=== PATIENT | female | born 1965 | race African-American/Black ===

== ENCOUNTER 2017-05-20 11:34 | Inpatient (IN) | payer OTHER ==
[2017-05-20 12:23] VITALS: BMI 29.0
--- NOTE | 2017-05-20 15:09 | HP ---
CIWA Score - CIWA Score Nausea/Vomitin-No Nausea/No Vomiting Muscle Tremors: 3 Anxiety: 5 Agitation: 3 Paroxysmal Sweats: No Perspiration Orientation: 0-Oriented Tacttile Disturbances: 3-Moderate Itch/Numb/Burn Auditory Disturbances: 0-None Visual Disturbances: 0-None Headache: 0-None Present CIWA-Ar Total Score: 14 Admission ROS BHS - HPI Chief Complaint: WITHDRAWAL SX FROM ALCOHOL Allergies/Adverse Reactions: Allergies Allergy/AdvReac Type Severity Reaction Status Date / Time strawberry Allergy Severe Verified 05/20/17 13:19 tomato Allergy Mild Rash Verified 05/20/17 13:18 Penicillins AdvReac Intermediate Rash Verified 05/20/17 13:17 History of Present Illness: 51 Y/O AA/FEMALE WITH A HX OF ALCOHOL AND COCAINE DEPENDENCE ON MMTP SEEKING DETOX [place] Exam Limitations: No Limitations - Ebola screening Have you traveled outside of the country in the last 21 days: No (N) Have you had contact with anyone from an Ebola affected area: No Have you been sick,other than usual withdrawal symptoms: No Do you have a fever: No - Review of Systems Constitutional: Chills, Night Sweats, Changes in sleep EENT: reports: Blurred Vision (WEARS), Tearing, Nose Congestion, Dental Problems (UPPER DENTURE) Respiratory: reports: Shortness of Breath (HX OF ASTHMA), Wheezing Cardiac: reports: No Symptoms Reported GI: reports: Constipated : reports: Frequency Musculoskeletal: reports: Back Pain, Muscle Pain Integumentary: reports: Other (GENERALIZED VITILIGO) Neuro: reports: Headache Endocrine: reports: No Symptoms Reported Hematology: reports: Anemia Psychiatric: reports: Orientated x3, Anxious, Depressed Other Systems: Reviewed and Negative Patient History - Patient Medical History Hx Asthma: Yes (MDI) Hx Chronic Obstructive Pulmonary Disease (COPD): No Hx Cardiac Disorders: No Hx Hypertension: Yes Hx Seizures: No Hx Diabetes: No Hx Gastrointestinal Disorders: No Hx Genitourinary Disorders: No Hx Sexually Transmitted Disorders: No Hx Renal Disease (ESRD): No Hx Thyroid Disease: Yes (HX "BUT THEY SAY I DON'T HAVE IT NO MORE") Hx Human Immunodeficiency Virus (HIV): No (NEGATIVE HX) Hx Hepatitis C: No Hx Depression: Yes Hx Suicide Attempt: No (DENIES) Hx Bipolar Disorder: Yes Hx Schizophrenia: No - Patient Surgical History Past Surgical History: No Hx Neurologic Surgery: No Hx Cataract Extraction: No Hx Cardiac Surgery: No Hx Lung Surgery: No Hx Breast Surgery: No Hx Breast Biopsy: No Hx Abdominal Surgery: No Hx Appendectomy: No Hx Cholecystectomy: No Hx Genitourinary Surgery: No Hx Section: No Hx Orthopedic Surgery: No Anesthesia Reaction: No - PPD History Previous Implant?: Yes Documented Results: Negative w/o proof Implanted On Prior [facility] Admission?: No PPD to be Administered?: Yes - Reproductive History Patient is a Female of Child Bearing Age (11 -55 yrs old): Yes Last Menstrual Period: 03/25/17 Patient : No - Smoking Cessation Smoking history: Current every day smoker Have you smoked in the past 12 months: Yes Aproximately how many cigarettes per day: 10 Hx Chewing Tobacco Use: No Initiated information on smoking cessation: Yes 'Breaking Loose' booklet given: 05/20/17 - Substance & Tx. History Hx Alcohol Use: Yes (BEER) Hx Substance Use: Yes (CRACK) Substance Use Type: Alcohol, Cocaine Hx Substance Use Treatment: Yes (LAST TX AT [facility]) - Substances Abused Crack Route: Smoking Frequency: Daily Amount used: $150-100 per day Age of first use: 22 Date of Last Use: 05/20/17 Alcohol Route: Oral Frequency: Daily Amount used: 6pack of beer a day Age of first use: 23 Date of Last Use: 05/20/17 Family Disease History - Family Disease History Family History: Denies Admission Physical Exam BHS - Vital Signs Vital Signs: Vital Signs - 24 hr 05/20/17 12:21 Temperature 98.1 F Pulse Rate 69 Respiratory 18 Rate Blood Pressure 167/98 - Physical General Appearance: Yes: Moderate Distress, Irritable, Anxious HEENTM: Yes: EOMI, Normocephalic, RIAZ, Pharynx Normal Respiratory: Yes: Chest Non-Tender, Lungs Clear, Normal Breath Sounds, No Respiratory Distress Neck: Yes: No masses,lesions,Nodules, Supple, Trachea in good position Breast: Yes: Breast Exam Deferred Cardiology: Yes: Regular Rhythm, Regular Rate, S1, S2 Abdominal: Yes: Normal Bowel Sounds, Non Tender, Soft Genitourinary: Yes: Other (N/C) Back: Yes: Within Normal Limits Musculoskeletal: Yes: full range of Motion, Gait Steady Extremities: Yes: Normal Range of Motion, Non-Tender Neurological: Yes: iron installer II-XII NML intact, Fully Oriented, Alert, Motor Strength 5/5 Integumentary: Yes: Dry, Warm, Other (VITILIGO--GENERALIZED PATCHES OF DEPIGMENTED SKIN AREAS ON HANDS, LEGS AND FACE(MOUTH)) Lymphatic: Yes: Within Normal Limits - Diagnostic (1) Alcohol dependence with uncomplicated withdrawal Current Visit: Yes Status: Acute (2) Cocaine dependence, uncomplicated Current Visit: Yes Status: Acute (3) Vitiligo Current Visit: Yes Status: Chronic (4) Hypertension Current Visit: Yes Status: Chronic Qualifiers: Hypertension type: essential hypertension Qualified Code(s): I10 - Essential (primary) hypertension (5) History of asthma Current Visit: Yes Status: Chronic (6) Hypothyroidism Current Visit: Yes Status: Chronic Qualifiers: Hypothyroidism type: unspecified Qualified Code(s): E03.9 - Hypothyroidism , unspecified Cleared for Admission S - [facility] Level of Care: Medically Managed Detox Regimen/Protocol: Valium (PT PREFERS VALIUM TO LIBRIUM ) [facility] Breath Alcohol Content Breath Alcohol Content: 0 Urine Pregancy Test - Result Urine Test Results: Negative- NO Line Present Urine Drug Screen - Results Drug Screen Negative: No Urine Drug Screen Results: [facility]-Cocaine, MTD-Methadone
[2017-05-20] MEDS ORDERED: MAG HYDROX/AL HYDROX/SIMETH 30 ML UNIT-DOSE CUP PO PRN (15:23)
[2017-05-20] MEDS ORDERED: ACETAMINOPHEN 325 MG TABLET (FP) PO PRN (15:23)
[2017-05-20] MEDS ORDERED: IBUPROFEN 400 MG TABLET (FP) PO PRN (15:23)
[2017-05-20] MEDS ORDERED: NICOTINE POLACRILEX 2 MG GUM BUC PRN (15:23)
[2017-05-20] MEDS ORDERED: MAGNESIUM HYDROX 2400MG/30ML ORAL SUSPENSION 30 ML CUP PO PRN (15:23)
[2017-05-20] MEDS ORDERED: MAGNESIUM CITRATE 300 ML BOTTLE PO PRN (15:23)
[2017-05-20] MEDS ORDERED: LOPERAMIDE HCL 2 MG CAPSULE PO PRN (15:23)
[2017-05-20] MEDS ORDERED: P-EPHED 60MG/TRIPROLIDI 2.5MG TABLET PO PRN (15:23)
[2017-05-20] MEDS ORDERED: guaiFENesin/D-METHORPHAN HB 10 ML UNIT-DOSE CUPS PO PRN (15:23)
[2017-05-20] MEDS ORDERED: MENTHOL/PHENOL 1 EACH UD MM PRN (15:23)
[2017-05-20 16:31] LABS: HEMOGLOBIN 12.9 GM/dL (10.7-15.3); MCH 32.3 pg (25.7-33.7); MCHC 33.1 g/dl (32.0-36.0); MEAN CELL VOLUME 97.4 fl (80-96); MEAN PLT VOLUME 10.3 fl (7.5-11.1); PLATELET COUNT 213 K/MM3 (134-434); RDW 14.4 % (11.6-15.6); WHITE BLOOD COUNT 6.3 K/mm3 (4.0-10.0)
[2017-05-20] MEDS ORDERED: diazePAM 5 MG TABLET PO ONE (17:15)
--- NOTE | 2017-05-20 17:31 | CONSULT ---
[facility] Psychiatric Consult - Data Date of interview: 05/20/17 Admission source: [facility] Identifying data: Pt. is a 51 year old single female, mother of three, unemployed and on disability. This is patient's first admission to [facility]. Pt admitted to for alcohol and crack dependence. Substance Abuse History: Following information confirmed with Ms. Light: Smoking Cessation. Smoking history: Current every day smoker. Have you smoked in the past 12 months: Yes. Aproximately how many cigarettes per day: 10. Hx Chewing Tobacco Use: No. Initiated information on smoking cessation: Yes. ' Breaking Loose' booklet given: 05/20/17. - Substance & Tx. History. Hx Alcohol Use: Yes (BEER). Hx Substance Use: Yes (CRACK). Substance Use Type: Alcohol, Cocaine. Hx Substance Use Treatment: Yes ([facility] - Substances Abused. Crack. Route: Smoking. Frequency: Daily. Amount used : $150-100 per day. Age of first use: 22. Date of Last Use: 05/20/17. Alcohol. Route: Oral. Frequency: Daily. Amount used: 6pack of beer a day. Age of first use: 23. Date of Last Use: 05/20/17 Medical History: hx of thyorid disease and Asthma Psychiatric History: Pt. denies h/o psychiatric hospitalizations. Pt. reports outpatient psychiatric care at [facility] by Dr. Cristiana Quintana. Reports a diagnosis of bipolar disorder. States she is prescribed seroquel 200mg, abilify 10mg, depakote 500 TID, and ambien 10mg qhs. It Senior Analyst contacted patient's pharmacy. As per patient's pharmacy, [facility] # [phone], patient is prescribed Depakote 500mg Delayed release TID,Seroquel 200mg qhs, effexor 75mg XR 1-2 capusles, abilify 10mg, and ambien 10mg qhs. Pt. denies h/o suicide attempts. Pt. denies suicidal and homicidal ideation. Physical/Sexual Abuse/Trauma History: Denies. Mental Status Exam - Mental Status Exam Alert and Oriented to: Time, Place, Person Cognitive Function: Good Patient Appearance: Unkempt Mood: Euthymic Affect: Mood Congruent Patient Behavior: Cooperative Speech Pattern: Appropriate Voice Loudness: Normal Thought Process: Goal Oriented Thought Disorder: Not Present Hallucinations: Denies Suicidal Ideation: Denies Homicidal Ideation: Denies Insight/Judgement: Poor Sleep: Poorly Appetite: Fair Muscle strength/Tone: Normal Gait/Station: Normal Psychiatric Findings - Problem List ([place] 1, 2,3) (1) Bipolar disorder Current Visit: Yes Status: Chronic Comment: Self reports. (2) Alcohol dependence with uncomplicated withdrawal Current Visit: Yes Status: Acute (3) Cocaine dependence, uncomplicated Current Visit: Yes Status: Acute - Initial Treatment Plan Initial Treatment Plan: Psychoeducation provided. Detoxification in progress. Seroquel 200mg qhs, abilify 10mg, and effexor 75mg ER ordered. Depakote will be held until lab results are complete. Ambien 10mg will also be held due to patient's request to avoid oversedation. Valproic acid level to be ordered for the morning. Benefits and side effects discussed. Verbal consent given. Will continue to monitor patient.
[2017-05-20] MEDS: NICOTINE 14 MG/24 HOURS TOPICAL PATCH TD SCH (17:46)
[2017-05-20 18:28] LABS: ALBUMIN 3.6 g/dl (3.4-5.0); ALK PHOS 148 U/L (45-117); BILIRUBIN,TOTAL 0.4 mg/dL (0.2-1.0); BLOOD UREA NITROGEN 12 mg/dL (7-18); CALCIUM 8.6 mg/dL (8.5-10.1); CO2 30 mmol/L (21-32); CREATININE 0.9 mg/dL (0.55-1.02); GLUCOSE,RANDOM 78 mg/dL (74-106); SGOT/AST 15 U/L (15-37); SGPT/ALT 21 U/L (12-78); TOT PROT 7.7 g/dl (6.4-8.2)
[2017-05-20 19:51] LABS: ANION GAP 4 (8-16); CHLORIDE 105 mmol/L (98-107); POTASSIUM 3.9 mmol/L (3.5-5.1); SODIUM 139 mmol/L (136-145)
[2017-05-20] MEDS ORDERED: ARIPiprazole 10 MG TABLET PO SCH (22:00)
[2017-05-20] MEDS ORDERED: PATIENT'S OWN MEDICATION (NON-FORMULARY) (Clonidine Hcl [Catapres] 0.2 MG) PO SCH (22:00)
[2017-05-20] MEDS: QUEtiapine FUMARATE 200 MG TABLET PO SCH (22:18)
[2017-05-20] MEDS: cloNIDine HCL 0.1 MG TABLET PO SCH (22:18)
[2017-05-20] MEDS: diazePAM 5 MG TABLET PO SCH (22:18)
[2017-05-20] MEDS: THIAMINE HCL 100 MG TABLET (FP) PO SCH (22:18)
[2017-05-21 00:24] LABS: URINE APPEARANCE CLEAR; URINE BILIRUBIN NEGATIVE (NEGATIVE); URINE BLOOD NEGATIVE (NEGATIVE); URINE COLOR LTYELLOW; URINE GLUCOSE (UA) NEGATIVE (NEGATIVE); URINE KETONE NEGATIVE (NEGATIVE); URINE LEUK ESTERASE NEGATIVE (NEGATIVE); URINE NITRITE NEGATIVE (NEGATIVE); URINE UROBILINOGEN NEGATIVE mg/dL (0.2-1.0)
[2017-05-21 00:30] LABS: URINE PROTEIN 1+ (NEGATIVE)
[2017-05-21 00:38] LABS: EPI CELLS RARE /HPF (FEW); URINE MUCUS RARE
[2017-05-21] MEDS: diazePAM 5 MG TABLET PO SCH ×3 (05:35→22:13)
[2017-05-21] MEDS: METHADONE HCL 40 MG DISPERSABLE TABLET PO SCH (05:35)
--- NOTE | 2017-05-21 08:03 | EKG ---
Test Reason : Blood Pressure : / mmHG Vent. Rate : 060 BPM Atrial Rate : 060 BPM P-R Int : 164 ms QRS Dur : 090 ms QT Int : 452 ms P-R-T Axes : 068 049 041 degrees QTc Int : 452 ms NORMAL SINUS RHYTHM MINIMAL VOLTAGE CRITERIA FOR LVH, MAY BE NORMAL VARIANT BORDERLINE ECG NO PREVIOUS ECGS AVAILABLE Confirmed by MART ALARCON MD ([id number]) on 05/21/2017 8:03:28 AM Referred By: Confirmed By:MART ALARCON MD
[2017-05-21] MEDS: LISINOPRIL 20 MG TABLET (FP) PO SCH (10:39)
[2017-05-21] MEDS: PRENATAL VITAMINS W/ FOLIC ACID TABLET (FP) PO SCH (10:39)
[2017-05-21] MEDS: ARIPiprazole 10 MG TABLET PO SCH (10:39)
[2017-05-21] MEDS: VENLAFAXINE HCL 75 MG E.R. CAPSULES (FP) PO SCH (10:39)
[2017-05-21] MEDS: diazePAM 5 MG TABLET PO PRN ×2 (10:39→18:36)
[2017-05-21] MEDS: cloNIDine HCL 0.1 MG TABLET PO SCH ×2 (10:39→22:13)
[2017-05-21] MEDS: NICOTINE 14 MG/24 HOURS TOPICAL PATCH TD SCH (10:42)
--- NOTE | 2017-05-21 10:46 | PN ---
S CIWA - CIWA Score Nausea/Vomitin-No Nausea/No Vomiting Muscle Tremors: 4-Moderate,w/Arms Extend Anxiety: 3 Agitation: 3 Paroxysmal Sweats: 1-Minimal Palms Moist Orientation: 0-Oriented Tacttile Disturbances: 0-None Auditory Disturbances: 0-None Visual Disturbances: 0-None Headache: 0-None Present CIWA-Ar Total Score: 11 BHS Progress Note (SOAP) Subjective: tremor sweat anxiety Objective: 05/21/17 10:45 Vital Signs Temperature 96.9 F L 05/21/17 10:00 Pulse Rate 60 05/21/17 10:00 Respiratory Rate 18 05/21/17 10:00 Blood Pressure 139/61 05/21/17 10:00 O2 Sat by Pulse Oximetry (%) Laboratory Last Values WBC 6.3 K/mm3 (4.0-10.0) 05/20/17 15:30 RBC 4.00 M/mm3 (3.60-5.2) 05/20/17 15:30 Hgb 12.9 GM/dL (10.7-15.3) 05/20/17 15:30 Hct 39.0 % (32.4-45.2) 05/20/17 15:30 MCV 97.4 fl (80-96) H 05/20/17 15:30 MCH 32.3 pg (25.7-33.7) 05/20/17 15:30 MCHC 33.1 g/dl (32.0-36.0) 05/20/17 15:30 RDW 14.4 % (11.6-15.6) 05/20/17 15:30 Plt Count 213 K/MM3 (134-434) 05/20/17 15:30 MPV 10.3 fl (7.5-11.1) 05/20/17 15:30 Sodium 139 mmol/L (136-145) 05/20/17 15:30 Potassium 3.9 mmol/L (3.5-5.1) 05/20/17 15:30 Chloride 105 mmol/L (98-107) 05/20/17 15:30 Carbon Dioxide 30 mmol/L (21-32) 05/20/17 15:30 Anion Gap 4 (8-16) L 05/20/17 15:30 BUN 12 mg/dL (7-18) 05/20/17 15:30 Creatinine 0.9 mg/dL (0.55-1.02) 05/20/17 15:30 Creat Clearance w eGFR > 60 (>60) 05/20/17 15:30 Random Glucose 78 mg/dL (74-106) 05/20/17 15:30 Calcium 8.6 mg/dL (8.5-10.1) 05/20/17 15:30 Total Bilirubin 0.4 mg/dL (0.2-1.0) 05/20/17 15:30 AST 15 U/L (15-37) 05/20/17 15:30 ALT 21 U/L (12-78) 05/20/17 15:30 Alkaline Phosphatase 148 U/L (45-117) H 05/20/17 15:30 Total Protein 7.7 g/dl (6.4-8.2) 05/20/17 15:30 Albumin 3.6 g/dl (3.4-5.0) 05/20/17 15:30 Urine Color Ltyellow 05/20/17 20:00 Urine Appearance Clear 05/20/17 20:00 Urine pH 5.0 (5.0-8.0) 05/20/17 20:00 Ur Specific [place] 1.016 (1.001-1.035) 05/20/17 20:00 Urine Protein 1+ (NEGATIVE) H 05/20/17 20:00 Urine Glucose (UA) Negative (NEGATIVE) 05/20/17 20:00 Urine Ketones Negative (NEGATIVE) 05/20/17 20:00 Urine Blood Negative (NEGATIVE) 05/20/17 20:00 Urine Nitrite Negative (NEGATIVE) 05/20/17 20:00 Urine Bilirubin Negative (NEGATIVE) 05/20/17 20:00 Urine Urobilinogen Negative mg/dL (0.2-1.0) 05/20/17 20:00 Ur Leukocyte Esterase Negative (NEGATIVE) 05/20/17 20:00 Urine WBC (Auto) 2 /hpf (3-5) 05/20/17 20:00 Urine RBC (Auto) 1 /hpf (0-3) 05/20/17 20:00 Ur Epithelial Cells Rare /HPF (FEW) 05/20/17 20:00 Urine Mucus Rare 05/20/17 20:00 RPR Titer Nonreactive (NONREACTIVE) 05/20/17 15:30 HIV 1&2 Antibody Screen Negative 05/20/17 15:00 HIV P24 Antigen Negative 05/20/17 15:00 lab noted Assessment: 05/21/17 10:45 withdrawal sx Plan: continue detox
--- NOTE | 2017-05-21 18:03 | PN ---
[facility] Progress Note Note: Psychiatric Nurse Practitioner: Patient approached in reference to restarting depakote. Patient's depakote level was 3.364. Pt. made aware of her current depakote level. Pt reports not taking the depakote and refuses to restart the medication. Will continue to monitor.
[2017-05-21] MEDS: THIAMINE HCL 100 MG TABLET (FP) PO SCH (22:13)
[2017-05-21] MEDS: QUEtiapine FUMARATE 200 MG TABLET PO SCH (22:14)
[2017-05-22] MEDS: METHADONE HCL 40 MG DISPERSABLE TABLET PO SCH (05:37)
--- NOTE | 2017-05-22 09:48 | PN ---
S CIWA - CIWA Score Nausea/Vomitin-No Nausea/No Vomiting Muscle Tremors: 3 Anxiety: 2 Agitation: 3 Paroxysmal Sweats: 1-Minimal Palms Moist Orientation: 0-Oriented Tacttile Disturbances: 0-None Auditory Disturbances: 0-None Visual Disturbances: 0-None Headache: 0-None Present CIWA-Ar Total Score: 9 BHS Progress Note (SOAP) Subjective: sweat tremor anxiety agitation Objective: 05/22/17 09:47 Vital Signs Temperature 98.1 F 05/22/17 06:00 Pulse Rate 60 05/22/17 06:00 Respiratory Rate 18 05/22/17 06:00 Blood Pressure 142/79 05/22/17 06:00 O2 Sat by Pulse Oximetry (%) Laboratory Last Values WBC 6.3 K/mm3 (4.0-10.0) 05/20/17 15:30 RBC 4.00 M/mm3 (3.60-5.2) 05/20/17 15:30 Hgb 12.9 GM/dL (10.7-15.3) 05/20/17 15:30 Hct 39.0 % (32.4-45.2) 05/20/17 15:30 MCV 97.4 fl (80-96) H 05/20/17 15:30 MCH 32.3 pg (25.7-33.7) 05/20/17 15:30 MCHC 33.1 g/dl (32.0-36.0) 05/20/17 15:30 RDW 14.4 % (11.6-15.6) 05/20/17 15:30 Plt Count 213 K/MM3 (134-434) 05/20/17 15:30 MPV 10.3 fl (7.5-11.1) 05/20/17 15:30 Sodium 139 mmol/L (136-145) 05/20/17 15:30 Potassium 3.9 mmol/L (3.5-5.1) 05/20/17 15:30 Chloride 105 mmol/L (98-107) 05/20/17 15:30 Carbon Dioxide 30 mmol/L (21-32) 05/20/17 15:30 Anion Gap 4 (8-16) L 05/20/17 15:30 BUN 12 mg/dL (7-18) 05/20/17 15:30 Creatinine 0.9 mg/dL (0.55-1.02) 05/20/17 15:30 Creat Clearance w eGFR > 60 (>60) 05/20/17 15:30 Random Glucose 78 mg/dL (74-106) 05/20/17 15:30 Calcium 8.6 mg/dL (8.5-10.1) 05/20/17 15:30 Total Bilirubin 0.4 mg/dL (0.2-1.0) 05/20/17 15:30 AST 15 U/L (15-37) 05/20/17 15:30 ALT 21 U/L (12-78) 05/20/17 15:30 Alkaline Phosphatase 148 U/L (45-117) H 05/20/17 15:30 Total Protein 7.7 g/dl (6.4-8.2) 05/20/17 15:30 Albumin 3.6 g/dl (3.4-5.0) 05/20/17 15:30 Urine Color Ltyellow 05/20/17 20:00 Urine Appearance Clear 05/20/17 20:00 Urine pH 5.0 (5.0-8.0) 05/20/17 20:00 Ur Specific [place] 1.016 (1.001-1.035) 05/20/17 20:00 Urine Protein 1+ (NEGATIVE) H 05/20/17 20:00 Urine Glucose (UA) Negative (NEGATIVE) 05/20/17 20:00 Urine Ketones Negative (NEGATIVE) 05/20/17 20:00 Urine Blood Negative (NEGATIVE) 05/20/17 20:00 Urine Nitrite Negative (NEGATIVE) 05/20/17 20:00 Urine Bilirubin Negative (NEGATIVE) 05/20/17 20:00 Urine Urobilinogen Negative mg/dL (0.2-1.0) 05/20/17 20:00 Ur Leukocyte Esterase Negative (NEGATIVE) 05/20/17 20:00 Urine WBC (Auto) 2 /hpf (3-5) 05/20/17 20:00 Urine RBC (Auto) 1 /hpf (0-3) 05/20/17 20:00 Ur Epithelial Cells Rare /HPF (FEW) 05/20/17 20:00 Urine Mucus Rare 05/20/17 20:00 Valproic Acid 3.364 ug/ml (50-100) L 05/21/17 07:00 RPR Titer Nonreactive (NONREACTIVE) 05/20/17 15:30 HIV 1&2 Antibody Screen Negative 05/20/17 15:00 HIV P24 Antigen Negative 05/20/17 15:00 lab noted Assessment: 05/22/17 09:47 withdrawal sx Plan: continue detox
[2017-05-22] MEDS: diazePAM 5 MG TABLET PO SCH ×2 (10:04→22:18)
[2017-05-22] MEDS: PRENATAL VITAMINS W/ FOLIC ACID TABLET (FP) PO SCH (10:05)
[2017-05-22] MEDS: NICOTINE 14 MG/24 HOURS TOPICAL PATCH TD SCH (10:05)
[2017-05-22] MEDS: ARIPiprazole 10 MG TABLET PO SCH (10:05)
[2017-05-22] MEDS: cloNIDine HCL 0.1 MG TABLET PO SCH ×2 (10:05→22:18)
[2017-05-22] MEDS: VENLAFAXINE HCL 75 MG E.R. CAPSULES (FP) PO SCH (10:05)
[2017-05-22] MEDS: LISINOPRIL 20 MG TABLET (FP) PO SCH (10:05)
[2017-05-22 11:48] LABS: SICKLE CELL SCREEN NEGATIVE (NEGATIVE)
[2017-05-22] MEDS: ARTIFICIAL TEARS (POLYVINYL ALCOHOL 1.4%) OPTH DROPS OU SCH ×4 (13:20→22:31)
[2017-05-22] MEDS: THIAMINE HCL 100 MG TABLET (FP) PO SCH (22:18)
[2017-05-22] MEDS: QUEtiapine FUMARATE 200 MG TABLET PO SCH (22:18)
[2017-05-23] MEDS: METHADONE HCL 40 MG DISPERSABLE TABLET PO SCH (05:31)
[2017-05-23] MEDS: PRENATAL VITAMINS W/ FOLIC ACID TABLET (FP) PO SCH (10:31)
[2017-05-23] MEDS: diazePAM 5 MG TABLET PO SCH ×2 (10:31→22:17)
[2017-05-23] MEDS: NICOTINE 14 MG/24 HOURS TOPICAL PATCH TD SCH (10:32)
[2017-05-23] MEDS: cloNIDine HCL 0.1 MG TABLET PO SCH ×2 (10:32→22:17)
[2017-05-23] MEDS: LISINOPRIL 20 MG TABLET (FP) PO SCH (10:32)
[2017-05-23] MEDS: VENLAFAXINE HCL 75 MG E.R. CAPSULES (FP) PO SCH (10:32)
[2017-05-23] MEDS: ARTIFICIAL TEARS (POLYVINYL ALCOHOL 1.4%) OPTH DROPS OU SCH ×5 (10:32→22:18)
[2017-05-23] MEDS: ARIPiprazole 10 MG TABLET PO SCH (10:32)
--- NOTE | 2017-05-23 13:59 | PN ---
S Progress Note (SOAP) Subjective: ALERT,IRRITABLE,ANXIOUS,INTERRUPTED SLEEP, Objective: 05/23/17 13:58 Vital Signs Temperature 97.7 F 05/23/17 10:14 Pulse Rate 70 05/23/17 10:14 Respiratory Rate 20 05/23/17 10:14 Blood Pressure 149/88 05/23/17 10:14 O2 Sat by Pulse Oximetry (%) Assessment: 05/23/17 13:58 WITHDRAWAL SYMPTOM Plan: CONTINUE DETOX,DISCHARGE IN AM AT 07.00
[2017-05-23] MEDS: THIAMINE HCL 100 MG TABLET (FP) PO SCH (22:17)
[2017-05-23] MEDS: QUEtiapine FUMARATE 200 MG TABLET PO SCH (22:17)
[2017-05-24] MEDS: METHADONE HCL 40 MG DISPERSABLE TABLET PO SCH (05:33)
--- NOTE | 2017-05-24 08:56 | DS ---
[facility] Detox Discharge Summary Admission Date: 05/20/17 Discharge Date: 05/24/17 - History Present History: Alcohol Dependence, Cocaine Dependence Additional Comments: FOLLOW UP WITH AFTER CARE PROGRAM ARRANGEMENT Pertinent Past History: HYPERTENSION HYPOTHYROIDISM ASTHMA VITILIGO MMTP BIPOLAR DISORDER - Physical Exam Results Vital Signs: Vital Signs Temperature 97.2 F L 05/24/17 06:35 Pulse Rate 66 05/24/17 06:35 Respiratory Rate 16 05/24/17 06:35 Blood Pressure 155/91 05/24/17 06:35 O2 Sat by Pulse Oximetry (%) Pertinent Admission Physical Exam Findings: WITHDRAWAL SYMPTOM AND FINDING - Treatment Hospital Course: Detox Protocol Followed, Detoxed Safely, Responded well, Discharged Condition Good, Rehab Referral Accepted Patient has Accepted a Rehab Referral to: [facility] - Medication Discharge Medications: Ambulatory Orders Clonidine HCl [Catapres] 0.3 mg PO BID 05/20/17 Lisinopril 20 mg PO DAILY 05/20/17 - Diagnosis (1) Alcohol dependence with uncomplicated withdrawal Current Visit: Yes Status: Acute (2) Cocaine dependence, uncomplicated Current Visit: Yes Status: Acute (3) Bipolar disorder Current Visit: Yes Status: Chronic (4) History of asthma Current Visit: Yes Status: Chronic (5) Hypertension Current Visit: Yes Status: Chronic Qualifiers: Hypertension type: essential hypertension Qualified Code(s): I10 - Essential (primary) hypertension (6) Hypothyroidism Current Visit: Yes Status: Chronic Qualifiers: Hypothyroidism type: unspecified Qualified Code(s): E03.9 - Hypothyroidism , unspecified (7) Vitiligo Current Visit: Yes Status: Chronic - AMA Did Patient Leave Against Medical Advice: No
[2017-05-24] MEDS ORDERED: diazePAM 5 MG TABLET PO SCH (10:00)
[2017-05-24 10:14] VITALS: BP 162/90; PULSE 69; TEMP 96.4
[2017-05-24] MEDS: PRENATAL VITAMINS W/ FOLIC ACID TABLET (FP) PO SCH (10:27)
[2017-05-24] MEDS: cloNIDine HCL 0.1 MG TABLET PO SCH (10:27)
[2017-05-24] MEDS: ARIPiprazole 10 MG TABLET PO SCH (10:27)
[2017-05-24] MEDS: LISINOPRIL 20 MG TABLET (FP) PO SCH (10:27)
[2017-05-24] MEDS: ARTIFICIAL TEARS (POLYVINYL ALCOHOL 1.4%) OPTH DROPS OU SCH (10:27)
[2017-05-24] MEDS: NICOTINE 14 MG/24 HOURS TOPICAL PATCH TD SCH (10:28)
[2017-05-24] MEDS: VENLAFAXINE HCL 75 MG E.R. CAPSULES (FP) PO SCH (10:28)
== END 2017-05-24 11:16 | disposition other institution (70) | DRG 774 ==
LOC: YASAS 11:34 → Y6N 16:17
PROVIDERS: ADMIT Internal Medicine; ATTEND Internal Medicine
PROC: HZ2ZZZZ Detoxification Services for Substance Abuse Treatment (ICD-10-PCS; principal; 2017-05-20)
DX: F10.230 Alcohol dependence with withdrawal, uncomplicated (principal); F14.20 Cocaine dependence, uncomplicated; F31.9 Bipolar disorder, unspecified; I10 Essential (primary) hypertension; E03.9 Hypothyroidism, unspecified; L80 Vitiligo; Z87.09 Personal history of other diseases of the respiratory system
CPT/HCPCS: 36415; 80053; 80164; 81003; 81015; 85027; 85660; 86593; 87389; 93005; 93010; J0735

== ENCOUNTER 2017-05-24 10:05 | Inpatient (IN) | payer OTHER ==
--- NOTE | 2017-05-24 12:51 | HP ---
[facility] Rehab Assess/Revision - Admission History Admitted to Rehab from: [facility] Date of Admission to Rehab: 05/24/17 - Vital signs Vital Signs: Vital Signs Period Temp Pulse Resp BP Sys/Jeronimo Pulse Ox Last 24 Hr 97.2 F 71 18 164/100 - Findings Detox History & Physical reviewed: Yes Concur with findings: Yes Comments/Additional Findings: FOR REHAB PROTOCOL Inpatient Rehab Admission - Initial Determination Are CD services needed?: Yes Free of communicable disease: Yes Not in need of hospitalization: Yes - Rehab Admission Criteria Previous failed treatment: Yes Poor recovery environment: Yes Comorbidities: Yes Lacks judgement: No Patient is meeting Inpatient Rehab admission criteria:: Yes
[2017-05-24] MEDS ORDERED: LOPERAMIDE HCL 2 MG CAPSULE PO PRN (12:52)
[2017-05-24] MEDS ORDERED: P-EPHED 60MG/TRIPROLIDI 2.5MG TABLET PO PRN (12:52)
[2017-05-24] MEDS ORDERED: IBUPROFEN 400 MG TABLET (FP) PO PRN (12:52)
[2017-05-24] MEDS ORDERED: guaiFENesin/D-METHORPHAN HB 10 ML UNIT-DOSE CUPS PO PRN (12:52)
[2017-05-24] MEDS ORDERED: hydrOXYzine PAMOATE 50 MG CAPSULE (FP) PO PRN (12:52)
[2017-05-24] MEDS ORDERED: MAGNESIUM CITRATE 300 ML BOTTLE PO PRN (12:52)
[2017-05-24] MEDS ORDERED: MAGNESIUM HYDROX 2400MG/30ML ORAL SUSPENSION 30 ML CUP PO PRN (12:52)
[2017-05-24] MEDS ORDERED: ACETAMINOPHEN 325 MG TABLET (FP) PO PRN (12:52)
[2017-05-24] MEDS ORDERED: MENTHOL/PHENOL 1 EACH UD MM PRN (12:52)
[2017-05-24] MEDS ORDERED: MAG HYDROX/AL HYDROX/SIMETH 30 ML UNIT-DOSE CUP PO PRN (12:52)
[2017-05-24] MEDS: QUEtiapine FUMARATE 200 MG TABLET PO SCH (21:22)
[2017-05-24] MEDS: cloNIDine HCL 0.1 MG TABLET PO SCH (21:22)
[2017-05-24] MEDS: THIAMINE HCL 100 MG TABLET (FP) PO SCH (21:22)
[2017-05-24] MEDS: ARTIFICIAL TEARS (POLYVINYL ALCOHOL 1.4%) OPTH DROPS OU SCH (21:23)
[2017-05-24] MEDS ORDERED: PT OWN MED DRAWER 7, Y5N ONE (21:23)
[2017-05-24] MEDS: DIVALPROEX NA *ER* EXTEND REL 500 MG TABLET.SA (FP) PO SCH (23:42)
[2017-05-25] MEDS ORDERED: METHADONE HCL 10 MG TABLET PO SCH (06:00)
[2017-05-25] MEDS: METHADONE HCL 40 MG DISPERSABLE TABLET PO SCH (06:42)
[2017-05-25] MEDS: DIVALPROEX NA *ER* EXTEND REL 500 MG TABLET.SA (FP) PO SCH ×3 (06:42→21:29)
[2017-05-25] MEDS ORDERED: PT OWN MED DRAWER 7, Y5N ONE (08:47)
[2017-05-25] MEDS: NICOTINE 14 MG/24 HOURS TOPICAL PATCH TD SCH (10:15)
[2017-05-25] MEDS: cloNIDine HCL 0.1 MG TABLET PO SCH ×2 (10:16→22:09)
[2017-05-25] MEDS: PRENATAL VITAMINS W/ FOLIC ACID TABLET (FP) PO SCH (10:16)
[2017-05-25] MEDS: ARIPiprazole 10 MG TABLET PO SCH (10:16)
[2017-05-25] MEDS: ARTIFICIAL TEARS (POLYVINYL ALCOHOL 1.4%) OPTH DROPS OU SCH ×2 (10:17→21:30)
[2017-05-25] MEDS: LISINOPRIL 20 MG TABLET (FP) PO SCH (12:45)
[2017-05-25] MEDS: THIAMINE HCL 100 MG TABLET (FP) PO SCH (21:29)
[2017-05-25] MEDS: QUEtiapine FUMARATE 200 MG TABLET PO SCH (21:29)
[2017-05-26] MEDS: METHADONE HCL 40 MG DISPERSABLE TABLET PO SCH (06:44)
[2017-05-26] MEDS: DIVALPROEX NA *ER* EXTEND REL 500 MG TABLET.SA (FP) PO SCH ×3 (06:44→21:26)
[2017-05-26] MEDS ORDERED: PT OWN MED DRAWER 7, Y5N ONE (08:49)
--- NOTE | 2017-05-26 08:59 | HP ---
Psychiatrist Admission - Data Date of interview: 05/26/17 Admission source: [address] [place] [address] detox Identifying data: This is the first admission to [address] [place] [address] for this 51 years old single AA female mother of 3, unemployed , on ssi. Medical History: BA,Hypothyroidism. Psychiatric History: REports first contact with psychiartist was about 7 years ago while in one of the outpatient rehabilitation treatment to address her mood instability,drug use,depression.Patient was dx with Bipolar disorder and placed on medications.She denies psychiatric hospitalizations,no suicidal attempts reported.Patient sees psychiatrist DR.Edith Quintana at [facility] .Current medications she is on and which continued while in Detox on [address] [place] [address] :Depakote ER 500 mg po tid,Seroquel 200 mg po hs and Abilify 10 mg po daily. Physical/Sexual Abuse/Trauma History: denies Vital Signs: Vital Signs - 24 hr 05/25/17 05/25/17 05/26/17 10:25 12:42 00:30 Temperature Pulse Rate 69 74 Respiratory 18 Rate Blood Pressure 158/94 150/80 05/26/17 05/26/17 03:30 07:10 Temperature 97.9 F Pulse Rate 72 Respiratory 18 18 Rate Blood Pressure 154/88 Allergies/Adverse Reactions: Allergies Allergy/AdvReac Type Severity Reaction Status Date / Time strawberry Allergy Severe Verified 05/20/17 13:19 tomato Allergy Mild Rash Verified 05/20/17 13:18 Penicillins AdvReac Intermediate Rash Verified 05/20/17 13:17 Date of last physical exam: 05/20/17 Concur with the findings of this exam: Yes - Substance Abuse/Tx History Hx Alcohol Use: Yes (drinking since 22 yo,6 packs of beer daily) Hx Substance Use: Yes (crack/cocaine 22 yo,$150 daily) Substance Use Type: Alcohol, Cocaine Hx Substance Use Treatment: Yes (reports longest abstinence 5 years) Mental Status Exam - Mental Status Exam Alert and Oriented to: Time, Place, Person Cognitive Function: Grossly Intact Patient Appearance: Well Groomed Mood: Sad Affect: Mood Congruent Patient Behavior: Cooperative Speech Pattern: Clear Voice Loudness: Normal Thought Process: Goal Oriented Thought Disorder: Not Present Hallucinations: Denies Suicidal Ideation: Denies Homicidal Ideation: Denies Insight/Judgement: Fair Sleep: Fair Appetite: Good Muscle strength/Tone: Normal Gait/Station: Normal Psychiatric Findings - Problem List ([place] 1, 2,3) (1) Cocaine dependence, uncomplicated Current Visit: Yes Status: Chronic (2) Bipolar disorder Current Visit: Yes Status: Chronic Comment: Self reports. (3) History of asthma Current Visit: Yes Status: Chronic (4) Hypertension Current Visit: Yes Status: Chronic Qualifiers: (5) Hypothyroidism Current Visit: Yes Status: Chronic Qualifiers: (6) Vitiligo Current Visit: Yes Status: Chronic (7) Alcohol dependence Current Visit: Yes Status: Chronic - Initial Treatment Plan Initial Treatment Plan: Continue current medications as per plan.WILL MONITOR PROGRESS.
[2017-05-26] MEDS: ARIPiprazole 10 MG TABLET PO SCH (10:11)
[2017-05-26] MEDS: NICOTINE 14 MG/24 HOURS TOPICAL PATCH TD SCH (10:11)
[2017-05-26] MEDS: LISINOPRIL 20 MG TABLET (FP) PO SCH (10:11)
[2017-05-26] MEDS: PRENATAL VITAMINS W/ FOLIC ACID TABLET (FP) PO SCH (10:11)
[2017-05-26] MEDS: ARTIFICIAL TEARS (POLYVINYL ALCOHOL 1.4%) OPTH DROPS OU SCH ×2 (10:11→21:26)
[2017-05-26] MEDS: cloNIDine HCL 0.1 MG TABLET PO SCH ×2 (10:11→21:26)
[2017-05-26] MEDS: QUEtiapine FUMARATE 200 MG TABLET PO SCH (21:26)
[2017-05-26] MEDS: THIAMINE HCL 100 MG TABLET (FP) PO SCH (21:26)
[2017-05-27] MEDS: DIVALPROEX NA *ER* EXTEND REL 500 MG TABLET.SA (FP) PO SCH ×3 (06:26→21:17)
[2017-05-27] MEDS: METHADONE HCL 40 MG DISPERSABLE TABLET PO SCH (06:26)
[2017-05-27] MEDS ORDERED: PT OWN MED DRAWER 7, Y5N ONE (08:49)
[2017-05-27] MEDS: PRENATAL VITAMINS W/ FOLIC ACID TABLET (FP) PO SCH (09:55)
[2017-05-27] MEDS: cloNIDine HCL 0.1 MG TABLET PO SCH ×2 (09:55→21:17)
[2017-05-27] MEDS: ARIPiprazole 10 MG TABLET PO SCH (09:56)
[2017-05-27] MEDS: LISINOPRIL 20 MG TABLET (FP) PO SCH (09:56)
[2017-05-27] MEDS: NICOTINE 14 MG/24 HOURS TOPICAL PATCH TD SCH (09:56)
[2017-05-27] MEDS: ARTIFICIAL TEARS (POLYVINYL ALCOHOL 1.4%) OPTH DROPS OU SCH ×2 (09:56→21:17)
[2017-05-27] MEDS: THIAMINE HCL 100 MG TABLET (FP) PO SCH (21:17)
[2017-05-27] MEDS: QUEtiapine FUMARATE 200 MG TABLET PO SCH (21:17)
[2017-05-28] MEDS: METHADONE HCL 40 MG DISPERSABLE TABLET PO SCH (06:45)
[2017-05-28] MEDS: DIVALPROEX NA *ER* EXTEND REL 500 MG TABLET.SA (FP) PO SCH ×3 (06:45→21:29)
[2017-05-28] MEDS: ARTIFICIAL TEARS (POLYVINYL ALCOHOL 1.4%) OPTH DROPS OU SCH ×2 (10:07→21:29)
[2017-05-28] MEDS: LISINOPRIL 20 MG TABLET (FP) PO SCH (10:07)
[2017-05-28] MEDS: NICOTINE 14 MG/24 HOURS TOPICAL PATCH TD SCH (10:07)
[2017-05-28] MEDS: ARIPiprazole 10 MG TABLET PO SCH (10:07)
[2017-05-28] MEDS: PRENATAL VITAMINS W/ FOLIC ACID TABLET (FP) PO SCH (10:07)
[2017-05-28] MEDS: cloNIDine HCL 0.1 MG TABLET PO SCH ×2 (10:08→21:29)
[2017-05-28] MEDS ORDERED: ALBUTEROL SO4 2.5/IPRATROPIUM 0.5 INH SOL 3 ML VIAL.NEB. NEB PRN (17:14)
[2017-05-28] MEDS: QUEtiapine FUMARATE 200 MG TABLET PO SCH (21:29)
[2017-05-28] MEDS: THIAMINE HCL 100 MG TABLET (FP) PO SCH (21:29)
[2017-05-29] MEDS: METHADONE HCL 40 MG DISPERSABLE TABLET PO SCH (06:53)
[2017-05-29] MEDS: DIVALPROEX NA *ER* EXTEND REL 500 MG TABLET.SA (FP) PO SCH ×3 (06:53→21:34)
[2017-05-29] MEDS: LISINOPRIL 20 MG TABLET (FP) PO SCH (10:06)
[2017-05-29] MEDS: cloNIDine HCL 0.1 MG TABLET PO SCH ×2 (10:06→21:34)
[2017-05-29] MEDS: NICOTINE 14 MG/24 HOURS TOPICAL PATCH TD SCH (10:06)
[2017-05-29] MEDS: ARIPiprazole 10 MG TABLET PO SCH (10:06)
[2017-05-29] MEDS: PRENATAL VITAMINS W/ FOLIC ACID TABLET (FP) PO SCH (10:06)
[2017-05-29] MEDS ORDERED: PT OWN MED DRAWER 7, Y5N ONE (10:08)
[2017-05-29] MEDS: ARTIFICIAL TEARS (POLYVINYL ALCOHOL 1.4%) OPTH DROPS OU SCH ×2 (10:08→21:36)
--- NOTE | 2017-05-29 10:19 | PN ---
BHS Progress Note (SOAP) Subjective: pt appears AAOx3 Objective: 05/29/17 10:18 Vital Signs Temperature 97.9 F 05/29/17 07:15 Pulse Rate 75 05/29/17 09:47 Respiratory Rate 18 05/29/17 07:15 Blood Pressure 150/80 05/29/17 09:47 O2 Sat by Pulse Oximetry (%) ammonia level pending Assessment: 05/29/17 10:18 pt is AAOx3 no s/s of confusion however pt states that she was a little disoriented last night but is feeling much better. Plan: will discuss the lab result with pt when result arrive.
--- NOTE | 2017-05-29 13:06 | PN ---
BHS Progress Note Note: ammonia level 79.75; pt is not confused at this time. will start laculose 20gm tid will re order ammonia level
[2017-05-29] MEDS: LACTULOSE 20 GM/30 ML UDC (FOR ORAL USE ONLY) PO SCH ×2 (15:11→21:34)
[2017-05-29] MEDS: THIAMINE HCL 100 MG TABLET (FP) PO SCH (21:34)
[2017-05-29] MEDS: QUEtiapine FUMARATE 200 MG TABLET PO SCH (21:35)
[2017-05-30] MEDS: LACTULOSE 20 GM/30 ML UDC (FOR ORAL USE ONLY) PO SCH ×3 (06:41→21:38)
[2017-05-30] MEDS: METHADONE HCL 40 MG DISPERSABLE TABLET PO SCH (06:41)
[2017-05-30] MEDS: DIVALPROEX NA *ER* EXTEND REL 500 MG TABLET.SA (FP) PO SCH ×3 (06:41→21:38)
[2017-05-30] MEDS ORDERED: PT OWN MED DRAWER 7, Y5N ONE (08:35)
[2017-05-30] MEDS: cloNIDine HCL 0.1 MG TABLET PO SCH ×2 (10:34→21:38)
[2017-05-30] MEDS: PRENATAL VITAMINS W/ FOLIC ACID TABLET (FP) PO SCH (10:34)
[2017-05-30] MEDS: ARIPiprazole 10 MG TABLET PO SCH (10:34)
[2017-05-30] MEDS: ARTIFICIAL TEARS (POLYVINYL ALCOHOL 1.4%) OPTH DROPS OU SCH ×2 (10:34→21:39)
[2017-05-30] MEDS: LISINOPRIL 20 MG TABLET (FP) PO SCH (10:34)
[2017-05-30] MEDS: NICOTINE 14 MG/24 HOURS TOPICAL PATCH TD SCH (10:35)
[2017-05-30] MEDS: QUEtiapine FUMARATE 200 MG TABLET PO SCH (21:38)
[2017-05-30] MEDS: THIAMINE HCL 100 MG TABLET (FP) PO SCH (21:38)
[2017-05-31] MEDS: METHADONE HCL 40 MG DISPERSABLE TABLET PO SCH (06:45)
[2017-05-31] MEDS: LACTULOSE 20 GM/30 ML UDC (FOR ORAL USE ONLY) PO SCH ×2 (06:46→21:29)
[2017-05-31] MEDS: DIVALPROEX NA *ER* EXTEND REL 500 MG TABLET.SA (FP) PO SCH ×3 (06:46→21:27)
[2017-05-31] MEDS ORDERED: PT OWN MED DRAWER 7, Y5N ONE (08:36)
[2017-05-31] MEDS: ARIPiprazole 10 MG TABLET PO SCH (09:55)
[2017-05-31] MEDS: NICOTINE 14 MG/24 HOURS TOPICAL PATCH TD SCH (09:56)
[2017-05-31] MEDS: PRENATAL VITAMINS W/ FOLIC ACID TABLET (FP) PO SCH (09:56)
[2017-05-31] MEDS: ARTIFICIAL TEARS (POLYVINYL ALCOHOL 1.4%) OPTH DROPS OU SCH ×2 (09:56→21:27)
[2017-05-31] MEDS: cloNIDine HCL 0.1 MG TABLET PO SCH ×2 (09:56→21:27)
[2017-05-31] MEDS: LISINOPRIL 20 MG TABLET (FP) PO SCH (09:57)
[2017-05-31] MEDS ORDERED: ALBUTEROL SO4 18 GM HFA INHALER IH PRN (14:28)
[2017-05-31] MEDS: QUEtiapine FUMARATE 200 MG TABLET PO SCH (21:27)
[2017-05-31] MEDS: THIAMINE HCL 100 MG TABLET (FP) PO SCH (21:27)
[2017-06-01] MEDS: METHADONE HCL 40 MG DISPERSABLE TABLET PO SCH (06:13)
[2017-06-01] MEDS: DIVALPROEX NA *ER* EXTEND REL 500 MG TABLET.SA (FP) PO SCH ×3 (06:14→21:05)
[2017-06-01] MEDS: LACTULOSE 20 GM/30 ML UDC (FOR ORAL USE ONLY) PO SCH ×2 (09:14→21:06)
[2017-06-01] MEDS: cloNIDine HCL 0.1 MG TABLET PO SCH ×2 (09:15→21:05)
[2017-06-01] MEDS: PRENATAL VITAMINS W/ FOLIC ACID TABLET (FP) PO SCH (09:15)
[2017-06-01] MEDS: NICOTINE 14 MG/24 HOURS TOPICAL PATCH TD SCH (09:15)
[2017-06-01] MEDS: LISINOPRIL 20 MG TABLET (FP) PO SCH (09:15)
[2017-06-01] MEDS: ARIPiprazole 10 MG TABLET PO SCH (09:15)
[2017-06-01] MEDS: ARTIFICIAL TEARS (POLYVINYL ALCOHOL 1.4%) OPTH DROPS OU PRN (09:16)
[2017-06-01] MEDS: NICOTINE POLACRILEX 2 MG GUM BUC PRN ×3 (09:16→21:07)
[2017-06-01] MEDS: THIAMINE HCL 100 MG TABLET (FP) PO SCH (21:05)
[2017-06-01] MEDS: QUEtiapine FUMARATE 200 MG TABLET PO SCH (21:05)
[2017-06-02] MEDS: METHADONE HCL 40 MG DISPERSABLE TABLET PO SCH (06:41)
[2017-06-02] MEDS: DIVALPROEX NA *ER* EXTEND REL 500 MG TABLET.SA (FP) PO SCH ×3 (06:41→21:37)
[2017-06-02] MEDS: NICOTINE POLACRILEX 2 MG GUM BUC PRN ×3 (06:42→13:24)
[2017-06-02] MEDS ORDERED: cloNIDine HCL 0.1 MG TABLET PO SCH (07:00)
[2017-06-02] MEDS: NICOTINE 14 MG/24 HOURS TOPICAL PATCH TD SCH (10:20)
[2017-06-02] MEDS: PRENATAL VITAMINS W/ FOLIC ACID TABLET (FP) PO SCH (10:20)
[2017-06-02] MEDS: LACTULOSE 20 GM/30 ML UDC (FOR ORAL USE ONLY) PO SCH ×3 (10:20→21:38)
[2017-06-02] MEDS: LISINOPRIL 20 MG TABLET (FP) PO SCH (10:20)
[2017-06-02] MEDS: ARIPiprazole 10 MG TABLET PO SCH (10:20)
[2017-06-02] MEDS: amLODIPine BESYLATE 10 MG TABLET (FP) PO SCH (12:13)
[2017-06-02] MEDS ORDERED: PT OWN MED DRAWER 7, Y5N ONE ×2 (12:47→13:43)
--- NOTE | 2017-06-02 17:43 | PN ---
S Progress Note Note: Patient was seen today due to elevated Ammonia level.Properties of Depakote has been discussed with the patient ,Valproic acid level will be checked tomorrow and appropriate adjustments will be made if needed..
[2017-06-02] MEDS: THIAMINE HCL 100 MG TABLET (FP) PO SCH (21:37)
[2017-06-02] MEDS: QUEtiapine FUMARATE 200 MG TABLET PO SCH (21:39)
[2017-06-02] MEDS ORDERED: QUEtiapine FUMARATE 100 MG TABLET (FP) PO SCH (22:00)
[2017-06-03] MEDS: LACTULOSE 20 GM/30 ML UDC (FOR ORAL USE ONLY) PO SCH ×3 (06:15→21:52)
[2017-06-03] MEDS: DIVALPROEX NA *ER* EXTEND REL 500 MG TABLET.SA (FP) PO SCH ×3 (06:15→21:52)
[2017-06-03] MEDS: METHADONE HCL 40 MG DISPERSABLE TABLET PO SCH (06:15)
[2017-06-03] MEDS: NICOTINE POLACRILEX 2 MG GUM BUC PRN ×3 (06:33→15:47)
[2017-06-03] MEDS: NICOTINE 14 MG/24 HOURS TOPICAL PATCH TD SCH (09:35)
[2017-06-03] MEDS: LISINOPRIL 20 MG TABLET (FP) PO SCH ×2 (09:36→21:53)
[2017-06-03] MEDS: amLODIPine BESYLATE 10 MG TABLET (FP) PO SCH (09:36)
[2017-06-03] MEDS: ARIPiprazole 10 MG TABLET PO SCH (09:36)
[2017-06-03] MEDS: PRENATAL VITAMINS W/ FOLIC ACID TABLET (FP) PO SCH (09:36)
--- NOTE | 2017-06-03 15:16 | PN ---
S Progress Note (SOAP) Subjective: patient still hypertensive off clonidine on new meds, need to adjust medication Objective: 06/03/17 15:14 Vital Signs - 24 hr 06/02/17 06/03/17 06/03/17 22:03 00:30 03:30 Temperature Pulse Rate 64 Respiratory 16 16 Rate Blood Pressure 158/94 06/03/17 06/03/17 07:24 09:00 Temperature 97.2 F L Pulse Rate 71 76 Respiratory 18 Rate Blood Pressure 153/93 162/94 Laboratory Tests 05/29/17 05/31/17 06/02/17 07:30 09:30 08:40 Ammonia 79.75 H 37.49 H 100.4 H Valproic Acid 06/03/17 07:30 Ammonia Valproic Acid 84.725 labs reviewed, elevated ammonia Assessment: 06/03/17 15:15 essential htn off clonidine, increase lisinopril, start hctz, cont norvas c, clonidine x1 dose now. increase lactulose to tereat elevateda mmonia level.
[2017-06-03] MEDS ORDERED: cloNIDine HCL 0.1 MG TABLET PO ONE (15:27)
[2017-06-03] MEDS: HYDROCHLOROTHIAZIDE 12.5 MG CAPSULE (FP) PO SCH (15:45)
[2017-06-03] MEDS ORDERED: PT OWN MED DRAWER 7, Y5N ONE (15:47)
[2017-06-03] MEDS: THIAMINE HCL 100 MG TABLET (FP) PO SCH (21:52)
[2017-06-03] MEDS: QUEtiapine FUMARATE 200 MG TABLET PO SCH (21:52)
[2017-06-04] MEDS: LACTULOSE 20 GM/30 ML UDC (FOR ORAL USE ONLY) PO SCH ×3 (06:25→21:34)
[2017-06-04] MEDS: DIVALPROEX NA *ER* EXTEND REL 500 MG TABLET.SA (FP) PO SCH ×3 (06:25→21:34)
[2017-06-04] MEDS: METHADONE HCL 40 MG DISPERSABLE TABLET PO SCH (06:25)
[2017-06-04] MEDS: NICOTINE POLACRILEX 2 MG GUM BUC PRN ×3 (06:29→13:09)
[2017-06-04] MEDS: ARTIFICIAL TEARS (POLYVINYL ALCOHOL 1.4%) OPTH DROPS OU PRN (10:18)
[2017-06-04] MEDS: NICOTINE 14 MG/24 HOURS TOPICAL PATCH TD SCH (10:18)
[2017-06-04] MEDS: ARIPiprazole 10 MG TABLET PO SCH (10:18)
[2017-06-04] MEDS: LISINOPRIL 20 MG TABLET (FP) PO SCH ×2 (10:19→21:34)
[2017-06-04] MEDS: amLODIPine BESYLATE 10 MG TABLET (FP) PO SCH (10:19)
[2017-06-04] MEDS: HYDROCHLOROTHIAZIDE 12.5 MG CAPSULE (FP) PO SCH (10:19)
[2017-06-04] MEDS: PRENATAL VITAMINS W/ FOLIC ACID TABLET (FP) PO SCH (10:19)
[2017-06-04] MEDS: QUEtiapine FUMARATE 200 MG TABLET PO SCH (21:34)
[2017-06-04] MEDS: THIAMINE HCL 100 MG TABLET (FP) PO SCH (21:34)
[2017-06-05] MEDS: NICOTINE POLACRILEX 2 MG GUM BUC PRN ×2 (06:23→09:33)
[2017-06-05] MEDS: DIVALPROEX NA *ER* EXTEND REL 500 MG TABLET.SA (FP) PO SCH ×3 (06:23→21:31)
[2017-06-05] MEDS: METHADONE HCL 40 MG DISPERSABLE TABLET PO SCH (06:23)
[2017-06-05] MEDS: LACTULOSE 20 GM/30 ML UDC (FOR ORAL USE ONLY) PO SCH ×3 (06:23→21:31)
[2017-06-05] MEDS: HYDROCHLOROTHIAZIDE 12.5 MG CAPSULE (FP) PO SCH (09:31)
[2017-06-05] MEDS: LISINOPRIL 20 MG TABLET (FP) PO SCH ×2 (09:31→21:31)
[2017-06-05] MEDS: ARIPiprazole 10 MG TABLET PO SCH (09:31)
[2017-06-05] MEDS: PRENATAL VITAMINS W/ FOLIC ACID TABLET (FP) PO SCH (09:31)
[2017-06-05] MEDS: NICOTINE 14 MG/24 HOURS TOPICAL PATCH TD SCH (09:31)
[2017-06-05] MEDS: amLODIPine BESYLATE 10 MG TABLET (FP) PO SCH (09:31)
[2017-06-05] MEDS: HYDROCHLOROTHIAZIDE 25 MG TABLET (FP) PO SCH (14:55)
[2017-06-05] MEDS ORDERED: cloNIDine HCL 0.1 MG TABLET PO ONE (17:15)
[2017-06-05] MEDS: THIAMINE HCL 100 MG TABLET (FP) PO SCH (21:31)
[2017-06-05] MEDS: QUEtiapine FUMARATE 200 MG TABLET PO SCH (21:31)
[2017-06-05] MEDS: cloNIDine HCL 0.1 MG TABLET PO SCH (21:33)
[2017-06-06] MEDS ORDERED: METHADONE HCL 40 MG DISPERSABLE TABLET PO ONE (06:00)
[2017-06-06] MEDS: DIVALPROEX NA *ER* EXTEND REL 500 MG TABLET.SA (FP) PO SCH (06:38)
[2017-06-06] MEDS: LACTULOSE 20 GM/30 ML UDC (FOR ORAL USE ONLY) PO SCH (06:38)
[2017-06-06] MEDS: NICOTINE POLACRILEX 2 MG GUM BUC PRN (06:40)
[2017-06-06 07:15] VITALS: TEMP 98
--- NOTE | 2017-06-06 08:46 | PN ---
Psychiatric Progress Note Vital Signs: Vital Signs Period Temp Pulse Resp BP Sys/Jeronimo Pulse Ox Last 24 Hr 98.0 F-99 F 81-93 17-18 130-184/84-102 Date of Session: 06/06/17 Chief Complaint:: Discharge visit HPI: Patient addressed Cocaine,Alcohol dependence comorbid Current Medications: Active Medications Generic Name Dose Route Start Last Admin Trade Name Freq PRN Reason Stop Dose Admin Al Hydroxide/Mg Hydroxide 30 ml 05/24/17 12:52 06/01/17 15:13 Mylanta Oral Suspension - PO 30 ml Q6H PRN Administration DYSPEPSIA Albuterol Sulfate 0 puff 05/31/17 14:28 05/31/17 15:10 Ventolin Hfa Inhaler - IH 2 puff Q4H PRN Administration SHORT OF BREATH/WHEEZING Albuterol/Ipratropium 1 amp 05/28/17 17:14 Duoneb - NEB Q6H PRN SHORTNESS OF BREATH Amlodipine Besylate 10 mg 06/02/17 11:44 06/05/17 09:31 Norvasc - PO 10 mg DAILY TERRY Administration Aripiprazole 10 mg 05/25/17 10:00 06/05/17 09:31 Abilify PO 10 mg DAILY TERRY Administration Artificial Tears 1 drop 06/01/17 06:17 06/04/17 10:18 Artificial Tears OU 1 drop BID PRN Administration DRY EYES Clonidine 0.1 mg 06/05/17 22:00 06/05/17 21:33 Catapres - PO 0.1 mg BID TERRY Administration Divalproex Sodium 500 mg 05/24/17 22:00 06/06/17 06:38 Depakote *Er* - PO 500 mg TID TERRY Administration Eucalyptus/Menthol/Phenol/Sorbitol 1 each 05/24/17 12:52 Cepastat Lozenge - MM Q4H PRN SORE THROAT Hydrochlorothiazide 25 mg 06/05/17 14:45 06/05/17 14:55 Hctz - PO 25 mg DAILY TERRY Administration Lactulose 20 gm 06/02/17 14:00 06/06/17 06:38 Cephulac (Oral Use) PO 20 gm TID TERRY Administration Lisinopril 20 mg 06/03/17 22:00 06/05/17 21:31 Prinivil PO 20 mg BID TERRY Administration Loperamide HCl 4 mg 05/24/17 12:52 Imodium - PO Q6H PRN DIARRHEA Magnesium Citrate 300 ml 05/24/17 12:52 05/30/17 16:50 Citroma - PO 300 ml Q48H PRN Administration CONSTIPATION Magnesium Hydroxide 30 ml 05/24/17 12:52 05/28/17 21:30 Milk Of Magnesia - PO 30 ml DAILY PRN Administration CONSTIPATION Nicotine 14 mg 05/25/17 10:00 06/05/17 09:31 Nicoderm Patch - TD Not Given DAILY TERRY Nicotine Polacrilex 2 mg 05/24/17 12:52 06/06/17 06:40 Nicorette Gum - BUC 2 mg Q2H PRN Administration NICOTINE REPLACEMENT RX Multivit/Folic Acid/Iron 1 tab 05/25/17 10:00 06/05/17 09:31 Vitamins (Sjr) - PO 1 tab DAILY TERRY Administration Pseudoephedrine/Triprolidine 1 combo 05/24/17 12:52 Actifed - PO TID PRN NASAL CONGESTION Quetiapine Fumarate 200 mg 06/02/17 22:00 06/05/17 21:31 Seroquel - PO 200 mg HS TERRY Administration Thiamine HCl 100 mg 05/24/17 22:00 06/05/17 21:31 Vitamin B1 - PO 100 mg HS TERRY Administration Current Side Effect: No Lab tests ordered: No Lab tests reviewed: Yes Provider note:: [facility] Day re[facility]abilitation program in [facility], Psychiatric f/u at [facility] in the [place] [facility] - Problem List (1) Cocaine dependence, uncomplicated Current Visit: Yes (2) Bipolar disorder Current Visit: Yes Comment: Self reports. (3) History of asthma Current Visit: Yes (4) Hypertension Current Visit: Yes Qualifiers: (5) Hypothyroidism Current Visit: Yes Qualifiers: (6) Vitiligo Current Visit: Yes (7) Alcohol dependence Current Visit: Yes
[2017-06-06 09:43] VITALS: BP 159/98; PULSE 90
[2017-06-06] MEDS: ARTIFICIAL TEARS (POLYVINYL ALCOHOL 1.4%) OPTH DROPS OU PRN (09:54)
[2017-06-06] MEDS ORDERED: PT OWN MED DRAWER 7, Y5N ONE (09:54)
[2017-06-06] MEDS: cloNIDine HCL 0.1 MG TABLET PO SCH (09:55)
[2017-06-06] MEDS: amLODIPine BESYLATE 10 MG TABLET (FP) PO SCH (09:55)
[2017-06-06] MEDS: ARIPiprazole 10 MG TABLET PO SCH (09:55)
[2017-06-06] MEDS: LISINOPRIL 20 MG TABLET (FP) PO SCH (09:55)
[2017-06-06] MEDS: PRENATAL VITAMINS W/ FOLIC ACID TABLET (FP) PO SCH (09:55)
[2017-06-06] MEDS: HYDROCHLOROTHIAZIDE 25 MG TABLET (FP) PO SCH (09:55)
[2017-06-06] MEDS: NICOTINE 14 MG/24 HOURS TOPICAL PATCH TD SCH (09:56)
== END 2017-06-06 10:02 | disposition home or self-care (01) | DRG 772 ==
LOC: YASAS 10:05 → Y3E 10:06
PROVIDERS: ADMIT Psychiatry & Neurology Psychiatry; ATTEND Psychiatry & Neurology Psychiatry
PROC: HZ42ZZZ Group Counseling for Substance Abuse Treatment, Cognitive-Behavioral (ICD-10-PCS; principal; 2017-05-24)
DX: F10.20 Alcohol dependence, uncomplicated (principal); F14.20 Cocaine dependence, uncomplicated; F31.89 Other bipolar disorder; I10 Essential (primary) hypertension; E03.9 Hypothyroidism, unspecified; L80 Vitiligo; Z87.09 Personal history of other diseases of the respiratory system
CPT/HCPCS: 36415; 80164; 82140; J0735

== ENCOUNTER 2020-08-04 15:03 | Inpatient (IN) | payer OTHER ==
[2020-08-04 16:28] VITALS: BMI 23.5
[2020-08-04] MEDS ORDERED: MAGNESIUM CITRATE 300 ML BOTTLE PO PRN (19:18)
[2020-08-04] MEDS ORDERED: BISMUTH SUBSALICYLATE 524 MG/30 ML UD PO PRN (19:18)
[2020-08-04] MEDS ORDERED: MAGNESIUM HYDROX 2400MG/30ML ORAL SUSPENSION 30 ML CUP PO PRN (19:18)
[2020-08-04] MEDS ORDERED: NALOXONE (NARCAN) HCL 4 MG/0.1 ML SPRAY NS PRN (19:18)
[2020-08-04] MEDS ORDERED: ONDANSETRON *ODT* 4 MG TABLET SL PRN (19:18)
[2020-08-04] MEDS ORDERED: ACETAMINOPHEN 325 MG TABLET (FP) PO PRN ×2 (19:18)
[2020-08-04] MEDS ORDERED: IBUPROFEN 400 MG TABLET (FP) PO PRN (19:18)
[2020-08-04] MEDS ORDERED: chlordiazePOXIDE HCL 25 MG CAPSULE PO PRN (19:18)
[2020-08-04] MEDS ORDERED: MENTHOL/PHENOL 1 EACH UD MM PRN (19:18)
[2020-08-04] MEDS ORDERED: METHOCARBAMOL 500 MG TABLET PO PRN (19:18)
[2020-08-04] MEDS ORDERED: ALBUTEROL SO4 HFA INHALER IH PRN (19:27)
[2020-08-04] MEDS: HYDROCHLOROTHIAZIDE 12.5 MG CAPSULE (FP) PO SCH (21:14)
[2020-08-04] MEDS: LISINOPRIL 20 MG TABLET PO SCH (21:14)
[2020-08-04] MEDS: cloNIDine HCL 0.1 MG TABLET PO SCH (22:20)
[2020-08-04] MEDS: MELATONIN 5 MG TABLETS PO SCH (22:20)
[2020-08-04] MEDS: chlordiazePOXIDE HCL 25 MG CAPSULE PO SCH (22:21)
[2020-08-04] MEDS: hydrOXYzine PAMOATE 25 MG CAPSULE (FP) PO PRN (22:21)
[2020-08-04] MEDS: THIAMINE HCL 100 MG TABLET (FP) PO SCH (22:21)
[2020-08-04] MEDS: NICOTINE POLACRILEX 2 MG GUM BUC PRN (22:49)
[2020-08-05] MEDS ORDERED: METHADONE HCL 40 MG DISPERSABLE TABLET ONE (04:18)
[2020-08-05] MEDS ORDERED: METHADONE HCL 10 MG TABLET ONE (04:18)
[2020-08-05] MEDS: chlordiazePOXIDE HCL 25 MG CAPSULE PO SCH ×4 (05:46→22:21)
[2020-08-05] MEDS ORDERED: METHADONE 80 MG, METHADONE 20 MG PO SCH (06:00)
[2020-08-05] MEDS ORDERED: METHADONE HCL 10 MG TABLET PO ONE ×2 (06:00→10:00)
[2020-08-05] MEDS: MAG HYDROX/AL HYDROX/SIMETH 30 ML UNIT-DOSE CUP PO PRN ×2 (06:12→14:30)
[2020-08-05 10:10] LABS: ALBUMIN 3.4 g/dl (3.4-5.0); BLOOD UREA NITROGEN 14.5 mg/dL (7-18)
[2020-08-05] MEDS: NICOTINE 7 MG/24 HOURS TOPICAL PATCH TD SCH (10:11)
[2020-08-05] MEDS: PRENATAL VITAMINS W/ FOLIC ACID TABLET (FP) PO SCH (10:11)
[2020-08-05 10:12] LABS: HEMATOCRIT 33.9 % (32.4-45.2); HEMOGLOBIN 11.4 GM/dL (10.7-15.3); MCH 38.5 pg (25.7-33.7); MCHC 33.8 g/dl (32.0-36.0); MEAN PLT VOLUME 9.4 fl (7.5-11.1); PLATELET COUNT 180 K/MM3 (134-434); RBC 2.97 M/mm3 (3.60-5.2); RDW 14.7 % (11.6-15.6); WHITE BLOOD COUNT 4.9 K/mm3 (4.0-10.0)
[2020-08-05] MEDS: LISINOPRIL 20 MG TABLET PO SCH (10:12)
[2020-08-05] MEDS: HYDROCHLOROTHIAZIDE 12.5 MG CAPSULE (FP) PO SCH (10:12)
[2020-08-05] MEDS: cloNIDine HCL 0.1 MG TABLET PO SCH ×2 (10:12→22:22)
[2020-08-05 10:13] LABS: CREATININE 1.1 mg/dL (0.55-1.3)
[2020-08-05 10:15] LABS: BILIRUBIN,TOTAL 0.3 mg/dL (0.2-1); TOT PROT 7.6 g/dl (6.4-8.2)
[2020-08-05] MEDS: NICOTINE POLACRILEX 2 MG GUM BUC PRN ×2 (10:16→18:19)
[2020-08-05 10:59] LABS: SICKLE CELL SCREEN NEGATIVE (NEGATIVE)
[2020-08-05] MEDS: MELATONIN 5 MG TABLETS PO SCH (22:22)
[2020-08-05] MEDS: THIAMINE HCL 100 MG TABLET (FP) PO SCH (22:22)
[2020-08-05] MEDS: QUEtiapine FUMARATE 100 MG TABLET (FP) PO SCH (22:22)
[2020-08-06] MEDS ORDERED: METHADONE HCL 10 MG TABLET ONE (04:16)
[2020-08-06] MEDS ORDERED: METHADONE HCL 40 MG DISPERSABLE TABLET ONE (04:16)
[2020-08-06] MEDS ORDERED: METHADONE HCL 40 MG DISPERSABLE TABLET PO SCH (06:00)
[2020-08-06] MEDS ORDERED: METHADONE HCL 10 MG TABLET PO ONE (06:00)
[2020-08-06] MEDS: METHADONE 120 MG, METHADONE 10 MG PO SCH (06:12)
[2020-08-06] MEDS: chlordiazePOXIDE HCL 25 MG CAPSULE PO SCH ×4 (06:12→22:05)
[2020-08-06] MEDS: PRENATAL VITAMINS W/ FOLIC ACID TABLET (FP) PO SCH (10:39)
[2020-08-06] MEDS: NICOTINE 7 MG/24 HOURS TOPICAL PATCH TD SCH (10:39)
[2020-08-06] MEDS: HYDROCHLOROTHIAZIDE 12.5 MG CAPSULE (FP) PO SCH (10:39)
[2020-08-06] MEDS: cloNIDine HCL 0.1 MG TABLET PO SCH ×2 (10:39→22:03)
[2020-08-06] MEDS: LISINOPRIL 20 MG TABLET PO SCH (10:39)
[2020-08-06] MEDS: VENLAFAXINE HCL 37.5 MG E.R. CAPSULE PO SCH (12:50)
[2020-08-06] MEDS: MELATONIN 5 MG TABLETS PO SCH (22:03)
[2020-08-06] MEDS: QUEtiapine FUMARATE 100 MG TABLET (FP) PO SCH (22:03)
[2020-08-06] MEDS: THIAMINE HCL 100 MG TABLET (FP) PO SCH (22:03)
[2020-08-06] MEDS: DIVALPROEX SODIUM 500 MG TABLET E.C. PO SCH (22:03)
[2020-08-07] MEDS ORDERED: chlordiazePOXIDE HCL 10 MG CAPSULE PO PRN
[2020-08-07] MEDS ORDERED: METHADONE HCL 10 MG TABLET ONE (04:52)
[2020-08-07] MEDS ORDERED: METHADONE HCL 40 MG DISPERSABLE TABLET ONE (04:54)
[2020-08-07] MEDS: chlordiazePOXIDE HCL 10 MG CAPSULE PO SCH ×4 (07:05→22:35)
[2020-08-07] MEDS: METHADONE 120 MG, METHADONE 10 MG PO SCH (07:05)
[2020-08-07] MEDS: LISINOPRIL 20 MG TABLET PO SCH (10:36)
[2020-08-07] MEDS: DIVALPROEX SODIUM 500 MG TABLET E.C. PO SCH ×2 (10:36→22:35)
[2020-08-07] MEDS: PRENATAL VITAMINS W/ FOLIC ACID TABLET (FP) PO SCH (10:36)
[2020-08-07] MEDS: cloNIDine HCL 0.1 MG TABLET PO SCH ×2 (10:36→22:35)
[2020-08-07] MEDS: HYDROCHLOROTHIAZIDE 25 MG TABLET (FP) PO SCH (10:36)
[2020-08-07] MEDS: hydrOXYzine PAMOATE 25 MG CAPSULE (FP) PO PRN (10:36)
[2020-08-07] MEDS: NICOTINE 7 MG/24 HOURS TOPICAL PATCH TD SCH (10:37)
[2020-08-07] MEDS: VENLAFAXINE HCL 37.5 MG E.R. CAPSULE PO SCH (10:39)
[2020-08-07] MEDS: HYDROCHLOROTHIAZIDE 12.5 MG CAPSULE (FP) PO SCH (11:23)
[2020-08-07] MEDS: COLLOIDAL OATMEAL 1 BAR EACH TP PRN (20:32)
[2020-08-07] MEDS: MELATONIN 5 MG TABLETS PO SCH (22:34)
[2020-08-07] MEDS: QUEtiapine FUMARATE 100 MG TABLET (FP) PO SCH (22:34)
[2020-08-07] MEDS: THIAMINE HCL 100 MG TABLET (FP) PO SCH (22:35)
[2020-08-08] MEDS ORDERED: METHADONE HCL 10 MG TABLET ONE (03:49)
[2020-08-08] MEDS ORDERED: METHADONE HCL 40 MG DISPERSABLE TABLET ONE (03:50)
[2020-08-08] MEDS: chlordiazePOXIDE HCL 10 MG CAPSULE PO SCH ×2 (05:59→17:50)
[2020-08-08] MEDS: METHADONE 120 MG, METHADONE 10 MG PO SCH (06:00)
[2020-08-08] MEDS: COLLOIDAL OATMEAL 1 BAR EACH TP PRN (06:36)
[2020-08-08] MEDS: DIVALPROEX SODIUM 500 MG TABLET E.C. PO SCH ×2 (10:20→22:22)
[2020-08-08] MEDS: HYDROCHLOROTHIAZIDE 25 MG TABLET (FP) PO SCH (10:20)
[2020-08-08] MEDS: cloNIDine HCL 0.1 MG TABLET PO SCH ×2 (10:20→22:22)
[2020-08-08] MEDS: LISINOPRIL 20 MG TABLET PO SCH (10:20)
[2020-08-08] MEDS: PRENATAL VITAMINS W/ FOLIC ACID TABLET (FP) PO SCH (10:20)
[2020-08-08] MEDS: VENLAFAXINE HCL 37.5 MG E.R. CAPSULE PO SCH (10:21)
[2020-08-08] MEDS: NICOTINE 7 MG/24 HOURS TOPICAL PATCH TD SCH (10:22)
[2020-08-08] MEDS: NICOTINE POLACRILEX 2 MG GUM BUC PRN (10:23)
[2020-08-08] MEDS: MELATONIN 5 MG TABLETS PO SCH (22:22)
[2020-08-08] MEDS: THIAMINE HCL 100 MG TABLET (FP) PO SCH (22:22)
[2020-08-08] MEDS: QUEtiapine FUMARATE 100 MG TABLET (FP) PO SCH (22:22)
[2020-08-09] MEDS ORDERED: METHADONE HCL 10 MG TABLET ONE (04:05)
[2020-08-09] MEDS ORDERED: METHADONE HCL 40 MG DISPERSABLE TABLET ONE (04:06)
[2020-08-09] MEDS ORDERED: chlordiazePOXIDE HCL 10 MG CAPSULE PO ONE (05:00)
[2020-08-09] MEDS: METHADONE 120 MG, METHADONE 10 MG PO SCH (06:00)
[2020-08-09 06:06] LABS: SARS-CoV-2 NAA Not Detected (Not Detected)
[2020-08-09 09:02] VITALS: BP 132/74; PULSE 73; TEMP 98.2
[2020-08-09] MEDS: cloNIDine HCL 0.1 MG TABLET PO SCH (09:41)
[2020-08-09] MEDS: PRENATAL VITAMINS W/ FOLIC ACID TABLET (FP) PO SCH (09:41)
[2020-08-09] MEDS: LISINOPRIL 20 MG TABLET PO SCH (09:41)
[2020-08-09] MEDS: DIVALPROEX SODIUM 500 MG TABLET E.C. PO SCH (09:41)
[2020-08-09] MEDS: HYDROCHLOROTHIAZIDE 25 MG TABLET (FP) PO SCH (09:41)
[2020-08-09] MEDS: NICOTINE 7 MG/24 HOURS TOPICAL PATCH TD SCH (09:42)
[2020-08-09] MEDS: VENLAFAXINE HCL 37.5 MG E.R. CAPSULE PO SCH (09:42)
== END 2020-08-09 12:19 | disposition other institution (70) | DRG 773 ==
LOC: YASAS 15:03 → Y3N 19:42
PROVIDERS: ADMIT Allergy & Immunology; ATTEND Allergy & Immunology
PROC: HZ2ZZZZ Detoxification Services for Substance Abuse Treatment (ICD-10-PCS; principal; 2020-08-04)
DX: F10.230 Alcohol dependence with withdrawal, uncomplicated (principal); F11.20 Opioid dependence, uncomplicated; F14.20 Cocaine dependence, uncomplicated; F17.210 Nicotine dependence, cigarettes, uncomplicated; F19.24 Other psychoactive substance dependence with psychoactive substance-induced mood disorder; F31.9 Bipolar disorder, unspecified; G47.00 Insomnia, unspecified; I10 Essential (primary) hypertension; J45.909 Unspecified asthma, uncomplicated; E03.9 Hypothyroidism, unspecified; Z91.14 Patient's other noncompliance with medication regimen; Z88.0 Allergy status to penicillin; Z91.018 Allergy to other foods
CPT/HCPCS: 36415; 80053; 80164; 85027; 85660; 86593; 86780; C9803; J0735; U0003; U0005

== ENCOUNTER 2020-08-09 12:33 | Inpatient (IN) | payer OTHER ==
[2020-08-09] MEDS ORDERED: MAG HYDROX/AL HYDROX/SIMETH 30 ML UNIT-DOSE CUP PO PRN (14:41)
[2020-08-09] MEDS ORDERED: MAGNESIUM HYDROX 2400MG/30ML ORAL SUSPENSION 30 ML CUP PO PRN (14:41)
[2020-08-09] MEDS ORDERED: IBUPROFEN 400 MG TABLET (FP) PO PRN (14:41)
[2020-08-09] MEDS ORDERED: MENTHOL/PHENOL 1 EACH UD MM PRN (14:41)
[2020-08-09] MEDS ORDERED: MAGNESIUM CITRATE 300 ML BOTTLE PO PRN (14:41)
[2020-08-09] MEDS ORDERED: guaiFENesin 200 MG/10 ML 10 ML UNIT-DOSE CUPS PO PRN (14:41)
[2020-08-09] MEDS ORDERED: P-EPHED 60MG/TRIPROLIDI 2.5MG TABLET PO PRN (14:41)
[2020-08-09] MEDS ORDERED: LOPERAMIDE HCL 2 MG CAPSULE PO PRN (14:41)
[2020-08-09] MEDS ORDERED: ACETAMINOPHEN 325 MG TABLET (FP) PO PRN (14:41)
[2020-08-09] MEDS: ALBUTEROL SO4 HFA INHALER IH PRN (16:48)
[2020-08-09] MEDS ORDERED: ALBUTEROL SO4 2.5/IPRATROPIUM 0.5 INH SOL 3 ML VIAL.NEB. NEB ONE (17:11)
[2020-08-09] MEDS ORDERED: hydrOXYzine PAMOATE 25 MG CAPSULE (FP) PO SCH (18:00)
[2020-08-09] MEDS ORDERED: DIVALPROEX NA *ER* EXTEND REL 500 MG TABLET.SA (FP) PO SCH (22:00)
[2020-08-09] MEDS: cloNIDine HCL 0.1 MG TABLET PO SCH (23:02)
[2020-08-09] MEDS: DIVALPROEX SODIUM 500 MG TABLET E.C. PO SCH (23:02)
[2020-08-09] MEDS: MELATONIN 5 MG TABLETS PO SCH (23:03)
[2020-08-09] MEDS: QUEtiapine FUMARATE 100 MG TABLET (FP) PO SCH (23:03)
[2020-08-09] MEDS: THIAMINE HCL 100 MG TABLET (FP) PO SCH (23:03)
[2020-08-10] MEDS ORDERED: ALBUTEROL SO4 2.5/IPRATROPIUM 0.5 INH SOL 3 ML VIAL.NEB. NEB PRN (06:32)
[2020-08-10] MEDS ORDERED: PT OWN MED DRAWER 7, Y5N ONE (09:32)
[2020-08-10] MEDS ORDERED: NICOTINE 7 MG/24 HOURS TOPICAL PATCH TD SCH (10:00)
[2020-08-10] MEDS ORDERED: VENLAFAXINE HCL 37.5 MG TABLET PO SCH (10:00)
[2020-08-10] MEDS ORDERED: METHADONE HCL 40 MG DISPERSABLE TABLET PO SCH (10:00)
[2020-08-10] MEDS ORDERED: METHADONE HCL 40 MG DISPERSABLE TABLET ONE (10:47)
[2020-08-10] MEDS ORDERED: METHADONE HCL 10 MG TABLET ONE (10:47)
[2020-08-10] MEDS: METHADONE 120 MG, METHADONE 10 MG PO SCH (10:50)
[2020-08-10] MEDS: HYDROCHLOROTHIAZIDE 25 MG TABLET (FP) PO SCH (10:51)
[2020-08-10] MEDS: LISINOPRIL 20 MG TABLET PO SCH (10:51)
[2020-08-10] MEDS: VENLAFAXINE HCL 37.5 MG E.R. CAPSULE PO SCH (10:51)
[2020-08-10] MEDS: DIVALPROEX SODIUM 500 MG TABLET E.C. PO SCH ×2 (10:52→21:19)
[2020-08-10] MEDS: cloNIDine HCL 0.1 MG TABLET PO SCH ×2 (10:52→21:19)
[2020-08-10] MEDS: PRENATAL VITAMINS W/ FOLIC ACID TABLET (FP) PO SCH (10:56)
[2020-08-10] MEDS: predniSONE 20 MG TABLET (UD) PO SCH (11:28)
[2020-08-10 18:34] LABS: HIV INTERPRETATION NEGATIVE (NEGATIVE)
[2020-08-10] MEDS ORDERED: MASKS NR ONE (21:18)
[2020-08-10] MEDS: QUEtiapine FUMARATE 100 MG TABLET (FP) PO SCH (21:19)
[2020-08-10] MEDS: THIAMINE HCL 100 MG TABLET (FP) PO SCH (21:19)
[2020-08-10] MEDS: MELATONIN 5 MG TABLETS PO SCH (21:19)
[2020-08-11] MEDS: DIVALPROEX SODIUM 500 MG TABLET E.C. PO SCH ×3 (06:28→22:00)
[2020-08-11] MEDS ORDERED: METHADONE HCL 40 MG DISPERSABLE TABLET ONE (09:26)
[2020-08-11] MEDS ORDERED: METHADONE HCL 10 MG TABLET ONE (09:26)
[2020-08-11] MEDS ORDERED: PT OWN MED DRAWER 7, Y5N ONE ×2 (09:28→14:10)
[2020-08-11] MEDS: PRENATAL VITAMINS W/ FOLIC ACID TABLET (FP) PO SCH (10:28)
[2020-08-11] MEDS: predniSONE 20 MG TABLET (UD) PO SCH (10:30)
[2020-08-11] MEDS: LISINOPRIL 20 MG TABLET PO SCH (10:30)
[2020-08-11] MEDS: VENLAFAXINE HCL 37.5 MG E.R. CAPSULE PO SCH (10:30)
[2020-08-11] MEDS: HYDROCHLOROTHIAZIDE 25 MG TABLET (FP) PO SCH (10:30)
[2020-08-11] MEDS: cloNIDine HCL 0.1 MG TABLET PO SCH ×2 (10:31→22:00)
[2020-08-11] MEDS: ALBUTEROL SO4 HFA INHALER IH PRN ×2 (10:33→18:18)
[2020-08-11] MEDS: METHADONE 120 MG, METHADONE 10 MG PO SCH (10:36)
[2020-08-11] MEDS: MELATONIN 5 MG TABLETS PO SCH (22:00)
[2020-08-11] MEDS: QUEtiapine FUMARATE 100 MG TABLET (FP) PO SCH (22:00)
[2020-08-11] MEDS: THIAMINE HCL 100 MG TABLET (FP) PO SCH (22:00)
[2020-08-12] MEDS: hydrOXYzine PAMOATE 25 MG CAPSULE (FP) PO PRN (05:45)
[2020-08-12] MEDS: ALBUTEROL SO4 HFA INHALER IH PRN ×2 (05:46→16:22)
[2020-08-12] MEDS: DIVALPROEX SODIUM 500 MG TABLET E.C. PO SCH ×3 (06:50→21:08)
[2020-08-12] MEDS ORDERED: METHADONE HCL 10 MG TABLET ONE (08:53)
[2020-08-12] MEDS ORDERED: METHADONE HCL 40 MG DISPERSABLE TABLET ONE (08:54)
[2020-08-12] MEDS ORDERED: PT OWN MED DRAWER 7, Y5N ONE (08:57)
[2020-08-12] MEDS: HYDROCHLOROTHIAZIDE 25 MG TABLET (FP) PO SCH (10:02)
[2020-08-12] MEDS: LISINOPRIL 20 MG TABLET PO SCH (10:02)
[2020-08-12] MEDS: METHADONE 120 MG, METHADONE 10 MG PO SCH (10:02)
[2020-08-12] MEDS: VENLAFAXINE HCL 37.5 MG E.R. CAPSULE PO SCH (10:02)
[2020-08-12] MEDS: predniSONE 20 MG TABLET (UD) PO SCH (10:03)
[2020-08-12] MEDS: PRENATAL VITAMINS W/ FOLIC ACID TABLET (FP) PO SCH (10:03)
[2020-08-12] MEDS: cloNIDine HCL 0.1 MG TABLET PO SCH ×2 (10:03→21:08)
[2020-08-12] MEDS: NICOTINE POLACRILEX 2 MG GUM BUC PRN ×2 (19:21→21:52)
[2020-08-12] MEDS: QUEtiapine FUMARATE 100 MG TABLET (FP) PO SCH (21:08)
[2020-08-12] MEDS: MELATONIN 5 MG TABLETS PO SCH (21:08)
[2020-08-12] MEDS: THIAMINE HCL 100 MG TABLET (FP) PO SCH (21:08)
[2020-08-12] MEDS: FLUOCINONIDE 0.05% CREAM (15 GM TUBE) TP SCH (21:50)
[2020-08-13] MEDS: DIVALPROEX SODIUM 500 MG TABLET E.C. PO SCH ×3 (06:24→21:00)
[2020-08-13] MEDS: ALBUTEROL SO4 HFA INHALER IH PRN ×2 (06:24→21:00)
[2020-08-13] MEDS: NICOTINE POLACRILEX 2 MG GUM BUC PRN ×3 (06:25→13:38)
[2020-08-13] MEDS ORDERED: METHADONE HCL 10 MG TABLET ONE (08:53)
[2020-08-13] MEDS ORDERED: METHADONE HCL 40 MG DISPERSABLE TABLET ONE (08:54)
[2020-08-13] MEDS ORDERED: PT OWN MED DRAWER 7, Y5N ONE (08:55)
[2020-08-13] MEDS: PRENATAL VITAMINS W/ FOLIC ACID TABLET (FP) PO SCH (10:08)
[2020-08-13] MEDS: FLUOCINONIDE 0.05% CREAM (15 GM TUBE) TP SCH ×2 (10:09→21:01)
[2020-08-13] MEDS: METHADONE 120 MG, METHADONE 10 MG PO SCH (10:09)
[2020-08-13] MEDS: LISINOPRIL 20 MG TABLET PO SCH (10:10)
[2020-08-13] MEDS: VENLAFAXINE HCL 37.5 MG E.R. CAPSULE PO SCH (10:10)
[2020-08-13] MEDS: cloNIDine HCL 0.1 MG TABLET PO SCH ×2 (10:10→21:01)
[2020-08-13] MEDS: HYDROCHLOROTHIAZIDE 25 MG TABLET (FP) PO SCH (10:11)
[2020-08-13] MEDS: predniSONE 20 MG TABLET (UD) PO SCH (10:11)
[2020-08-13 14:07] LABS: SARS-CoV-2 NAA Not Detected (Not Detected)
[2020-08-13] MEDS: THIAMINE HCL 100 MG TABLET (FP) PO SCH (21:01)
[2020-08-13] MEDS: MELATONIN 5 MG TABLETS PO SCH (21:01)
[2020-08-13] MEDS: QUEtiapine FUMARATE 100 MG TABLET (FP) PO SCH (21:01)
[2020-08-14] MEDS: DIVALPROEX SODIUM 500 MG TABLET E.C. PO SCH ×3 (06:21→21:43)
[2020-08-14] MEDS: hydrOXYzine PAMOATE 25 MG CAPSULE (FP) PO PRN (06:58)
[2020-08-14] MEDS ORDERED: METHADONE HCL 10 MG TABLET ONE (08:49)
[2020-08-14] MEDS ORDERED: METHADONE HCL 40 MG DISPERSABLE TABLET ONE (08:49)
[2020-08-14] MEDS ORDERED: cloNIDine HCL 0.1 MG TABLET PO SCH (09:58)
[2020-08-14] MEDS ORDERED: cloNIDine HCL 0.1 MG TABLET PO ONE (09:59)
[2020-08-14] MEDS ORDERED: ALBUTEROL SO4 2.5/IPRATROPIUM 0.5 INH SOL 3 ML VIAL.NEB. NEB PRN (10:02)
[2020-08-14] MEDS ORDERED: METHADONE HCL 10 MG TABLET PO ONE (10:06)
[2020-08-14] MEDS ORDERED: METHADONE 120 MG, METHADONE 10 MG PO ONE (10:20)
[2020-08-14] MEDS: HYDROCHLOROTHIAZIDE 25 MG TABLET (FP) PO SCH (10:39)
[2020-08-14] MEDS: PRENATAL VITAMINS W/ FOLIC ACID TABLET (FP) PO SCH (10:39)
[2020-08-14] MEDS: FLUOCINONIDE 0.05% CREAM (15 GM TUBE) TP SCH ×2 (10:41→22:47)
[2020-08-14] MEDS: LISINOPRIL 20 MG TABLET PO SCH (10:42)
[2020-08-14] MEDS: NICOTINE POLACRILEX 2 MG GUM BUC PRN ×3 (10:42→21:44)
[2020-08-14] MEDS ORDERED: PT OWN MED DRAWER 7, Y5N ONE ×2 (10:48→22:46)
[2020-08-14] MEDS: METHADONE 120 MG, METHADONE 10 MG PO SCH (11:10)
[2020-08-14] MEDS: VENLAFAXINE HCL 37.5 MG E.R. CAPSULE PO SCH (13:11)
[2020-08-14] MEDS: MELATONIN 5 MG TABLETS PO SCH (21:42)
[2020-08-14] MEDS: THIAMINE HCL 100 MG TABLET (FP) PO SCH (21:43)
[2020-08-14] MEDS: cloNIDine HCL 0.1 MG TABLET PO SCH (21:43)
[2020-08-14] MEDS: QUEtiapine FUMARATE 100 MG TABLET (FP) PO SCH (21:43)
[2020-08-15] MEDS ORDERED: METHADONE HCL 10 MG TABLET ONE (06:14)
[2020-08-15] MEDS ORDERED: METHADONE HCL 40 MG DISPERSABLE TABLET ONE (06:14)
[2020-08-15] MEDS: DIVALPROEX SODIUM 500 MG TABLET E.C. PO SCH ×3 (06:14→21:45)
[2020-08-15] MEDS: METHADONE 120 MG, METHADONE 10 MG PO SCH (06:15)
[2020-08-15] MEDS: PRENATAL VITAMINS W/ FOLIC ACID TABLET (FP) PO SCH (10:13)
[2020-08-15] MEDS: HYDROCHLOROTHIAZIDE 25 MG TABLET (FP) PO SCH (10:14)
[2020-08-15] MEDS: cloNIDine HCL 0.1 MG TABLET PO SCH ×2 (10:14→21:45)
[2020-08-15] MEDS: VENLAFAXINE HCL 37.5 MG E.R. CAPSULE PO SCH (10:14)
[2020-08-15] MEDS: LISINOPRIL 20 MG TABLET PO SCH (10:14)
[2020-08-15] MEDS: FLUOCINONIDE 0.05% CREAM (15 GM TUBE) TP SCH ×2 (10:15→22:07)
[2020-08-15] MEDS: NICOTINE POLACRILEX 2 MG GUM BUC PRN (10:17)
[2020-08-15] MEDS: ALBUTEROL SO4 HFA INHALER IH PRN (10:18)
[2020-08-15] MEDS: TOLNAFTATE 1% POWDER 45 GM POW TP SCH ×2 (15:26→22:07)
[2020-08-15] MEDS: SIMETHICONE 80 MG TAB.CHEW (FP) PO PRN ×2 (15:28→23:08)
[2020-08-15] MEDS: MELATONIN 5 MG TABLETS PO SCH (21:44)
[2020-08-15] MEDS: QUEtiapine FUMARATE 100 MG TABLET (FP) PO SCH (21:45)
[2020-08-15] MEDS: THIAMINE HCL 100 MG TABLET (FP) PO SCH (21:45)
[2020-08-15] MEDS: BUDESONIDE/FORMETEROL FUMARATE 80/4.5 mcg INHALER IH SCH (21:48)
[2020-08-15] MEDS ORDERED: PT OWN MED DRAWER 7, Y5N ONE (23:07)
[2020-08-16] MEDS ORDERED: METHADONE HCL 10 MG TABLET ONE (03:45)
[2020-08-16] MEDS ORDERED: METHADONE HCL 40 MG DISPERSABLE TABLET ONE (03:45)
[2020-08-16] MEDS: METHADONE 120 MG, METHADONE 10 MG PO SCH (06:31)
[2020-08-16] MEDS: DIVALPROEX SODIUM 500 MG TABLET E.C. PO SCH ×3 (06:32→21:19)
[2020-08-16] MEDS: cloNIDine HCL 0.1 MG TABLET PO SCH ×2 (09:34→21:19)
[2020-08-16] MEDS: BUDESONIDE/FORMETEROL FUMARATE 80/4.5 mcg INHALER IH SCH ×2 (09:34→21:23)
[2020-08-16] MEDS: HYDROCHLOROTHIAZIDE 25 MG TABLET (FP) PO SCH (09:34)
[2020-08-16] MEDS: LISINOPRIL 20 MG TABLET PO SCH (09:34)
[2020-08-16] MEDS: PRENATAL VITAMINS W/ FOLIC ACID TABLET (FP) PO SCH (09:34)
[2020-08-16] MEDS: VENLAFAXINE HCL 37.5 MG E.R. CAPSULE PO SCH (09:34)
[2020-08-16] MEDS: TOLNAFTATE 1% POWDER 45 GM POW TP SCH ×2 (09:36→21:21)
[2020-08-16] MEDS: FLUOCINONIDE 0.05% CREAM (15 GM TUBE) TP SCH ×2 (09:36→21:21)
[2020-08-16] MEDS: SIMETHICONE 80 MG TAB.CHEW (FP) PO PRN (09:36)
[2020-08-16] MEDS: NICOTINE POLACRILEX 2 MG GUM BUC PRN ×2 (09:37→21:23)
[2020-08-16] MEDS: QUEtiapine FUMARATE 100 MG TABLET (FP) PO SCH (21:19)
[2020-08-16] MEDS: THIAMINE HCL 100 MG TABLET (FP) PO SCH (21:19)
[2020-08-16] MEDS: MELATONIN 5 MG TABLETS PO SCH (21:21)
[2020-08-17] MEDS ORDERED: METHADONE HCL 10 MG TABLET ONE (05:19)
[2020-08-17] MEDS ORDERED: METHADONE HCL 40 MG DISPERSABLE TABLET ONE (05:20)
[2020-08-17] MEDS: DIVALPROEX SODIUM 500 MG TABLET E.C. PO SCH ×3 (06:15→21:51)
[2020-08-17] MEDS: METHADONE 120 MG, METHADONE 10 MG PO SCH (06:16)
[2020-08-17] MEDS: HYDROCHLOROTHIAZIDE 25 MG TABLET (FP) PO SCH (10:25)
[2020-08-17] MEDS: FLUOCINONIDE 0.05% CREAM (15 GM TUBE) TP SCH ×2 (10:25→22:07)
[2020-08-17] MEDS: cloNIDine HCL 0.1 MG TABLET PO SCH (10:25)
[2020-08-17] MEDS: VENLAFAXINE HCL 37.5 MG E.R. CAPSULE PO SCH (10:25)
[2020-08-17] MEDS: BUDESONIDE/FORMETEROL FUMARATE 80/4.5 mcg INHALER IH SCH ×2 (10:25→21:51)
[2020-08-17] MEDS: TOLNAFTATE 1% POWDER 45 GM POW TP SCH ×2 (10:25→22:23)
[2020-08-17] MEDS: LISINOPRIL 20 MG TABLET PO SCH (10:25)
[2020-08-17] MEDS: PRENATAL VITAMINS W/ FOLIC ACID TABLET (FP) PO SCH (10:26)
[2020-08-17] MEDS: SIMETHICONE 80 MG TAB.CHEW (FP) PO PRN (10:27)
[2020-08-17] MEDS: NICOTINE POLACRILEX 2 MG GUM BUC PRN ×2 (10:28→21:55)
[2020-08-17] MEDS: ALBUTEROL SO4 HFA INHALER IH PRN (10:28)
[2020-08-17] MEDS: hydrOXYzine PAMOATE 25 MG CAPSULE (FP) PO PRN (21:51)
[2020-08-17] MEDS: THIAMINE HCL 100 MG TABLET (FP) PO SCH (21:52)
[2020-08-17] MEDS: QUEtiapine FUMARATE 100 MG TABLET (FP) PO SCH (21:52)
[2020-08-17] MEDS: MELATONIN 5 MG TABLETS PO SCH (21:52)
[2020-08-18] MEDS ORDERED: METHADONE HCL 40 MG DISPERSABLE TABLET ONE (03:27)
[2020-08-18] MEDS ORDERED: METHADONE HCL 10 MG TABLET ONE (03:27)
[2020-08-18] MEDS: METHADONE 120 MG, METHADONE 10 MG PO SCH (06:24)
[2020-08-18] MEDS: DIVALPROEX SODIUM 500 MG TABLET E.C. PO SCH ×3 (06:25→21:34)
[2020-08-18] MEDS: NICOTINE POLACRILEX 2 MG GUM BUC PRN ×3 (06:27→21:38)
[2020-08-18] MEDS: PRENATAL VITAMINS W/ FOLIC ACID TABLET (FP) PO SCH (10:27)
[2020-08-18] MEDS: HYDROCHLOROTHIAZIDE 25 MG TABLET (FP) PO SCH (10:28)
[2020-08-18] MEDS: LISINOPRIL 20 MG TABLET PO SCH (10:28)
[2020-08-18] MEDS: BUDESONIDE/FORMETEROL FUMARATE 80/4.5 mcg INHALER IH SCH ×2 (10:28→21:35)
[2020-08-18] MEDS: TOLNAFTATE 1% POWDER 45 GM POW TP SCH ×2 (10:28→21:35)
[2020-08-18] MEDS: VENLAFAXINE HCL 37.5 MG E.R. CAPSULE PO SCH (10:29)
[2020-08-18] MEDS: FLUOCINONIDE 0.05% CREAM (15 GM TUBE) TP SCH ×2 (10:30→21:34)
[2020-08-18] MEDS ORDERED: ALBUTEROL SO4 2.5/IPRATROPIUM 0.5 INH SOL 3 ML VIAL.NEB. NEB PRN (13:22)
[2020-08-18] MEDS: ALBUTEROL SO4 HFA INHALER IH PRN (16:15)
[2020-08-18] MEDS ORDERED: PT OWN MED DRAWER 7, Y5N ONE ×3 (16:15→21:36)
[2020-08-18] MEDS: MELATONIN 5 MG TABLETS PO SCH (21:34)
[2020-08-18] MEDS: QUEtiapine FUMARATE 100 MG TABLET (FP) PO SCH (21:35)
[2020-08-18] MEDS: SIMETHICONE 80 MG TAB.CHEW (FP) PO PRN (21:36)
[2020-08-18] MEDS: THIAMINE HCL 100 MG TABLET (FP) PO SCH (21:48)
[2020-08-19] MEDS ORDERED: METHADONE HCL 10 MG TABLET ONE (05:28)
[2020-08-19] MEDS ORDERED: METHADONE HCL 40 MG DISPERSABLE TABLET ONE (05:28)
[2020-08-19] MEDS: METHADONE 120 MG, METHADONE 10 MG PO SCH (05:53)
[2020-08-19] MEDS: DIVALPROEX SODIUM 500 MG TABLET E.C. PO SCH ×3 (05:53→21:11)
[2020-08-19] MEDS: cloNIDine HCL 0.1 MG TABLET PO PRN (05:56)
[2020-08-19] MEDS: VENLAFAXINE HCL 37.5 MG E.R. CAPSULE PO SCH (10:36)
[2020-08-19] MEDS: TOLNAFTATE 1% POWDER 45 GM POW TP SCH ×2 (10:36→21:13)
[2020-08-19] MEDS: PRENATAL VITAMINS W/ FOLIC ACID TABLET (FP) PO SCH (10:36)
[2020-08-19] MEDS: BUDESONIDE/FORMETEROL FUMARATE 80/4.5 mcg INHALER IH SCH ×2 (10:36→21:11)
[2020-08-19] MEDS: LISINOPRIL 20 MG TABLET PO SCH (10:36)
[2020-08-19] MEDS: HYDROCHLOROTHIAZIDE 25 MG TABLET (FP) PO SCH (10:37)
[2020-08-19] MEDS: SIMETHICONE 80 MG TAB.CHEW (FP) PO PRN (10:38)
[2020-08-19] MEDS: NICOTINE POLACRILEX 2 MG GUM BUC PRN ×2 (10:38→21:53)
[2020-08-19] MEDS: FLUOCINONIDE 0.05% CREAM (15 GM TUBE) TP SCH ×2 (10:39→21:12)
[2020-08-19] MEDS: THIAMINE HCL 100 MG TABLET (FP) PO SCH (21:11)
[2020-08-19] MEDS: QUEtiapine FUMARATE 100 MG TABLET (FP) PO SCH (21:11)
[2020-08-19] MEDS: hydrOXYzine PAMOATE 25 MG CAPSULE (FP) PO PRN (21:11)
[2020-08-19] MEDS: MELATONIN 5 MG TABLETS PO SCH (21:11)
[2020-08-20] MEDS ORDERED: METHADONE HCL 10 MG TABLET ONE (06:11)
[2020-08-20] MEDS ORDERED: METHADONE HCL 40 MG DISPERSABLE TABLET ONE (06:11)
[2020-08-20] MEDS: DIVALPROEX SODIUM 500 MG TABLET E.C. PO SCH ×3 (06:12→22:12)
[2020-08-20] MEDS: METHADONE 120 MG, METHADONE 10 MG PO SCH (06:12)
[2020-08-20] MEDS: BUDESONIDE/FORMETEROL FUMARATE 80/4.5 mcg INHALER IH SCH ×2 (10:47→22:14)
[2020-08-20] MEDS: HYDROCHLOROTHIAZIDE 25 MG TABLET (FP) PO SCH (10:48)
[2020-08-20] MEDS: PRENATAL VITAMINS W/ FOLIC ACID TABLET (FP) PO SCH (10:48)
[2020-08-20] MEDS: TOLNAFTATE 1% POWDER 45 GM POW TP SCH ×2 (10:48→22:14)
[2020-08-20] MEDS: VENLAFAXINE HCL 37.5 MG E.R. CAPSULE PO SCH (10:48)
[2020-08-20] MEDS: LISINOPRIL 20 MG TABLET PO SCH (10:48)
[2020-08-20] MEDS: FLUOCINONIDE 0.05% CREAM (15 GM TUBE) TP SCH ×2 (10:50→22:13)
[2020-08-20] MEDS: NICOTINE POLACRILEX 2 MG GUM BUC PRN ×2 (10:50→14:01)
[2020-08-20] MEDS: QUEtiapine FUMARATE 100 MG TABLET (FP) PO SCH (22:12)
[2020-08-20] MEDS: MELATONIN 5 MG TABLETS PO SCH (22:12)
[2020-08-20] MEDS: THIAMINE HCL 100 MG TABLET (FP) PO SCH (22:12)
[2020-08-21] MEDS ORDERED: METHADONE HCL 10 MG TABLET ONE (03:33)
[2020-08-21] MEDS ORDERED: METHADONE HCL 40 MG DISPERSABLE TABLET ONE (03:33)
[2020-08-21] MEDS: METHADONE 120 MG, METHADONE 10 MG PO SCH (05:50)
[2020-08-21] MEDS: DIVALPROEX SODIUM 500 MG TABLET E.C. PO SCH ×3 (05:53→21:09)
[2020-08-21] MEDS: NICOTINE POLACRILEX 2 MG GUM BUC PRN ×3 (07:39→21:10)
[2020-08-21] MEDS: HYDROCHLOROTHIAZIDE 25 MG TABLET (FP) PO SCH (10:15)
[2020-08-21] MEDS: LISINOPRIL 20 MG TABLET PO SCH (10:15)
[2020-08-21] MEDS: BUDESONIDE/FORMETEROL FUMARATE 80/4.5 mcg INHALER IH SCH ×2 (10:15→21:09)
[2020-08-21] MEDS: PRENATAL VITAMINS W/ FOLIC ACID TABLET (FP) PO SCH (10:15)
[2020-08-21] MEDS: VENLAFAXINE HCL 37.5 MG E.R. CAPSULE PO SCH (10:16)
[2020-08-21] MEDS: TOLNAFTATE 1% POWDER 45 GM POW TP SCH ×2 (10:16→21:13)
[2020-08-21] MEDS: SIMETHICONE 80 MG TAB.CHEW (FP) PO PRN ×2 (10:17→21:10)
[2020-08-21] MEDS: FLUOCINONIDE 0.05% CREAM (15 GM TUBE) TP SCH ×2 (10:18→21:13)
[2020-08-21] MEDS ORDERED: DOXYCYCLINE HYCLATE 100 MG TABLET PO ONE (11:03)
[2020-08-21] MEDS: DOXYCYCLINE HYCLATE 100 MG TABLET PO SCH (17:26)
[2020-08-21] MEDS ORDERED: PT OWN MED DRAWER 7, Y5N ONE ×2 (20:06→21:14)
[2020-08-21] MEDS: QUEtiapine FUMARATE 100 MG TABLET (FP) PO SCH (21:09)
[2020-08-21] MEDS: hydrOXYzine PAMOATE 25 MG CAPSULE (FP) PO PRN (21:09)
[2020-08-21] MEDS: THIAMINE HCL 100 MG TABLET (FP) PO SCH (21:09)
[2020-08-21] MEDS: MELATONIN 5 MG TABLETS PO SCH (21:10)
[2020-08-21] MEDS: cloNIDine HCL 0.1 MG TABLET PO PRN (23:17)
[2020-08-22] MEDS ORDERED: METHADONE HCL 10 MG TABLET ONE (06:14)
[2020-08-22] MEDS ORDERED: METHADONE HCL 40 MG DISPERSABLE TABLET ONE (06:14)
[2020-08-22] MEDS: DIVALPROEX SODIUM 500 MG TABLET E.C. PO SCH ×3 (06:15→21:53)
[2020-08-22] MEDS: METHADONE 120 MG, METHADONE 10 MG PO SCH (06:15)
[2020-08-22] MEDS: NICOTINE POLACRILEX 2 MG GUM BUC PRN ×4 (06:17→21:57)
[2020-08-22] MEDS: PRENATAL VITAMINS W/ FOLIC ACID TABLET (FP) PO SCH (10:17)
[2020-08-22] MEDS: BUDESONIDE/FORMETEROL FUMARATE 80/4.5 mcg INHALER IH SCH ×2 (10:17→21:56)
[2020-08-22] MEDS: DOXYCYCLINE HYCLATE 100 MG TABLET PO SCH ×2 (10:18→17:30)
[2020-08-22] MEDS: HYDROCHLOROTHIAZIDE 25 MG TABLET (FP) PO SCH (10:18)
[2020-08-22] MEDS: LISINOPRIL 20 MG TABLET PO SCH (10:18)
[2020-08-22] MEDS: VENLAFAXINE HCL 37.5 MG E.R. CAPSULE PO SCH (10:18)
[2020-08-22] MEDS: FLUOCINONIDE 0.05% CREAM (15 GM TUBE) TP SCH ×2 (10:19→21:57)
[2020-08-22] MEDS: TOLNAFTATE 1% POWDER 45 GM POW TP SCH ×2 (10:19→21:57)
[2020-08-22] MEDS ORDERED: COLLOIDAL OATMEAL 1 BAR EACH TP PRN (15:44)
[2020-08-22] MEDS ORDERED: PT OWN MED DRAWER 7, Y5N ONE ×2 (16:28→21:52)
[2020-08-22] MEDS: MINERAL OIL/PETROLAT/WATER TOPICAL CREAM 113 GM JAR TP SCH (17:30)
[2020-08-22] MEDS: MELATONIN 5 MG TABLETS PO SCH (21:53)
[2020-08-22] MEDS: THIAMINE HCL 100 MG TABLET (FP) PO SCH (21:54)
[2020-08-22] MEDS: QUEtiapine FUMARATE 100 MG TABLET (FP) PO SCH (21:54)
[2020-08-22] MEDS: cloNIDine HCL 0.1 MG TABLET PO PRN (21:55)
[2020-08-22] MEDS: SIMETHICONE 80 MG TAB.CHEW (FP) PO PRN (21:57)
[2020-08-23] MEDS ORDERED: METHADONE HCL 10 MG TABLET ONE (05:50)
[2020-08-23] MEDS ORDERED: METHADONE HCL 40 MG DISPERSABLE TABLET ONE (05:50)
[2020-08-23] MEDS: DIVALPROEX SODIUM 500 MG TABLET E.C. PO SCH ×3 (06:33→22:56)
[2020-08-23] MEDS: METHADONE 120 MG, METHADONE 10 MG PO SCH (06:33)
[2020-08-23] MEDS: SIMETHICONE 80 MG TAB.CHEW (FP) PO PRN (10:20)
[2020-08-23] MEDS: HYDROCHLOROTHIAZIDE 25 MG TABLET (FP) PO SCH (10:21)
[2020-08-23] MEDS: LISINOPRIL 20 MG TABLET PO SCH (10:21)
[2020-08-23] MEDS: VENLAFAXINE HCL 37.5 MG E.R. CAPSULE PO SCH (10:21)
[2020-08-23] MEDS: PRENATAL VITAMINS W/ FOLIC ACID TABLET (FP) PO SCH (10:21)
[2020-08-23] MEDS: BUDESONIDE/FORMETEROL FUMARATE 80/4.5 mcg INHALER IH SCH ×2 (10:21→21:11)
[2020-08-23] MEDS: MINERAL OIL/PETROLAT/WATER TOPICAL CREAM 113 GM JAR TP SCH (10:22)
[2020-08-23] MEDS: DOXYCYCLINE HYCLATE 100 MG TABLET PO SCH ×2 (10:22→17:06)
[2020-08-23] MEDS: TOLNAFTATE 1% POWDER 45 GM POW TP SCH ×2 (10:23→21:11)
[2020-08-23] MEDS: FLUOCINONIDE 0.05% CREAM (15 GM TUBE) TP SCH ×2 (10:23→21:12)
[2020-08-23] MEDS: NICOTINE POLACRILEX 2 MG GUM BUC PRN ×2 (10:24→21:12)
[2020-08-23] MEDS ORDERED: PT OWN MED DRAWER 7, Y5N ONE (16:51)
[2020-08-23] MEDS: THIAMINE HCL 100 MG TABLET (FP) PO SCH (21:11)
[2020-08-23] MEDS: hydrOXYzine PAMOATE 25 MG CAPSULE (FP) PO PRN (21:11)
[2020-08-23] MEDS: cloNIDine HCL 0.1 MG TABLET PO PRN (21:11)
[2020-08-23] MEDS: QUEtiapine FUMARATE 100 MG TABLET (FP) PO SCH (21:11)
[2020-08-23] MEDS: MELATONIN 5 MG TABLETS PO SCH (22:56)
[2020-08-24] MEDS ORDERED: METHADONE HCL 40 MG DISPERSABLE TABLET ONE (03:29)
[2020-08-24] MEDS ORDERED: METHADONE HCL 10 MG TABLET ONE (03:29)
[2020-08-24] MEDS: METHADONE 120 MG, METHADONE 10 MG PO SCH (06:13)
[2020-08-24] MEDS: LISINOPRIL 20 MG TABLET PO SCH (10:42)
[2020-08-24] MEDS: PRENATAL VITAMINS W/ FOLIC ACID TABLET (FP) PO SCH (10:42)
[2020-08-24] MEDS: DIVALPROEX SODIUM 500 MG TABLET E.C. PO SCH ×2 (10:42→22:04)
[2020-08-24] MEDS: HYDROCHLOROTHIAZIDE 25 MG TABLET (FP) PO SCH (10:42)
[2020-08-24] MEDS: DOXYCYCLINE HYCLATE 100 MG TABLET PO SCH ×2 (10:43→17:42)
[2020-08-24] MEDS: BUDESONIDE/FORMETEROL FUMARATE 80/4.5 mcg INHALER IH SCH ×2 (10:43→22:03)
[2020-08-24] MEDS: VENLAFAXINE HCL 37.5 MG E.R. CAPSULE PO SCH (10:43)
[2020-08-24] MEDS: FLUOCINONIDE 0.05% CREAM (15 GM TUBE) TP SCH ×2 (10:43→22:05)
[2020-08-24] MEDS: SIMETHICONE 80 MG TAB.CHEW (FP) PO PRN (10:45)
[2020-08-24] MEDS: TOLNAFTATE 1% POWDER 45 GM POW TP SCH ×2 (10:45→22:04)
[2020-08-24] MEDS: NICOTINE POLACRILEX 2 MG GUM BUC PRN (10:46)
[2020-08-24] MEDS: MINERAL OIL/PETROLAT/WATER TOPICAL CREAM 113 GM JAR TP SCH (11:14)
[2020-08-24] MEDS: QUEtiapine FUMARATE 100 MG TABLET (FP) PO SCH (22:04)
[2020-08-24] MEDS: cloNIDine HCL 0.1 MG TABLET PO PRN (22:04)
[2020-08-24] MEDS: MELATONIN 5 MG TABLETS PO SCH (22:04)
[2020-08-24] MEDS: THIAMINE HCL 100 MG TABLET (FP) PO SCH (22:04)
[2020-08-25] MEDS ORDERED: METHADONE HCL 10 MG TABLET ONE (03:29)
[2020-08-25] MEDS ORDERED: METHADONE HCL 40 MG DISPERSABLE TABLET ONE (03:30)
[2020-08-25] MEDS: METHADONE 120 MG, METHADONE 10 MG PO SCH (05:54)
[2020-08-25] MEDS: DIVALPROEX SODIUM 500 MG TABLET E.C. PO SCH ×2 (10:46→22:38)
[2020-08-25] MEDS: HYDROCHLOROTHIAZIDE 25 MG TABLET (FP) PO SCH (10:47)
[2020-08-25] MEDS: LISINOPRIL 20 MG TABLET PO SCH (10:47)
[2020-08-25] MEDS: PRENATAL VITAMINS W/ FOLIC ACID TABLET (FP) PO SCH (10:48)
[2020-08-25] MEDS: SIMETHICONE 80 MG TAB.CHEW (FP) PO PRN (10:48)
[2020-08-25] MEDS: VENLAFAXINE HCL 37.5 MG E.R. CAPSULE PO SCH (10:48)
[2020-08-25] MEDS: DOXYCYCLINE HYCLATE 100 MG TABLET PO SCH ×2 (10:49→17:23)
[2020-08-25] MEDS: FLUOCINONIDE 0.05% CREAM (15 GM TUBE) TP SCH ×2 (10:49→22:38)
[2020-08-25] MEDS: TOLNAFTATE 1% POWDER 45 GM POW TP SCH ×2 (10:49→22:39)
[2020-08-25] MEDS: BUDESONIDE/FORMETEROL FUMARATE 80/4.5 mcg INHALER IH SCH ×2 (10:49→22:37)
[2020-08-25] MEDS: MINERAL OIL/PETROLAT/WATER TOPICAL CREAM 113 GM JAR TP SCH (10:50)
[2020-08-25] MEDS: NICOTINE POLACRILEX 2 MG GUM BUC PRN ×2 (10:51→22:41)
[2020-08-25] MEDS ORDERED: PT OWN MED DRAWER 7, Y5N ONE ×3 (16:49→21:05)
[2020-08-25] MEDS: hydrOXYzine PAMOATE 25 MG CAPSULE (FP) PO PRN (22:38)
[2020-08-25] MEDS: QUEtiapine FUMARATE 100 MG TABLET (FP) PO SCH (22:38)
[2020-08-25] MEDS: THIAMINE HCL 100 MG TABLET (FP) PO SCH (22:38)
[2020-08-25] MEDS: MELATONIN 5 MG TABLETS PO SCH (22:38)
[2020-08-25] MEDS: cloNIDine HCL 0.1 MG TABLET PO PRN (22:38)
[2020-08-26] MEDS ORDERED: METHADONE HCL 10 MG TABLET ONE (05:11)
[2020-08-26] MEDS ORDERED: METHADONE HCL 40 MG DISPERSABLE TABLET ONE (05:12)
[2020-08-26] MEDS: METHADONE 120 MG, METHADONE 10 MG PO SCH (06:07)
[2020-08-26] MEDS: HYDROCHLOROTHIAZIDE 25 MG TABLET (FP) PO SCH (10:44)
[2020-08-26] MEDS: LISINOPRIL 20 MG TABLET PO SCH (10:44)
[2020-08-26] MEDS: BUDESONIDE/FORMETEROL FUMARATE 80/4.5 mcg INHALER IH SCH ×2 (10:44→21:22)
[2020-08-26] MEDS: DIVALPROEX SODIUM 500 MG TABLET E.C. PO SCH ×2 (10:44→21:21)
[2020-08-26] MEDS: VENLAFAXINE HCL 37.5 MG E.R. CAPSULE PO SCH (10:45)
[2020-08-26] MEDS: PRENATAL VITAMINS W/ FOLIC ACID TABLET (FP) PO SCH (10:46)
[2020-08-26] MEDS: DOXYCYCLINE HYCLATE 100 MG TABLET PO SCH ×2 (10:46→18:06)
[2020-08-26] MEDS: FLUOCINONIDE 0.05% CREAM (15 GM TUBE) TP SCH ×2 (10:46→21:23)
[2020-08-26] MEDS: MINERAL OIL/PETROLAT/WATER TOPICAL CREAM 113 GM JAR TP SCH (10:46)
[2020-08-26] MEDS: NICOTINE POLACRILEX 2 MG GUM BUC PRN ×3 (10:47→21:24)
[2020-08-26] MEDS: TOLNAFTATE 1% POWDER 45 GM POW TP SCH ×2 (10:47→21:23)
[2020-08-26] MEDS: SIMETHICONE 80 MG TAB.CHEW (FP) PO PRN (10:47)
[2020-08-26] MEDS ORDERED: PT OWN MED DRAWER 7, Y5N ONE ×2 (17:42→20:50)
[2020-08-26] MEDS: cloNIDine HCL 0.1 MG TABLET PO PRN (21:22)
[2020-08-26] MEDS: QUEtiapine FUMARATE 100 MG TABLET (FP) PO SCH (21:22)
[2020-08-26] MEDS: MELATONIN 5 MG TABLETS PO SCH (21:22)
[2020-08-26] MEDS: THIAMINE HCL 100 MG TABLET (FP) PO SCH (21:22)
[2020-08-27] MEDS ORDERED: METHADONE HCL 40 MG DISPERSABLE TABLET ONE (03:32)
[2020-08-27] MEDS ORDERED: METHADONE HCL 10 MG TABLET ONE (03:32)
[2020-08-27] MEDS: METHADONE 120 MG, METHADONE 10 MG PO SCH (05:55)
[2020-08-27] MEDS: HYDROCHLOROTHIAZIDE 25 MG TABLET (FP) PO SCH (10:10)
[2020-08-27] MEDS: DIVALPROEX SODIUM 500 MG TABLET E.C. PO SCH ×2 (10:10→21:43)
[2020-08-27] MEDS: PRENATAL VITAMINS W/ FOLIC ACID TABLET (FP) PO SCH (10:10)
[2020-08-27] MEDS: LISINOPRIL 20 MG TABLET PO SCH (10:10)
[2020-08-27] MEDS: FLUOCINONIDE 0.05% CREAM (15 GM TUBE) TP SCH ×2 (10:11→21:45)
[2020-08-27] MEDS: MINERAL OIL/PETROLAT/WATER TOPICAL CREAM 113 GM JAR TP SCH (10:11)
[2020-08-27] MEDS: DOXYCYCLINE HYCLATE 100 MG TABLET PO SCH ×2 (10:12→17:27)
[2020-08-27] MEDS: TOLNAFTATE 1% POWDER 45 GM POW TP SCH ×2 (10:12→21:45)
[2020-08-27] MEDS: VENLAFAXINE HCL 37.5 MG E.R. CAPSULE PO SCH (10:12)
[2020-08-27] MEDS: NICOTINE POLACRILEX 2 MG GUM BUC PRN ×3 (10:12→21:44)
[2020-08-27] MEDS: BUDESONIDE/FORMETEROL FUMARATE 80/4.5 mcg INHALER IH SCH ×2 (10:12→21:44)
[2020-08-27] MEDS ORDERED: PT OWN MED DRAWER 7, Y5N ONE ×2 (17:08→19:29)
[2020-08-27] MEDS: cloNIDine HCL 0.1 MG TABLET PO PRN (21:43)
[2020-08-27] MEDS: THIAMINE HCL 100 MG TABLET (FP) PO SCH (21:44)
[2020-08-27] MEDS: QUEtiapine FUMARATE 100 MG TABLET (FP) PO SCH (21:44)
[2020-08-27] MEDS: MELATONIN 5 MG TABLETS PO SCH (21:45)
[2020-08-28] MEDS ORDERED: METHADONE HCL 40 MG DISPERSABLE TABLET ONE (03:33)
[2020-08-28] MEDS ORDERED: METHADONE HCL 10 MG TABLET ONE (03:33)
[2020-08-28] MEDS: METHADONE 120 MG, METHADONE 10 MG PO SCH (06:10)
[2020-08-28] MEDS: PRENATAL VITAMINS W/ FOLIC ACID TABLET (FP) PO SCH (10:18)
[2020-08-28] MEDS: DIVALPROEX SODIUM 500 MG TABLET E.C. PO SCH ×2 (10:19→22:09)
[2020-08-28] MEDS: HYDROCHLOROTHIAZIDE 25 MG TABLET (FP) PO SCH (10:19)
[2020-08-28] MEDS: LISINOPRIL 20 MG TABLET PO SCH (10:19)
[2020-08-28] MEDS: DOXYCYCLINE HYCLATE 100 MG TABLET PO SCH ×2 (10:20→17:57)
[2020-08-28] MEDS: BUDESONIDE/FORMETEROL FUMARATE 80/4.5 mcg INHALER IH SCH (10:20)
[2020-08-28] MEDS: MINERAL OIL/PETROLAT/WATER TOPICAL CREAM 113 GM JAR TP SCH (10:20)
[2020-08-28] MEDS: SIMETHICONE 80 MG TAB.CHEW (FP) PO PRN (10:21)
[2020-08-28] MEDS: VENLAFAXINE HCL 37.5 MG E.R. CAPSULE PO SCH (10:21)
[2020-08-28] MEDS: NICOTINE POLACRILEX 2 MG GUM BUC PRN ×2 (10:22→22:09)
[2020-08-28] MEDS ORDERED: diphenhydrAMINE HCL 50 MG CAPSULE PO ONE (12:05)
[2020-08-28] MEDS ORDERED: diphenhydrAMINE HCL 25 MG CAPSULE (FP) PO PRN (12:06)
[2020-08-28] MEDS ORDERED: diphenhydrAMINE HCL 25 MG CAPSULE (FP) PO ONE (12:13)
[2020-08-28] MEDS: TOLNAFTATE 1% POWDER 45 GM POW TP SCH ×2 (12:17→22:10)
[2020-08-28] MEDS: FLUOCINONIDE 0.05% CREAM (15 GM TUBE) TP SCH ×2 (12:17→22:09)
[2020-08-28] MEDS ORDERED: ALBUTEROL SO4 2.5/IPRATROPIUM 0.5 INH SOL 3 ML VIAL.NEB. NEB PRN (13:22)
[2020-08-28] MEDS ORDERED: PT OWN MED DRAWER 7, Y5N ONE ×2 (17:56→20:36)
[2020-08-28] MEDS: THIAMINE HCL 100 MG TABLET (FP) PO SCH (22:08)
[2020-08-28] MEDS: QUEtiapine FUMARATE 100 MG TABLET (FP) PO SCH (22:09)
[2020-08-28] MEDS: MELATONIN 5 MG TABLETS PO SCH (22:09)
[2020-08-29] MEDS: BUDESONIDE/FORMETEROL FUMARATE 80/4.5 mcg INHALER IH SCH ×3 (00:12→21:13)
[2020-08-29] MEDS ORDERED: METHADONE HCL 40 MG DISPERSABLE TABLET ONE (06:02)
[2020-08-29] MEDS ORDERED: METHADONE HCL 10 MG TABLET ONE (06:02)
[2020-08-29] MEDS: METHADONE 120 MG, METHADONE 10 MG PO SCH (06:03)
[2020-08-29] MEDS: LISINOPRIL 20 MG TABLET PO SCH (10:15)
[2020-08-29] MEDS: HYDROCHLOROTHIAZIDE 25 MG TABLET (FP) PO SCH (10:15)
[2020-08-29] MEDS: DIVALPROEX SODIUM 500 MG TABLET E.C. PO SCH ×2 (10:15→21:13)
[2020-08-29] MEDS: TOLNAFTATE 1% POWDER 45 GM POW TP SCH ×2 (10:16→21:14)
[2020-08-29] MEDS: DOXYCYCLINE HYCLATE 100 MG TABLET PO SCH ×2 (10:17→17:18)
[2020-08-29] MEDS: VENLAFAXINE HCL 37.5 MG E.R. CAPSULE PO SCH (10:18)
[2020-08-29] MEDS: NICOTINE POLACRILEX 2 MG GUM BUC PRN ×2 (10:18→21:15)
[2020-08-29] MEDS: SIMETHICONE 80 MG TAB.CHEW (FP) PO PRN (10:19)
[2020-08-29] MEDS: MINERAL OIL/PETROLAT/WATER TOPICAL CREAM 113 GM JAR TP SCH (10:44)
[2020-08-29] MEDS: PRENATAL VITAMINS W/ FOLIC ACID TABLET (FP) PO SCH (10:44)
[2020-08-29] MEDS: FLUOCINONIDE 0.05% CREAM (15 GM TUBE) TP SCH ×2 (10:44→21:14)
[2020-08-29] MEDS ORDERED: PT OWN MED DRAWER 7, Y5N ONE ×2 (17:07→19:43)
[2020-08-29] MEDS: hydrOXYzine PAMOATE 25 MG CAPSULE (FP) PO PRN (21:13)
[2020-08-29] MEDS: MELATONIN 5 MG TABLETS PO SCH (21:13)
[2020-08-29] MEDS: QUEtiapine FUMARATE 100 MG TABLET (FP) PO SCH (21:13)
[2020-08-29] MEDS: cloNIDine HCL 0.1 MG TABLET PO PRN (21:13)
[2020-08-29] MEDS: THIAMINE HCL 100 MG TABLET (FP) PO SCH (21:13)
[2020-08-30] MEDS ORDERED: METHADONE HCL 10 MG TABLET ONE (03:24)
[2020-08-30] MEDS ORDERED: METHADONE HCL 40 MG DISPERSABLE TABLET ONE (03:24)
[2020-08-30] MEDS: METHADONE 120 MG, METHADONE 10 MG PO SCH (05:59)
[2020-08-30 06:55] VITALS: TEMP 97.7
[2020-08-30] MEDS: HYDROCHLOROTHIAZIDE 25 MG TABLET (FP) PO SCH (09:04)
[2020-08-30] MEDS: LISINOPRIL 20 MG TABLET PO SCH (09:04)
[2020-08-30] MEDS: DIVALPROEX SODIUM 500 MG TABLET E.C. PO SCH (09:04)
[2020-08-30] MEDS: PRENATAL VITAMINS W/ FOLIC ACID TABLET (FP) PO SCH (09:04)
[2020-08-30] MEDS: FLUOCINONIDE 0.05% CREAM (15 GM TUBE) TP SCH (09:05)
[2020-08-30] MEDS: MINERAL OIL/PETROLAT/WATER TOPICAL CREAM 113 GM JAR TP SCH (09:05)
[2020-08-30] MEDS: VENLAFAXINE HCL 37.5 MG E.R. CAPSULE PO SCH (09:05)
[2020-08-30] MEDS: BUDESONIDE/FORMETEROL FUMARATE 80/4.5 mcg INHALER IH SCH (09:05)
[2020-08-30] MEDS: TOLNAFTATE 1% POWDER 45 GM POW TP SCH (09:06)
[2020-08-30] MEDS: DOXYCYCLINE HYCLATE 100 MG TABLET PO SCH (09:06)
[2020-08-30 09:13] VITALS: BP 144/80; PULSE 75
== END 2020-08-30 09:50 | disposition home or self-care (01) | DRG 772 ==
LOC: YASAS 12:33 → Y5N 12:34
PROVIDERS: ADMIT Allergy & Immunology; ATTEND Allergy & Immunology
PROC: HZ42ZZZ Group Counseling for Substance Abuse Treatment, Cognitive-Behavioral (ICD-10-PCS; principal; 2020-08-09)
DX: F10.20 Alcohol dependence, uncomplicated (principal); F11.20 Opioid dependence, uncomplicated; F14.20 Cocaine dependence, uncomplicated; F17.210 Nicotine dependence, cigarettes, uncomplicated; F31.9 Bipolar disorder, unspecified; E03.9 Hypothyroidism, unspecified; I10 Essential (primary) hypertension; J45.909 Unspecified asthma, uncomplicated; K21.9 Gastro-esophageal reflux disease without esophagitis; L03.115 Cellulitis of right lower limb; L03.116 Cellulitis of left lower limb; L80 Vitiligo; M54.5 Low back pain; G89.29 Other chronic pain; R06.02 Shortness of breath; R60.0 Localized edema; Z88.0 Allergy status to penicillin; Z91.018 Allergy to other foods
CPT/HCPCS: 36415; 80164; 87389; 94640; C9803; J0735; U0003; U0005

== ENCOUNTER 2020-08-09 18:24 | Emergency (ER) | payer OTHER ==
[2020-08-09] MEDS ORDERED: methylPREDNISolone NA SUCC 125 MG/2 ML VIAL IVPB ONE (18:47)
[2020-08-09] MEDS ORDERED: LACTATED RINGERS SOLUTION 1000 ML INFUS.BAG IV ONE (18:48)
[2020-08-09] MEDS ORDERED: NALOXONE HCL 0.4 MG/ML VIAL IVPUSH ONE (18:49)
[2020-08-09] MEDS ORDERED: NALOXONE HCL 0.4 MG/ML VIAL ONE (18:54)
[2020-08-09] MEDS ORDERED: ALBUTEROL SO4 2.5/IPRATROPIUM 0.5 INH SOL 3 ML VIAL.NEB. NEB ONE (18:54)
[2020-08-09] MEDS ORDERED: methylPREDNISolone NA SUCC 125 MG/2 ML VIAL ONE (18:55)
[2020-08-09] MEDS: ALBUTEROL SO4 2.5/IPRATROPIUM 0.5 INH SOL 3 ML VIAL.NEB. NEB SCH ×4 (18:59→20:04)
[2020-08-09 19:00] VITALS: TEMP 97.5; BMI 26.6
[2020-08-09] MEDS ORDERED: ONDANSETRON 4 MG/2 ML VIAL ONE (19:16)
[2020-08-09] MEDS ORDERED: ONDANSETRON 4 MG/2 ML VIAL IVPUSH ONE (19:27)
[2020-08-09] MEDS ORDERED: METOCLOPRAMIDE HCL INJECTION 10 MG/2 ML VIAL IVPUSH ONE (19:27)
[2020-08-09] MEDS ORDERED: METOCLOPRAMIDE HCL INJECTION 10 MG/2 ML VIAL ONE (19:34)
[2020-08-09 19:55] LABS: VENOUS BASE EXCESS 8.4 mmol/L (-2-2); VENOUS O2 SATURATION 96.4 % (70-80); VENOUS PCO2 63.6 mmHg (38-52); VENOUS PH 7.365 (7.310-7.410)
[2020-08-09 20:01] LABS: BASO % 0.4 % (0-2.0); EOS % 3.4 % (0-4.5); HEMATOCRIT 29.5 % (32.4-45.2); LYMPH % 26.7 % (8-40); MCH 38.6 pg (25.7-33.7); MEAN CELL VOLUME 113.5 fl (80-96); MEAN PLT VOLUME 9.5 fl (7.5-11.1); NEUT % 59.5 % (42.8-82.8); PLATELET COUNT 157 K/MM3 (134-434); RDW 14.8 % (11.6-15.6); WHITE BLOOD COUNT 4.5 K/mm3 (4.0-10.0)
[2020-08-09 20:10] LABS: INR 1.01 (0.83-1.09); PROTHROMBIN TIME (PATIENT) 12.2 SEC (9.7-13.0)
[2020-08-09 20:13] LABS: ACTIVATED PTT 28.4 SECONDS (25.2-36.5)
[2020-08-09 20:14] LABS: CHLORIDE 101 mmol/L (98-107); SODIUM 139 mmol/L (136-145)
[2020-08-09 20:18] LABS: CALCIUM 8.6 mg/dL (8.5-10.1)
[2020-08-09 20:19] LABS: ALBUMIN 3.1 g/dl (3.4-5.0); ANION GAP 4 MMOL/L (8-16); BLOOD UREA NITROGEN 15.3 mg/dL (7-18); CO2 34 mmol/L (21-32); GLUCOSE,RANDOM 88 mg/dL (74-106); MAGNESIUM 1.8 mg/dL (1.8-2.4)
[2020-08-09 20:22] LABS: SGOT/AST 31 U/L (15-37); SGPT/ALT 39 U/L (13-61)
[2020-08-09 20:24] LABS: BILIRUBIN,TOTAL 0.4 mg/dL (0.2-1); TOT PROT 7.1 g/dl (6.4-8.2)
[2020-08-09 20:25] LABS: ALK PHOS 134 U/L (45-117)
[2020-08-09 20:28] LABS: N-TERMINAL BNP 252.8 pg/ml (5-125)
[2020-08-09] MEDS ORDERED: ALBUTEROL SO4 0.083% IH SOL 2.5 MG/3 ML VIAL.NEB. NEB ONE ×2 (21:16→21:48)
[2020-08-09 22:39] VITALS: BP 135/83; PULSE 78
[2020-08-09 23:40] LABS: ANISOCYTOSIS 1+; MACROCYTOSIS 2+; PLATELET ESTIMATE NORMAL
== END 2020-08-10 00:15 | disposition home or self-care (01) ==
LOC: JER 18:24
PROC: 3E0F7GC Introduction of Other Therapeutic Substance into Respiratory Tract, Via Natural or Artificial Opening (ICD-10-PCS; principal; 2020-08-09)
PROC: 3E0F7GC Introduction of Other Therapeutic Substance into Respiratory Tract, Via Natural or Artificial Opening (ICD-10-PCS; 2020-08-09)
PROC: 3E033GC Introduction of Other Therapeutic Substance into Peripheral Vein, Percutaneous Approach (ICD-10-PCS; 2020-08-09)
PROC: 3E033GC Introduction of Other Therapeutic Substance into Peripheral Vein, Percutaneous Approach (ICD-10-PCS; 2020-08-09)
PROC: 3E033NZ Introduction of Analgesics, Hypnotics, Sedatives into Peripheral Vein, Percutaneous Approach (ICD-10-PCS; 2020-08-09)
PROC: 3E033GC Introduction of Other Therapeutic Substance into Peripheral Vein, Percutaneous Approach (ICD-10-PCS; 2020-08-09)
DX: J45.901 Unspecified asthma with (acute) exacerbation (principal)
CPT/HCPCS: 36415; 71045-TC-FY; 80053; 82550; 82803; 83605; 83735; 83880; 84443; 84484; 85025; 85610; 85730; 93005; 93010; 93970-TC; 99285-25

== ENCOUNTER 2021-10-10 09:34 | Inpatient (IN) | payer OTHER ==
[2021-10-10 10:05] VITALS: BMI 27.1
[2021-10-10] MEDS ORDERED: LOPERAMIDE HCL 2 MG CAPSULE PO PRN (10:12)
[2021-10-10] MEDS ORDERED: IBUPROFEN 400 MG TABLET (FP) PO PRN (10:12)
[2021-10-10] MEDS ORDERED: MAG HYDROX/AL HYDROX/SIMETH 30 ML UNIT-DOSE CUP PO PRN (10:12)
[2021-10-10] MEDS ORDERED: NICOTINE 10 MG CARTRIDGE (INHALER) IH PRN (10:12)
[2021-10-10] MEDS ORDERED: DICYCLOMINE HCL 10 MG CAPSULE PO PRN (10:12)
[2021-10-10] MEDS ORDERED: BISMUTH SUBSALICYLATE 262 MG/15 ML BTL PO PRN (10:12)
[2021-10-10] MEDS ORDERED: ONDANSETRON *ODT* 4 MG TABLET SL PRN (10:12)
[2021-10-10] MEDS ORDERED: BENZOCAINE/MENTHOL (CHLORASEPTIC ) LOZENGE MM PRN (10:12)
[2021-10-10] MEDS ORDERED: chlordiazePOXIDE HCL 25 MG CAPSULE PO PRN (10:12)
[2021-10-10] MEDS ORDERED: MAGNESIUM HYDROX 2400MG/30ML ORAL SUSPENSION 30 ML CUP PO PRN (10:12)
[2021-10-10] MEDS ORDERED: MAGNESIUM CITRATE 300 ML BOTTLE PO PRN (10:12)
[2021-10-10] MEDS ORDERED: ACETAMINOPHEN 325 MG TABLET (FP) PO PRN ×2 (10:12)
[2021-10-10] MEDS ORDERED: LISINOPRIL 20 MG TABLET PO ONE (12:15)
[2021-10-10] MEDS ORDERED: HYDROCHLOROTHIAZIDE 25 MG TABLET (FP) PO ONE (12:16)
[2021-10-10] MEDS: chlordiazePOXIDE HCL 25 MG CAPSULE PO SCH ×3 (12:18→22:14)
[2021-10-10] MEDS: NICOTINE 7 MG/24 HOURS TOPICAL PATCH TD SCH (12:19)
[2021-10-10] MEDS ORDERED: COLLOIDAL OATMEAL 1 BAR EACH TP PRN (12:20)
[2021-10-10] MEDS: PRENATAL VITAMINS W/ FOLIC ACID TABLET (FP) PO SCH (12:22)
[2021-10-10] MEDS ORDERED: methaDONE HCL 10 MG TABLET PO SCH (12:30)
[2021-10-10] MEDS ORDERED: methaDONE HCL 10 MG TABLET ONE (12:37)
[2021-10-10] MEDS ORDERED: methaDONE HCL 40 MG DISPERSABLE TABLET ONE (12:37)
[2021-10-10] MEDS: methaDONE 40 MG, methaDONE 20 MG PO SCH (12:44)
[2021-10-10] MEDS: IBUPROFEN 600 MG TABLET (FP) PO PRN (14:45)
[2021-10-10] MEDS: DIVALPROEX SODIUM 500 MG TABLET E.C. PO SCH ×2 (14:45→22:14)
[2021-10-10] MEDS: hydrOXYzine PAMOATE 25 MG CAPSULE (FP) PO SCH ×3 (14:45→22:14)
[2021-10-10] MEDS: NICOTINE POLACRILEX 4 MG GUM BUC PRN (15:11)
[2021-10-10 17:33] LABS: CALCIUM 9.5 mg/dL (8.5-10.1)
[2021-10-10 17:35] LABS: ALBUMIN 3.7 g/dl (3.4-5.0); HEMOGLOBIN 13.3 GM/dL (10.7-15.3); MCH 33.2 pg (25.7-33.7); MCHC 32.4 g/dl (32.0-36.0); MEAN CELL VOLUME 102.5 fl (80-96); MEAN PLT VOLUME 9.7 fl (7.5-11.1); PLATELET COUNT 213 10^3/uL (134-434); RDW 15.2 % (11.6-15.6); WHITE BLOOD COUNT 5.5 K/mm3 (4.0-10.0)
[2021-10-10 17:38] LABS: CREATININE 1.2 mg/dL (0.55-1.3)
[2021-10-10 17:39] LABS: BILIRUBIN,TOTAL 0.3 mg/dL (0.2-1)
[2021-10-10] MEDS: METHOCARBAMOL 500 MG TABLET PO PRN (17:47)
[2021-10-10] MEDS: MELATONIN 5 MG TABLETS PO SCH (22:13)
[2021-10-10] MEDS: cloNIDine HCL 0.1 MG TABLET PO SCH (22:14)
[2021-10-10] MEDS: QUEtiapine FUMARATE 100 MG TABLET (FP) PO SCH (22:14)
[2021-10-10] MEDS: SUVOREXANT 10 MG TABLET PO PRN (22:14)
[2021-10-10] MEDS: THIAMINE HCL 100 MG TABLET (FP) PO SCH (22:14)
[2021-10-10] MEDS: BUDESONIDE/FORMETEROL FUMARATE 80/4.5 mcg INHALER IH SCH (22:25)
[2021-10-11] MEDS ORDERED: methaDONE HCL 40 MG DISPERSABLE TABLET ONE (04:22)
[2021-10-11] MEDS ORDERED: methaDONE HCL 10 MG TABLET ONE (04:22)
[2021-10-11] MEDS: chlordiazePOXIDE HCL 25 MG CAPSULE PO SCH ×2 (05:23→10:15)
[2021-10-11] MEDS: DIVALPROEX SODIUM 500 MG TABLET E.C. PO SCH ×3 (05:23→22:24)
[2021-10-11] MEDS: methaDONE 40 MG, methaDONE 20 MG PO SCH (05:24)
[2021-10-11] MEDS: hydrOXYzine PAMOATE 25 MG CAPSULE (FP) PO SCH ×2 (05:24→10:14)
[2021-10-11] MEDS: BUDESONIDE/FORMETEROL FUMARATE 80/4.5 mcg INHALER IH SCH ×2 (10:13→22:25)
[2021-10-11] MEDS: PRENATAL VITAMINS W/ FOLIC ACID TABLET (FP) PO SCH (10:14)
[2021-10-11] MEDS: LISINOPRIL 20 MG TABLET PO SCH (10:14)
[2021-10-11] MEDS: HYDROCHLOROTHIAZIDE 25 MG TABLET (FP) PO SCH (10:14)
[2021-10-11] MEDS: cloNIDine HCL 0.1 MG TABLET PO SCH ×2 (10:25→22:24)
[2021-10-11] MEDS: NICOTINE 7 MG/24 HOURS TOPICAL PATCH TD SCH (10:33)
[2021-10-11] MEDS: NICOTINE POLACRILEX 4 MG GUM BUC PRN ×2 (10:33→13:20)
[2021-10-11] MEDS: hydrOXYzine PAMOATE 25 MG CAPSULE (FP) PO PRN ×2 (17:40→22:24)
[2021-10-11] MEDS: IBUPROFEN 600 MG TABLET (FP) PO PRN (17:40)
[2021-10-11] MEDS: chlordiazePOXIDE HCL 10 MG CAPSULE PO SCH ×2 (17:40→22:24)
[2021-10-11] MEDS: METHOCARBAMOL 500 MG TABLET PO PRN (17:41)
[2021-10-11] MEDS: MELATONIN 5 MG TABLETS PO SCH (22:23)
[2021-10-11] MEDS: SUVOREXANT 10 MG TABLET PO PRN (22:24)
[2021-10-11] MEDS: QUEtiapine FUMARATE 100 MG TABLET (FP) PO SCH (22:24)
[2021-10-11] MEDS: THIAMINE HCL 100 MG TABLET (FP) PO SCH (22:24)
[2021-10-12] MEDS ORDERED: methaDONE HCL 10 MG TABLET ONE (04:29)
[2021-10-12] MEDS ORDERED: methaDONE HCL 40 MG DISPERSABLE TABLET ONE (04:29)
[2021-10-12] MEDS: methaDONE 40 MG, methaDONE 20 MG PO SCH (05:32)
[2021-10-12] MEDS: chlordiazePOXIDE HCL 25 MG CAPSULE PO SCH ×4 (05:32→22:09)
[2021-10-12] MEDS: DIVALPROEX SODIUM 500 MG TABLET E.C. PO SCH ×3 (05:33→22:09)
[2021-10-12] MEDS: IBUPROFEN 600 MG TABLET (FP) PO PRN (06:07)
[2021-10-12] MEDS: BUDESONIDE/FORMETEROL FUMARATE 80/4.5 mcg INHALER IH SCH ×2 (10:05→22:09)
[2021-10-12] MEDS: PRENATAL VITAMINS W/ FOLIC ACID TABLET (FP) PO SCH (10:05)
[2021-10-12] MEDS: HYDROCHLOROTHIAZIDE 25 MG TABLET (FP) PO SCH (10:06)
[2021-10-12] MEDS: cloNIDine HCL 0.1 MG TABLET PO SCH ×2 (10:06→22:09)
[2021-10-12] MEDS: METHOCARBAMOL 500 MG TABLET PO PRN (10:06)
[2021-10-12] MEDS: LISINOPRIL 20 MG TABLET PO SCH (10:06)
[2021-10-12] MEDS: NICOTINE 7 MG/24 HOURS TOPICAL PATCH TD SCH (10:08)
[2021-10-12] MEDS: NICOTINE POLACRILEX 4 MG GUM BUC PRN ×2 (10:10→17:34)
[2021-10-12] MEDS: MELATONIN 5 MG TABLETS PO SCH (22:09)
[2021-10-12] MEDS: THIAMINE HCL 100 MG TABLET (FP) PO SCH (22:09)
[2021-10-12] MEDS: QUEtiapine FUMARATE 100 MG TABLET (FP) PO SCH (22:09)
[2021-10-12] MEDS: ALBUTEROL SO4 HFA INHALER IH PRN (22:11)
[2021-10-13] MEDS ORDERED: chlordiazePOXIDE HCL 10 MG CAPSULE PO PRN
[2021-10-13] MEDS ORDERED: methaDONE HCL 40 MG DISPERSABLE TABLET ONE (04:39)
[2021-10-13] MEDS ORDERED: methaDONE HCL 10 MG TABLET ONE (04:39)
[2021-10-13] MEDS: methaDONE 40 MG, methaDONE 20 MG PO SCH (05:03)
[2021-10-13] MEDS: chlordiazePOXIDE HCL 10 MG CAPSULE PO SCH ×4 (05:03→22:52)
[2021-10-13] MEDS: DIVALPROEX SODIUM 500 MG TABLET E.C. PO SCH ×3 (05:03→22:51)
[2021-10-13] MEDS: hydrOXYzine PAMOATE 25 MG CAPSULE (FP) PO PRN ×3 (10:50→22:51)
[2021-10-13] MEDS: METHOCARBAMOL 500 MG TABLET PO PRN (10:50)
[2021-10-13] MEDS: HYDROCHLOROTHIAZIDE 25 MG TABLET (FP) PO SCH (10:50)
[2021-10-13] MEDS: cloNIDine HCL 0.1 MG TABLET PO SCH ×2 (10:50→22:51)
[2021-10-13] MEDS: LISINOPRIL 20 MG TABLET PO SCH (10:50)
[2021-10-13] MEDS: PRENATAL VITAMINS W/ FOLIC ACID TABLET (FP) PO SCH (10:50)
[2021-10-13] MEDS: BUDESONIDE/FORMETEROL FUMARATE 80/4.5 mcg INHALER IH SCH ×2 (10:51→22:52)
[2021-10-13] MEDS: NICOTINE 7 MG/24 HOURS TOPICAL PATCH TD SCH (10:51)
[2021-10-13] MEDS: ALBUTEROL SO4 HFA INHALER IH PRN (18:05)
[2021-10-13] MEDS: THIAMINE HCL 100 MG TABLET (FP) PO SCH (22:51)
[2021-10-13] MEDS: QUEtiapine FUMARATE 100 MG TABLET (FP) PO SCH (22:51)
[2021-10-13] MEDS: MELATONIN 5 MG TABLETS PO SCH (22:51)
[2021-10-14] MEDS ORDERED: methaDONE HCL 40 MG DISPERSABLE TABLET ONE (04:14)
[2021-10-14] MEDS ORDERED: methaDONE HCL 10 MG TABLET ONE (04:14)
[2021-10-14] MEDS: DIVALPROEX SODIUM 500 MG TABLET E.C. PO SCH ×3 (05:44→22:33)
[2021-10-14] MEDS: chlordiazePOXIDE HCL 10 MG CAPSULE PO SCH ×2 (05:44→18:25)
[2021-10-14] MEDS: methaDONE 40 MG, methaDONE 20 MG PO SCH (05:44)
[2021-10-14] MEDS: BUDESONIDE/FORMETEROL FUMARATE 80/4.5 mcg INHALER IH SCH ×2 (10:20→22:33)
[2021-10-14] MEDS: cloNIDine HCL 0.1 MG TABLET PO SCH ×2 (10:20→22:34)
[2021-10-14] MEDS: PRENATAL VITAMINS W/ FOLIC ACID TABLET (FP) PO SCH (10:20)
[2021-10-14] MEDS: hydrOXYzine PAMOATE 25 MG CAPSULE (FP) PO PRN (10:20)
[2021-10-14] MEDS: LISINOPRIL 20 MG TABLET PO SCH (10:20)
[2021-10-14] MEDS: NICOTINE 7 MG/24 HOURS TOPICAL PATCH TD SCH (10:20)
[2021-10-14] MEDS: HYDROCHLOROTHIAZIDE 25 MG TABLET (FP) PO SCH (10:20)
[2021-10-14] MEDS: MELATONIN 5 MG TABLETS PO SCH (22:33)
[2021-10-14] MEDS: QUEtiapine FUMARATE 100 MG TABLET (FP) PO SCH (22:33)
[2021-10-14] MEDS: THIAMINE HCL 100 MG TABLET (FP) PO SCH (22:33)
[2021-10-15] MEDS ORDERED: chlordiazePOXIDE HCL 10 MG CAPSULE PO ONE (05:00)
[2021-10-15] MEDS ORDERED: methaDONE HCL 10 MG TABLET ONE (06:39)
[2021-10-15] MEDS ORDERED: methaDONE HCL 40 MG DISPERSABLE TABLET ONE (06:39)
[2021-10-15] MEDS: DIVALPROEX SODIUM 500 MG TABLET E.C. PO SCH (06:41)
[2021-10-15] MEDS: methaDONE 40 MG, methaDONE 20 MG PO SCH (06:41)
[2021-10-15 09:30] VITALS: BP 152/91; PULSE 83; TEMP 96.6
[2021-10-15] MEDS: BUDESONIDE/FORMETEROL FUMARATE 80/4.5 mcg INHALER IH SCH (10:10)
[2021-10-15] MEDS: cloNIDine HCL 0.1 MG TABLET PO SCH (10:10)
[2021-10-15] MEDS: HYDROCHLOROTHIAZIDE 25 MG TABLET (FP) PO SCH (10:10)
[2021-10-15] MEDS: NICOTINE 7 MG/24 HOURS TOPICAL PATCH TD SCH (10:11)
[2021-10-15] MEDS: PRENATAL VITAMINS W/ FOLIC ACID TABLET (FP) PO SCH (10:11)
[2021-10-15] MEDS: NICOTINE POLACRILEX 4 MG GUM BUC PRN (10:13)
[2021-10-15] MEDS: LISINOPRIL 20 MG TABLET PO SCH (11:00)
== END 2021-10-15 11:25 | disposition home or self-care (01) | DRG 773 ==
LOC: YASAS 09:34 → Y6N 11:14
PROVIDERS: ADMIT Allergy & Immunology; ATTEND Surgery
PROC: HZ2ZZZZ Detoxification Services for Substance Abuse Treatment (ICD-10-PCS; principal; 2021-10-10)
DX: F10.230 Alcohol dependence with withdrawal, uncomplicated (principal); F11.20 Opioid dependence, uncomplicated; F13.230 Sedative, hypnotic or anxiolytic dependence with withdrawal, uncomplicated; F12.20 Cannabis dependence, uncomplicated; F17.210 Nicotine dependence, cigarettes, uncomplicated; F31.77 Bipolar disorder, in partial remission, most recent episode mixed; F19.282 Other psychoactive substance dependence with psychoactive substance-induced sleep disorder; G47.00 Insomnia, unspecified; J45.909 Unspecified asthma, uncomplicated; K21.9 Gastro-esophageal reflux disease without esophagitis; E03.9 Hypothyroidism, unspecified; R01.1 Cardiac murmur, unspecified; R00.1 Bradycardia, unspecified; M54.59 Other low back pain; G89.29 Other chronic pain; D64.9 Anemia, unspecified; L80 Vitiligo; Y04.0XXA Assault by unarmed brawl or fight, initial encounter; Y93.9 Activity, unspecified; Y92.9 Unspecified place or not applicable; W19.XXXA Unspecified fall, initial encounter; Z91.81 History of falling; Z86.19 Personal history of other infectious and parasitic diseases; Z88.0 Allergy status to penicillin; Z91.018 Allergy to other foods; Z91.14 Patient's other noncompliance with medication regimen; Z56.0 Unemployment, unspecified
CPT/HCPCS: 36415; 80053; 85027; 86593; 86780; 87811; C9803-CS; J0735; U0003; U0005

== ENCOUNTER 2021-11-18 14:11 | Inpatient (IN) | payer OTHER ==
[2021-11-18 14:58] VITALS: BMI 27.4
[2021-11-18] MEDS ORDERED: guaiFENesin 200 MG/10 ML 10 ML UNIT-DOSE CUPS PO PRN (16:13)
[2021-11-18] MEDS ORDERED: ACETAMINOPHEN 325 MG TABLET (FP) PO PRN (16:13)
[2021-11-18] MEDS ORDERED: P-EPHED 60MG/TRIPROLIDI 2.5MG TABLET PO PRN (16:13)
[2021-11-18] MEDS ORDERED: MAGNESIUM HYDROX 2400MG/30ML ORAL SUSPENSION 30 ML CUP PO PRN (16:13)
[2021-11-18] MEDS ORDERED: MAGNESIUM CITRATE 300 ML BOTTLE PO PRN (16:13)
[2021-11-18] MEDS ORDERED: LOPERAMIDE HCL 2 MG CAPSULE PO PRN (16:13)
[2021-11-18] MEDS: MELATONIN 5 MG TABLETS PO SCH (21:14)
[2021-11-18] MEDS: THIAMINE HCL 100 MG TABLET (FP) PO SCH (21:14)
[2021-11-19] MEDS: IBUPROFEN 400 MG TABLET (FP) PO PRN (01:25)
[2021-11-19] MEDS ORDERED: cloNIDine HCL 0.1 MG TABLET PO ONE (07:23)
[2021-11-19] MEDS: PRENATAL VITAMINS W/ FOLIC ACID TABLET (FP) PO SCH (09:38)
[2021-11-19] MEDS: NICOTINE 14 MG/24 HOURS TOPICAL PATCH TD SCH (09:38)
[2021-11-19] MEDS: LISINOPRIL 20 MG TABLET PO SCH (09:38)
[2021-11-19 09:43] LABS: HEMATOCRIT 37.2 % (32.4-45.2); HEMOGLOBIN 12.3 GM/dL (10.7-15.3); MCH 33.6 pg (25.7-33.7); MEAN CELL VOLUME 101.6 fl (80-96); PLATELET COUNT 165 10^3/uL (134-434); RBC 3.66 M/mm3 (3.60-5.2); RDW 14.7 % (11.6-15.6); WHITE BLOOD COUNT 4.7 K/mm3 (4.0-10.0)
[2021-11-19 09:45] LABS: PH,URINE 7.5 (5.0-8.0); URINE APPEARANCE CLEAR; URINE BILIRUBIN NEGATIVE (NEGATIVE); URINE COLOR YELLOW; URINE GLUCOSE (UA) NEGATIVE (NEGATIVE); URINE KETONE NEGATIVE (NEGATIVE); URINE LEUK ESTERASE NEGATIVE (NEGATIVE); URINE NITRITE NEGATIVE (NEGATIVE); URINE PROTEIN NEGATIVE (NEGATIVE); URINE UROBILINOGEN 0.2 mg/dL (0.2-1.0)
[2021-11-19 09:47] LABS: CALCIUM 9.5 mg/dL (8.5-10.1)
[2021-11-19 09:48] LABS: ALBUMIN 3.5 g/dl (3.4-5.0); BLOOD UREA NITROGEN 19.8 mg/dL (7-18)
[2021-11-19 09:51] LABS: CREATININE 1.2 mg/dL (0.55-1.3)
[2021-11-19 09:53] LABS: TOT PROT 7.8 g/dl (6.4-8.2)
[2021-11-19] MEDS: NICOTINE 10 MG CARTRIDGE (INHALER) IH PRN (09:53)
[2021-11-19 09:56] LABS: BILIRUBIN,TOTAL 0.4 mg/dL (0.2-1)
[2021-11-19] MEDS ORDERED: methaDONE HCL 40 MG DISPERSABLE TABLET PO ONE (10:28)
[2021-11-19] MEDS: MAG HYDROX/AL HYDROX/SIMETH 30 ML UNIT-DOSE CUP PO PRN (11:08)
[2021-11-19 11:44] LABS: SYPHILIS W/ RPR CONF REACTIVE (NONREACTIVE)
[2021-11-19] MEDS: VENLAFAXINE HCL 37.5 MG TABLET PO SCH (11:56)
[2021-11-19] MEDS ORDERED: FAMOTIDINE 20 MG TABLET PO ONE (13:30)
[2021-11-19] MEDS: DIVALPROEX SODIUM 500 MG TABLET E.C. PO SCH ×2 (13:38→21:55)
[2021-11-19] MEDS ORDERED: hydrOXYzine PAMOATE 25 MG CAPSULE (FP) PO PRN (15:09)
[2021-11-19] MEDS: FAMOTIDINE 20 MG TABLET PO SCH (21:55)
[2021-11-19] MEDS: QUEtiapine FUMARATE 100 MG TABLET (FP) PO SCH (21:55)
[2021-11-19] MEDS: MELATONIN 5 MG TABLETS PO SCH (21:55)
[2021-11-19] MEDS: hydrOXYzine PAMOATE 50 MG CAPSULE (FP) PO SCH (21:55)
[2021-11-19] MEDS: THIAMINE HCL 100 MG TABLET (FP) PO SCH (21:55)
[2021-11-19] MEDS ORDERED: QUEtiapine FUMARATE 200 MG TABLET PO SCH (22:00)
[2021-11-20] MEDS ORDERED: methaDONE HCL 10 MG TABLET PO SCH (06:00)
[2021-11-20] MEDS ORDERED: methaDONE HCL 10 MG TABLET ONE (06:21)
[2021-11-20] MEDS ORDERED: methaDONE HCL 40 MG DISPERSABLE TABLET ONE (06:21)
[2021-11-20] MEDS: DIVALPROEX SODIUM 500 MG TABLET E.C. PO SCH ×3 (06:22→21:40)
[2021-11-20] MEDS: VENLAFAXINE HCL 37.5 MG TABLET PO SCH (10:30)
[2021-11-20] MEDS: FAMOTIDINE 20 MG TABLET PO SCH ×2 (10:30→21:40)
[2021-11-20] MEDS: NICOTINE 14 MG/24 HOURS TOPICAL PATCH TD SCH (10:30)
[2021-11-20] MEDS: PRENATAL VITAMINS W/ FOLIC ACID TABLET (FP) PO SCH (10:30)
[2021-11-20] MEDS: LISINOPRIL 20 MG TABLET PO SCH (10:30)
[2021-11-20] MEDS: COLLOIDAL OATMEAL 1 BAR EACH TP PRN (14:29)
[2021-11-20] MEDS: hydrOXYzine PAMOATE 50 MG CAPSULE (FP) PO SCH (21:40)
[2021-11-20] MEDS: MELATONIN 5 MG TABLETS PO SCH (21:40)
[2021-11-20] MEDS: THIAMINE HCL 100 MG TABLET (FP) PO SCH (21:40)
[2021-11-20] MEDS: QUEtiapine FUMARATE 100 MG TABLET (FP) PO SCH (21:41)
[2021-11-20] MEDS: MAG HYDROX/AL HYDROX/SIMETH 30 ML UNIT-DOSE CUP PO PRN (23:04)
[2021-11-21] MEDS ORDERED: methaDONE HCL 10 MG TABLET PO SCH (06:00)
[2021-11-21] MEDS: LISINOPRIL 20 MG TABLET PO SCH ×2 (06:03→10:27)
[2021-11-21] MEDS: DIVALPROEX SODIUM 500 MG TABLET E.C. PO SCH ×3 (06:03→21:41)
[2021-11-21] MEDS: VENLAFAXINE HCL 37.5 MG TABLET PO SCH (10:26)
[2021-11-21] MEDS: PRENATAL VITAMINS W/ FOLIC ACID TABLET (FP) PO SCH (10:26)
[2021-11-21] MEDS: FAMOTIDINE 20 MG TABLET PO SCH ×2 (10:27→21:41)
[2021-11-21] MEDS: NICOTINE 14 MG/24 HOURS TOPICAL PATCH TD SCH (10:27)
[2021-11-21] MEDS: MELATONIN 5 MG TABLETS PO SCH (21:41)
[2021-11-21] MEDS: hydrOXYzine PAMOATE 50 MG CAPSULE (FP) PO SCH (21:41)
[2021-11-21] MEDS: QUEtiapine FUMARATE 100 MG TABLET (FP) PO SCH (21:41)
[2021-11-21] MEDS: THIAMINE HCL 100 MG TABLET (FP) PO SCH (21:41)
[2021-11-21] MEDS: NICOTINE POLACRILEX 2 MG GUM BUC PRN (21:53)
[2021-11-21] MEDS: SUVOREXANT 10 MG TABLET PO PRN (21:53)
[2021-11-22] MEDS: DIVALPROEX SODIUM 500 MG TABLET E.C. PO SCH ×3 (05:42→21:20)
[2021-11-22] MEDS ORDERED: methaDONE HCL 10 MG TABLET PO SCH (06:00)
[2021-11-22] MEDS: NICOTINE 10 MG CARTRIDGE (INHALER) IH PRN ×2 (06:37→21:42)
[2021-11-22] MEDS: FAMOTIDINE 20 MG TABLET PO SCH ×2 (09:49→21:20)
[2021-11-22] MEDS: PRENATAL VITAMINS W/ FOLIC ACID TABLET (FP) PO SCH (09:49)
[2021-11-22] MEDS: LISINOPRIL 20 MG TABLET PO SCH (09:49)
[2021-11-22] MEDS: NICOTINE POLACRILEX 2 MG GUM BUC PRN (09:50)
[2021-11-22] MEDS: VENLAFAXINE HCL 37.5 MG TABLET PO SCH (09:50)
[2021-11-22] MEDS: NICOTINE 14 MG/24 HOURS TOPICAL PATCH TD SCH (09:50)
[2021-11-22] MEDS: TOLNAFTATE 1% CREAM 15 GM TUBE TP SCH ×2 (12:47→21:21)
[2021-11-22] MEDS: IBUPROFEN 400 MG TABLET (FP) PO PRN (14:16)
[2021-11-22] MEDS: SUVOREXANT 10 MG TABLET PO PRN (21:19)
[2021-11-22] MEDS: QUEtiapine FUMARATE 100 MG TABLET (FP) PO SCH (21:20)
[2021-11-22] MEDS: THIAMINE HCL 100 MG TABLET (FP) PO SCH (21:20)
[2021-11-22] MEDS: MELATONIN 5 MG TABLETS PO SCH (21:20)
[2021-11-22] MEDS: hydrOXYzine PAMOATE 50 MG CAPSULE (FP) PO SCH (21:20)
[2021-11-23] MEDS: DIVALPROEX SODIUM 500 MG TABLET E.C. PO SCH ×3 (06:12→21:17)
[2021-11-23] MEDS: methaDONE HCL 40 MG DISPERSABLE TABLET PO SCH (06:13)
[2021-11-23] MEDS: NICOTINE 14 MG/24 HOURS TOPICAL PATCH TD SCH (10:28)
[2021-11-23] MEDS: PRENATAL VITAMINS W/ FOLIC ACID TABLET (FP) PO SCH (10:28)
[2021-11-23] MEDS: LISINOPRIL 20 MG TABLET PO SCH (10:28)
[2021-11-23] MEDS: FAMOTIDINE 20 MG TABLET PO SCH ×2 (10:28→21:17)
[2021-11-23] MEDS: VENLAFAXINE HCL 37.5 MG TABLET PO SCH (10:29)
[2021-11-23] MEDS: TOLNAFTATE 1% CREAM 15 GM TUBE TP SCH ×2 (10:30→21:18)
[2021-11-23] MEDS ORDERED: TUBERCULIN PPD 5 TU/0.1ML VIAL ID ONE (13:54)
[2021-11-23] MEDS: MELATONIN 5 MG TABLETS PO SCH (21:17)
[2021-11-23] MEDS: THIAMINE HCL 100 MG TABLET (FP) PO SCH (21:17)
[2021-11-23] MEDS: QUEtiapine FUMARATE 100 MG TABLET (FP) PO SCH (21:17)
[2021-11-23] MEDS: hydrOXYzine PAMOATE 50 MG CAPSULE (FP) PO SCH (21:17)
[2021-11-23] MEDS: NICOTINE 10 MG CARTRIDGE (INHALER) IH PRN (22:44)
[2021-11-24] MEDS: LISINOPRIL 20 MG TABLET PO SCH ×2 (06:02→09:43)
[2021-11-24] MEDS: DIVALPROEX SODIUM 500 MG TABLET E.C. PO SCH ×3 (06:02→21:53)
[2021-11-24] MEDS: methaDONE HCL 40 MG DISPERSABLE TABLET PO SCH (06:02)
[2021-11-24] MEDS: NICOTINE 10 MG CARTRIDGE (INHALER) IH PRN ×2 (09:41→21:54)
[2021-11-24] MEDS: PRENATAL VITAMINS W/ FOLIC ACID TABLET (FP) PO SCH (09:41)
[2021-11-24] MEDS: VENLAFAXINE HCL 37.5 MG TABLET PO SCH (09:42)
[2021-11-24] MEDS: NICOTINE 14 MG/24 HOURS TOPICAL PATCH TD SCH (09:42)
[2021-11-24] MEDS: FAMOTIDINE 20 MG TABLET PO SCH ×2 (09:42→21:53)
[2021-11-24] MEDS: TOLNAFTATE 1% CREAM 15 GM TUBE TP SCH ×2 (09:43→22:03)
[2021-11-24] MEDS: IBUPROFEN 400 MG TABLET (FP) PO PRN (12:31)
[2021-11-24] MEDS: amLODIPine BESYLATE 10 MG TABLET (FP) PO SCH (16:50)
[2021-11-24] MEDS: cloNIDine HCL 0.1 MG TABLET PO PRN (21:52)
[2021-11-24] MEDS: QUEtiapine FUMARATE 100 MG TABLET (FP) PO SCH (21:53)
[2021-11-24] MEDS: SUVOREXANT 10 MG TABLET PO PRN (21:53)
[2021-11-24] MEDS: NICOTINE POLACRILEX 2 MG GUM BUC PRN (21:55)
[2021-11-24] MEDS: MELATONIN 5 MG TABLETS PO SCH (21:56)
[2021-11-24] MEDS: THIAMINE HCL 100 MG TABLET (FP) PO SCH (22:03)
[2021-11-24] MEDS: hydrOXYzine PAMOATE 50 MG CAPSULE (FP) PO SCH (22:03)
[2021-11-25] MEDS: amLODIPine BESYLATE 10 MG TABLET (FP) PO SCH ×2 (06:05→10:00)
[2021-11-25] MEDS: methaDONE HCL 40 MG DISPERSABLE TABLET PO SCH (06:05)
[2021-11-25] MEDS: DIVALPROEX SODIUM 500 MG TABLET E.C. PO SCH ×3 (06:05→21:46)
[2021-11-25] MEDS: cloNIDine HCL 0.1 MG TABLET PO PRN (06:05)
[2021-11-25] MEDS: FAMOTIDINE 20 MG TABLET PO SCH ×2 (09:44→21:46)
[2021-11-25] MEDS: VENLAFAXINE HCL 37.5 MG TABLET PO SCH (09:44)
[2021-11-25] MEDS: TOLNAFTATE 1% CREAM 15 GM TUBE TP SCH ×2 (09:44→22:08)
[2021-11-25] MEDS: PRENATAL VITAMINS W/ FOLIC ACID TABLET (FP) PO SCH (09:44)
[2021-11-25] MEDS: LISINOPRIL 20 MG TABLET PO SCH (09:44)
[2021-11-25] MEDS: IBUPROFEN 400 MG TABLET (FP) PO PRN ×2 (09:45→20:12)
[2021-11-25] MEDS: NICOTINE 10 MG CARTRIDGE (INHALER) IH PRN (09:46)
[2021-11-25] MEDS: NICOTINE 14 MG/24 HOURS TOPICAL PATCH TD SCH (10:00)
[2021-11-25] MEDS: hydrOXYzine PAMOATE 50 MG CAPSULE (FP) PO SCH (21:46)
[2021-11-25] MEDS: QUEtiapine FUMARATE 100 MG TABLET (FP) PO SCH (21:46)
[2021-11-25] MEDS: THIAMINE HCL 100 MG TABLET (FP) PO SCH (21:46)
[2021-11-25] MEDS: MELATONIN 5 MG TABLETS PO SCH (21:47)
[2021-11-25] MEDS: SUVOREXANT 10 MG TABLET PO PRN (21:48)
[2021-11-25] MEDS: ALBUTEROL SO4 HFA INHALER IH PRN (23:09)
[2021-11-26] MEDS: DIVALPROEX SODIUM 500 MG TABLET E.C. PO SCH ×3 (06:53→21:10)
[2021-11-26] MEDS: methaDONE HCL 40 MG DISPERSABLE TABLET PO SCH (06:53)
[2021-11-26] MEDS: cloNIDine HCL 0.1 MG TABLET PO PRN ×2 (06:53→21:12)
[2021-11-26] MEDS: NICOTINE 10 MG CARTRIDGE (INHALER) IH PRN ×2 (06:59→14:29)
[2021-11-26] MEDS: TOLNAFTATE 1% CREAM 15 GM TUBE TP SCH ×2 (10:46→21:13)
[2021-11-26] MEDS: amLODIPine BESYLATE 10 MG TABLET (FP) PO SCH (10:46)
[2021-11-26] MEDS: LISINOPRIL 20 MG TABLET PO SCH (10:46)
[2021-11-26] MEDS: VENLAFAXINE HCL 37.5 MG TABLET PO SCH (10:46)
[2021-11-26] MEDS: FAMOTIDINE 20 MG TABLET PO SCH ×2 (10:46→21:10)
[2021-11-26] MEDS: PRENATAL VITAMINS W/ FOLIC ACID TABLET (FP) PO SCH (10:46)
[2021-11-26] MEDS: NICOTINE 14 MG/24 HOURS TOPICAL PATCH TD SCH (10:47)
[2021-11-26] MEDS: ALBUTEROL SO4 HFA INHALER IH PRN ×2 (10:47→22:02)
[2021-11-26] MEDS: hydrOXYzine PAMOATE 50 MG CAPSULE (FP) PO SCH (21:10)
[2021-11-26] MEDS: QUEtiapine FUMARATE 100 MG TABLET (FP) PO SCH (21:10)
[2021-11-26] MEDS: THIAMINE HCL 100 MG TABLET (FP) PO SCH (21:10)
[2021-11-26] MEDS: MELATONIN 5 MG TABLETS PO SCH (21:10)
[2021-11-26] MEDS: COLLOIDAL OATMEAL 1 BAR EACH TP PRN (21:12)
[2021-11-26] MEDS: SUVOREXANT 10 MG TABLET PO PRN (21:12)
[2021-11-26] MEDS: BUDESONIDE/FORMETEROL FUMARATE 80/4.5 mcg INHALER IH SCH (22:01)
[2021-11-27] MEDS: methaDONE HCL 40 MG DISPERSABLE TABLET PO SCH (06:13)
[2021-11-27] MEDS: DIVALPROEX SODIUM 500 MG TABLET E.C. PO SCH ×3 (06:13→21:10)
[2021-11-27] MEDS: NICOTINE POLACRILEX 2 MG GUM BUC PRN ×2 (08:37→10:44)
[2021-11-27] MEDS: PRENATAL VITAMINS W/ FOLIC ACID TABLET (FP) PO SCH (10:41)
[2021-11-27] MEDS: FAMOTIDINE 20 MG TABLET PO SCH ×2 (10:41→21:10)
[2021-11-27] MEDS: amLODIPine BESYLATE 10 MG TABLET (FP) PO SCH (10:41)
[2021-11-27] MEDS: LISINOPRIL 20 MG TABLET PO SCH (10:42)
[2021-11-27] MEDS: VENLAFAXINE HCL 37.5 MG TABLET PO SCH (10:42)
[2021-11-27] MEDS: BUDESONIDE/FORMETEROL FUMARATE 80/4.5 mcg INHALER IH SCH ×2 (10:42→21:12)
[2021-11-27] MEDS: NICOTINE 14 MG/24 HOURS TOPICAL PATCH TD SCH (10:42)
[2021-11-27] MEDS: IBUPROFEN 400 MG TABLET (FP) PO PRN (10:43)
[2021-11-27] MEDS: ALBUTEROL SO4 HFA INHALER IH PRN (10:43)
[2021-11-27] MEDS: METHYL SALICYLATE/MENTHOL OINT 30 GM TUBE TP SCH ×2 (11:01→21:37)
[2021-11-27] MEDS: TOLNAFTATE 1% CREAM 15 GM TUBE TP SCH ×2 (11:01→21:10)
[2021-11-27] MEDS: MINERAL OIL/PETROLAT/WATER TOPICAL CREAM 113 GM JAR TP SCH (12:40)
[2021-11-27] MEDS: NICOTINE 10 MG CARTRIDGE (INHALER) IH PRN (19:22)
[2021-11-27] MEDS: THIAMINE HCL 100 MG TABLET (FP) PO SCH (21:10)
[2021-11-27] MEDS: hydrOXYzine PAMOATE 50 MG CAPSULE (FP) PO SCH (21:10)
[2021-11-27] MEDS: QUEtiapine FUMARATE 100 MG TABLET (FP) PO SCH (21:10)
[2021-11-27] MEDS: MELATONIN 5 MG TABLETS PO SCH (21:37)
[2021-11-28] MEDS: DIVALPROEX SODIUM 500 MG TABLET E.C. PO SCH ×3 (06:49→21:22)
[2021-11-28] MEDS: methaDONE HCL 40 MG DISPERSABLE TABLET PO SCH (06:49)
[2021-11-28] MEDS: NICOTINE 10 MG CARTRIDGE (INHALER) IH PRN ×3 (07:02→21:42)
[2021-11-28] MEDS: PRENATAL VITAMINS W/ FOLIC ACID TABLET (FP) PO SCH (10:10)
[2021-11-28] MEDS: LISINOPRIL 20 MG TABLET PO SCH (10:10)
[2021-11-28] MEDS: amLODIPine BESYLATE 10 MG TABLET (FP) PO SCH (10:10)
[2021-11-28] MEDS: FAMOTIDINE 20 MG TABLET PO SCH ×2 (10:10→21:22)
[2021-11-28] MEDS: NICOTINE 14 MG/24 HOURS TOPICAL PATCH TD SCH (10:11)
[2021-11-28] MEDS: BUDESONIDE/FORMETEROL FUMARATE 80/4.5 mcg INHALER IH SCH ×2 (10:11→21:21)
[2021-11-28] MEDS: METHYL SALICYLATE/MENTHOL OINT 30 GM TUBE TP SCH ×2 (10:11→21:22)
[2021-11-28] MEDS: ALBUTEROL SO4 HFA INHALER IH PRN (10:11)
[2021-11-28] MEDS: MINERAL OIL/PETROLAT/WATER TOPICAL CREAM 113 GM JAR TP SCH (10:13)
[2021-11-28] MEDS: VENLAFAXINE HCL 37.5 MG TABLET PO SCH (10:14)
[2021-11-28] MEDS: NICOTINE POLACRILEX 2 MG GUM BUC PRN (10:14)
[2021-11-28] MEDS: TOLNAFTATE 1% CREAM 15 GM TUBE TP SCH ×2 (10:37→21:23)
[2021-11-28] MEDS: THIAMINE HCL 100 MG TABLET (FP) PO SCH (21:22)
[2021-11-28] MEDS: hydrOXYzine PAMOATE 50 MG CAPSULE (FP) PO SCH (21:22)
[2021-11-28] MEDS: MELATONIN 5 MG TABLETS PO SCH (21:22)
[2021-11-28] MEDS: QUEtiapine FUMARATE 100 MG TABLET (FP) PO SCH (21:22)
[2021-11-28] MEDS: SUVOREXANT 10 MG TABLET PO PRN (21:25)
[2021-11-29] MEDS: DIVALPROEX SODIUM 500 MG TABLET E.C. PO SCH ×3 (06:00→21:14)
[2021-11-29] MEDS: methaDONE HCL 40 MG DISPERSABLE TABLET PO SCH (06:00)
[2021-11-29] MEDS: FAMOTIDINE 20 MG TABLET PO SCH ×2 (10:39→21:14)
[2021-11-29] MEDS: BUDESONIDE/FORMETEROL FUMARATE 80/4.5 mcg INHALER IH SCH ×2 (10:39→21:14)
[2021-11-29] MEDS: LISINOPRIL 20 MG TABLET PO SCH (10:39)
[2021-11-29] MEDS: NICOTINE 14 MG/24 HOURS TOPICAL PATCH TD SCH (10:39)
[2021-11-29] MEDS: PRENATAL VITAMINS W/ FOLIC ACID TABLET (FP) PO SCH (10:39)
[2021-11-29] MEDS: amLODIPine BESYLATE 10 MG TABLET (FP) PO SCH (10:39)
[2021-11-29] MEDS: VENLAFAXINE HCL 37.5 MG TABLET PO SCH (10:40)
[2021-11-29] MEDS: MINERAL OIL/PETROLAT/WATER TOPICAL CREAM 113 GM JAR TP SCH (10:40)
[2021-11-29] MEDS: TOLNAFTATE 1% CREAM 15 GM TUBE TP SCH ×2 (10:41→21:15)
[2021-11-29] MEDS: METHYL SALICYLATE/MENTHOL OINT 30 GM TUBE TP SCH ×2 (10:41→21:14)
[2021-11-29] MEDS: NICOTINE 10 MG CARTRIDGE (INHALER) IH PRN ×2 (13:53→21:52)
[2021-11-29] MEDS: QUEtiapine FUMARATE 100 MG TABLET (FP) PO SCH (21:14)
[2021-11-29] MEDS: THIAMINE HCL 100 MG TABLET (FP) PO SCH (21:14)
[2021-11-29] MEDS: hydrOXYzine PAMOATE 50 MG CAPSULE (FP) PO SCH (21:14)
[2021-11-29] MEDS: MELATONIN 5 MG TABLETS PO SCH (21:14)
[2021-11-29] MEDS ORDERED: SUVOREXANT 10 MG TABLET PO PRN (22:00)
[2021-11-30] MEDS: ALBUTEROL SO4 HFA INHALER IH PRN ×2 (04:30→21:13)
[2021-11-30] MEDS: methaDONE HCL 40 MG DISPERSABLE TABLET PO SCH (06:29)
[2021-11-30] MEDS: DIVALPROEX SODIUM 500 MG TABLET E.C. PO SCH ×3 (06:30→21:13)
[2021-11-30] MEDS: amLODIPine BESYLATE 10 MG TABLET (FP) PO SCH (10:50)
[2021-11-30] MEDS: TOLNAFTATE 1% CREAM 15 GM TUBE TP SCH ×2 (10:50→21:47)
[2021-11-30] MEDS: BUDESONIDE/FORMETEROL FUMARATE 80/4.5 mcg INHALER IH SCH ×2 (10:50→21:13)
[2021-11-30] MEDS: LISINOPRIL 20 MG TABLET PO SCH (10:51)
[2021-11-30] MEDS: PRENATAL VITAMINS W/ FOLIC ACID TABLET (FP) PO SCH (10:51)
[2021-11-30] MEDS: FAMOTIDINE 20 MG TABLET PO SCH ×2 (10:51→21:14)
[2021-11-30] MEDS: IBUPROFEN 400 MG TABLET (FP) PO PRN (10:51)
[2021-11-30] MEDS: MINERAL OIL/PETROLAT/WATER TOPICAL CREAM 113 GM JAR TP SCH (10:53)
[2021-11-30] MEDS: NICOTINE 10 MG CARTRIDGE (INHALER) IH PRN ×3 (10:53→21:43)
[2021-11-30] MEDS: VENLAFAXINE HCL 37.5 MG TABLET PO SCH (10:54)
[2021-11-30] MEDS: METHYL SALICYLATE/MENTHOL OINT 30 GM TUBE TP SCH ×2 (10:55→21:15)
[2021-11-30] MEDS: NICOTINE 14 MG/24 HOURS TOPICAL PATCH TD SCH (10:55)
[2021-11-30] MEDS: NICOTINE POLACRILEX 2 MG GUM BUC PRN (14:30)
[2021-11-30] MEDS: THIAMINE HCL 100 MG TABLET (FP) PO SCH (21:14)
[2021-11-30] MEDS: cloNIDine HCL 0.1 MG TABLET PO PRN (21:14)
[2021-11-30] MEDS: QUEtiapine FUMARATE 100 MG TABLET (FP) PO SCH (21:14)
[2021-11-30] MEDS: MELATONIN 5 MG TABLETS PO SCH (21:14)
[2021-11-30] MEDS: hydrOXYzine PAMOATE 50 MG CAPSULE (FP) PO SCH (21:14)
[2021-12-01] MEDS: DIVALPROEX SODIUM 500 MG TABLET E.C. PO SCH ×3 (06:37→21:52)
[2021-12-01] MEDS: methaDONE HCL 40 MG DISPERSABLE TABLET PO SCH (06:37)
[2021-12-01] MEDS: PRENATAL VITAMINS W/ FOLIC ACID TABLET (FP) PO SCH (10:56)
[2021-12-01] MEDS: FAMOTIDINE 20 MG TABLET PO SCH ×2 (10:57→21:52)
[2021-12-01] MEDS: LISINOPRIL 20 MG TABLET PO SCH (10:57)
[2021-12-01] MEDS: NICOTINE 10 MG CARTRIDGE (INHALER) IH PRN (10:57)
[2021-12-01] MEDS: BUDESONIDE/FORMETEROL FUMARATE 80/4.5 mcg INHALER IH SCH ×2 (10:57→21:51)
[2021-12-01] MEDS: amLODIPine BESYLATE 10 MG TABLET (FP) PO SCH (10:57)
[2021-12-01] MEDS: NICOTINE 14 MG/24 HOURS TOPICAL PATCH TD SCH (10:58)
[2021-12-01] MEDS: METHYL SALICYLATE/MENTHOL OINT 30 GM TUBE TP SCH ×2 (10:59→22:01)
[2021-12-01] MEDS: VENLAFAXINE HCL 37.5 MG TABLET PO SCH (10:59)
[2021-12-01] MEDS: TOLNAFTATE 1% CREAM 15 GM TUBE TP SCH ×2 (10:59→21:52)
[2021-12-01] MEDS: MINERAL OIL/PETROLAT/WATER TOPICAL CREAM 113 GM JAR TP SCH (10:59)
[2021-12-01] MEDS: NICOTINE POLACRILEX 2 MG GUM BUC PRN (11:01)
[2021-12-01] MEDS: HYDROCHLOROTHIAZIDE 25 MG TABLET (FP) PO SCH (19:01)
[2021-12-01] MEDS: THIAMINE HCL 100 MG TABLET (FP) PO SCH (21:52)
[2021-12-01] MEDS: QUEtiapine FUMARATE 100 MG TABLET (FP) PO SCH (21:52)
[2021-12-01] MEDS: hydrOXYzine PAMOATE 50 MG CAPSULE (FP) PO SCH (21:52)
[2021-12-01] MEDS: MELATONIN 5 MG TABLETS PO SCH (21:52)
[2021-12-01] MEDS: COLLOIDAL OATMEAL 1 BAR EACH TP PRN (22:40)
[2021-12-02] MEDS: DIVALPROEX SODIUM 500 MG TABLET E.C. PO SCH ×3 (06:20→21:44)
[2021-12-02] MEDS: methaDONE HCL 40 MG DISPERSABLE TABLET PO SCH (06:21)
[2021-12-02] MEDS: PRENATAL VITAMINS W/ FOLIC ACID TABLET (FP) PO SCH (10:26)
[2021-12-02] MEDS: BUDESONIDE/FORMETEROL FUMARATE 80/4.5 mcg INHALER IH SCH ×2 (10:27→21:43)
[2021-12-02] MEDS: HYDROCHLOROTHIAZIDE 25 MG TABLET (FP) PO SCH (10:27)
[2021-12-02] MEDS: LISINOPRIL 20 MG TABLET PO SCH (10:27)
[2021-12-02] MEDS: amLODIPine BESYLATE 10 MG TABLET (FP) PO SCH (10:27)
[2021-12-02] MEDS: FAMOTIDINE 20 MG TABLET PO SCH ×2 (10:27→21:44)
[2021-12-02] MEDS: METHYL SALICYLATE/MENTHOL OINT 30 GM TUBE TP SCH ×2 (10:28→21:45)
[2021-12-02] MEDS: TOLNAFTATE 1% CREAM 15 GM TUBE TP SCH ×2 (10:29→21:45)
[2021-12-02] MEDS: VENLAFAXINE HCL 37.5 MG TABLET PO SCH (10:29)
[2021-12-02] MEDS: NICOTINE 14 MG/24 HOURS TOPICAL PATCH TD SCH (10:29)
[2021-12-02] MEDS: MINERAL OIL/PETROLAT/WATER TOPICAL CREAM 113 GM JAR TP SCH (10:30)
[2021-12-02] MEDS: NICOTINE 10 MG CARTRIDGE (INHALER) IH PRN ×2 (10:51→21:51)
[2021-12-02] MEDS: NICOTINE POLACRILEX 2 MG GUM BUC PRN (11:06)
[2021-12-02] MEDS: hydrOXYzine PAMOATE 50 MG CAPSULE (FP) PO SCH (21:44)
[2021-12-02] MEDS: ALBUTEROL SO4 HFA INHALER IH PRN (21:44)
[2021-12-02] MEDS: cloNIDine HCL 0.1 MG TABLET PO PRN (21:44)
[2021-12-02] MEDS: QUEtiapine FUMARATE 100 MG TABLET (FP) PO SCH (21:44)
[2021-12-02] MEDS: THIAMINE HCL 100 MG TABLET (FP) PO SCH (21:44)
[2021-12-02] MEDS: MELATONIN 5 MG TABLETS PO SCH (21:45)
[2021-12-02] MEDS ORDERED: SUVOREXANT 10 MG TABLET PO PRN (22:00)
[2021-12-03] MEDS: DIVALPROEX SODIUM 500 MG TABLET E.C. PO SCH ×3 (05:57→21:15)
[2021-12-03] MEDS: methaDONE HCL 40 MG DISPERSABLE TABLET PO SCH (05:57)
[2021-12-03] MEDS: NICOTINE 10 MG CARTRIDGE (INHALER) IH PRN ×2 (05:58→13:09)
[2021-12-03] MEDS: METHYL SALICYLATE/MENTHOL OINT 30 GM TUBE TP SCH ×2 (10:47→21:15)
[2021-12-03] MEDS: PRENATAL VITAMINS W/ FOLIC ACID TABLET (FP) PO SCH (10:47)
[2021-12-03] MEDS: VENLAFAXINE HCL 37.5 MG TABLET PO SCH (10:48)
[2021-12-03] MEDS: TOLNAFTATE 1% CREAM 15 GM TUBE TP SCH ×2 (10:48→21:16)
[2021-12-03] MEDS: amLODIPine BESYLATE 10 MG TABLET (FP) PO SCH (10:48)
[2021-12-03] MEDS: FAMOTIDINE 20 MG TABLET PO SCH ×2 (10:48→21:15)
[2021-12-03] MEDS: BUDESONIDE/FORMETEROL FUMARATE 80/4.5 mcg INHALER IH SCH ×2 (10:48→21:18)
[2021-12-03] MEDS: HYDROCHLOROTHIAZIDE 25 MG TABLET (FP) PO SCH (10:48)
[2021-12-03] MEDS: NICOTINE 14 MG/24 HOURS TOPICAL PATCH TD SCH (10:49)
[2021-12-03] MEDS: IBUPROFEN 400 MG TABLET (FP) PO PRN (10:51)
[2021-12-03] MEDS: MINERAL OIL/PETROLAT/WATER TOPICAL CREAM 113 GM JAR TP SCH (11:00)
[2021-12-03] MEDS: LISINOPRIL 20 MG TABLET PO SCH (13:18)
[2021-12-03] MEDS: ALBUTEROL SO4 HFA INHALER IH PRN (21:14)
[2021-12-03] MEDS: QUEtiapine FUMARATE 100 MG TABLET (FP) PO SCH (21:15)
[2021-12-03] MEDS: THIAMINE HCL 100 MG TABLET (FP) PO SCH (21:15)
[2021-12-03] MEDS: hydrOXYzine PAMOATE 50 MG CAPSULE (FP) PO SCH (21:15)
[2021-12-03] MEDS: MELATONIN 5 MG TABLETS PO SCH (21:16)
[2021-12-04] MEDS: DIVALPROEX SODIUM 500 MG TABLET E.C. PO SCH ×3 (06:05→21:34)
[2021-12-04] MEDS: methaDONE HCL 40 MG DISPERSABLE TABLET PO SCH (06:05)
[2021-12-04] MEDS: ALBUTEROL SO4 HFA INHALER IH PRN (08:14)
[2021-12-04] MEDS: METHYL SALICYLATE/MENTHOL OINT 30 GM TUBE TP SCH ×2 (10:34→22:00)
[2021-12-04] MEDS: PRENATAL VITAMINS W/ FOLIC ACID TABLET (FP) PO SCH (10:34)
[2021-12-04] MEDS: LISINOPRIL 20 MG TABLET PO SCH (10:35)
[2021-12-04] MEDS: BUDESONIDE/FORMETEROL FUMARATE 80/4.5 mcg INHALER IH SCH ×2 (10:35→21:35)
[2021-12-04] MEDS: FAMOTIDINE 20 MG TABLET PO SCH ×2 (10:35→21:34)
[2021-12-04] MEDS: HYDROCHLOROTHIAZIDE 25 MG TABLET (FP) PO SCH (10:35)
[2021-12-04] MEDS: amLODIPine BESYLATE 10 MG TABLET (FP) PO SCH (10:35)
[2021-12-04] MEDS: TOLNAFTATE 1% CREAM 15 GM TUBE TP SCH ×2 (10:35→22:00)
[2021-12-04] MEDS: MINERAL OIL/PETROLAT/WATER TOPICAL CREAM 113 GM JAR TP SCH (10:36)
[2021-12-04] MEDS: NICOTINE 14 MG/24 HOURS TOPICAL PATCH TD SCH (10:38)
[2021-12-04] MEDS: VENLAFAXINE HCL 37.5 MG TABLET PO SCH (10:38)
[2021-12-04] MEDS: NICOTINE 10 MG CARTRIDGE (INHALER) IH PRN ×2 (15:13→21:36)
[2021-12-04] MEDS: THIAMINE HCL 100 MG TABLET (FP) PO SCH (21:34)
[2021-12-04] MEDS: hydrOXYzine PAMOATE 50 MG CAPSULE (FP) PO SCH (21:34)
[2021-12-04] MEDS: QUEtiapine FUMARATE 100 MG TABLET (FP) PO SCH (21:34)
[2021-12-04] MEDS: MELATONIN 5 MG TABLETS PO SCH (21:34)
[2021-12-05] MEDS: DIVALPROEX SODIUM 500 MG TABLET E.C. PO SCH ×3 (06:23→21:10)
[2021-12-05] MEDS: methaDONE HCL 40 MG DISPERSABLE TABLET PO SCH (06:23)
[2021-12-05] MEDS: NICOTINE 10 MG CARTRIDGE (INHALER) IH PRN ×3 (06:24→21:13)
[2021-12-05 08:05] VITALS: RESP 18
[2021-12-05] MEDS: LISINOPRIL 20 MG TABLET PO SCH (10:32)
[2021-12-05] MEDS: HYDROCHLOROTHIAZIDE 25 MG TABLET (FP) PO SCH (10:32)
[2021-12-05] MEDS: amLODIPine BESYLATE 10 MG TABLET (FP) PO SCH (10:32)
[2021-12-05] MEDS: BUDESONIDE/FORMETEROL FUMARATE 80/4.5 mcg INHALER IH SCH ×2 (10:32→21:10)
[2021-12-05] MEDS: METHYL SALICYLATE/MENTHOL OINT 30 GM TUBE TP SCH ×2 (10:33→21:45)
[2021-12-05] MEDS: NICOTINE 14 MG/24 HOURS TOPICAL PATCH TD SCH (10:33)
[2021-12-05] MEDS: MINERAL OIL/PETROLAT/WATER TOPICAL CREAM 113 GM JAR TP SCH (10:33)
[2021-12-05] MEDS: VENLAFAXINE HCL 37.5 MG TABLET PO SCH (10:33)
[2021-12-05] MEDS: NICOTINE POLACRILEX 2 MG GUM BUC PRN ×2 (10:33→13:12)
[2021-12-05] MEDS: FAMOTIDINE 20 MG TABLET PO SCH ×2 (10:33→21:10)
[2021-12-05] MEDS: PRENATAL VITAMINS W/ FOLIC ACID TABLET (FP) PO SCH (10:34)
[2021-12-05] MEDS: TOLNAFTATE 1% CREAM 15 GM TUBE TP SCH ×2 (10:34→21:13)
[2021-12-05] MEDS: IBUPROFEN 400 MG TABLET (FP) PO PRN (13:11)
[2021-12-05] MEDS: THIAMINE HCL 100 MG TABLET (FP) PO SCH (21:10)
[2021-12-05] MEDS: hydrOXYzine PAMOATE 50 MG CAPSULE (FP) PO SCH (21:10)
[2021-12-05] MEDS: QUEtiapine FUMARATE 100 MG TABLET (FP) PO SCH (21:10)
[2021-12-05] MEDS: MELATONIN 5 MG TABLETS PO SCH (21:11)
[2021-12-06] MEDS: DIVALPROEX SODIUM 500 MG TABLET E.C. PO SCH ×3 (06:20→21:40)
[2021-12-06] MEDS: methaDONE HCL 40 MG DISPERSABLE TABLET PO SCH (06:20)
[2021-12-06] MEDS: METHYL SALICYLATE/MENTHOL OINT 30 GM TUBE TP SCH ×2 (09:49→21:26)
[2021-12-06] MEDS: NICOTINE 10 MG CARTRIDGE (INHALER) IH PRN ×3 (09:50→21:23)
[2021-12-06] MEDS: MINERAL OIL/PETROLAT/WATER TOPICAL CREAM 113 GM JAR TP SCH (09:50)
[2021-12-06] MEDS: NICOTINE 14 MG/24 HOURS TOPICAL PATCH TD SCH (09:50)
[2021-12-06] MEDS: NICOTINE POLACRILEX 2 MG GUM BUC PRN (09:51)
[2021-12-06] MEDS: BUDESONIDE/FORMETEROL FUMARATE 80/4.5 mcg INHALER IH SCH ×2 (09:51→21:08)
[2021-12-06] MEDS: amLODIPine BESYLATE 10 MG TABLET (FP) PO SCH (09:52)
[2021-12-06] MEDS: VENLAFAXINE HCL 37.5 MG TABLET PO SCH (09:52)
[2021-12-06] MEDS: FAMOTIDINE 20 MG TABLET PO SCH ×2 (09:52→21:09)
[2021-12-06] MEDS: LISINOPRIL 20 MG TABLET PO SCH (09:52)
[2021-12-06] MEDS: HYDROCHLOROTHIAZIDE 25 MG TABLET (FP) PO SCH (09:52)
[2021-12-06] MEDS: PRENATAL VITAMINS W/ FOLIC ACID TABLET (FP) PO SCH (09:53)
[2021-12-06] MEDS: TOLNAFTATE 1% CREAM 15 GM TUBE TP SCH ×2 (09:53→21:09)
[2021-12-06] MEDS: QUEtiapine FUMARATE 100 MG TABLET (FP) PO SCH (21:08)
[2021-12-06] MEDS: hydrOXYzine PAMOATE 50 MG CAPSULE (FP) PO SCH (21:09)
[2021-12-06] MEDS: THIAMINE HCL 100 MG TABLET (FP) PO SCH (21:09)
[2021-12-06] MEDS: IBUPROFEN 400 MG TABLET (FP) PO PRN (21:10)
[2021-12-06] MEDS: MELATONIN 5 MG TABLETS PO SCH (21:41)
[2021-12-07] MEDS: DIVALPROEX SODIUM 500 MG TABLET E.C. PO SCH ×3 (06:18→21:51)
[2021-12-07] MEDS: methaDONE HCL 40 MG DISPERSABLE TABLET PO SCH (06:19)
[2021-12-07] MEDS: NICOTINE 10 MG CARTRIDGE (INHALER) IH PRN ×3 (06:54→21:49)
[2021-12-07] MEDS: BUDESONIDE/FORMETEROL FUMARATE 80/4.5 mcg INHALER IH SCH ×2 (10:33→21:20)
[2021-12-07] MEDS: LISINOPRIL 20 MG TABLET PO SCH (10:33)
[2021-12-07] MEDS: VENLAFAXINE HCL 37.5 MG TABLET PO SCH (10:33)
[2021-12-07] MEDS: HYDROCHLOROTHIAZIDE 25 MG TABLET (FP) PO SCH (10:33)
[2021-12-07] MEDS: FAMOTIDINE 20 MG TABLET PO SCH ×2 (10:33→21:19)
[2021-12-07] MEDS: amLODIPine BESYLATE 10 MG TABLET (FP) PO SCH (10:33)
[2021-12-07] MEDS: MINERAL OIL/PETROLAT/WATER TOPICAL CREAM 113 GM JAR TP SCH (10:34)
[2021-12-07] MEDS: METHYL SALICYLATE/MENTHOL OINT 30 GM TUBE TP SCH ×2 (10:34→23:15)
[2021-12-07] MEDS: PRENATAL VITAMINS W/ FOLIC ACID TABLET (FP) PO SCH (10:35)
[2021-12-07] MEDS: NICOTINE 14 MG/24 HOURS TOPICAL PATCH TD SCH (10:35)
[2021-12-07] MEDS: NICOTINE POLACRILEX 2 MG GUM BUC PRN ×2 (10:35→13:38)
[2021-12-07] MEDS: TOLNAFTATE 1% CREAM 15 GM TUBE TP SCH ×2 (10:35→21:21)
[2021-12-07] MEDS: ALBUTEROL SO4 HFA INHALER IH PRN (20:55)
[2021-12-07] MEDS: THIAMINE HCL 100 MG TABLET (FP) PO SCH (21:19)
[2021-12-07] MEDS: QUEtiapine FUMARATE 100 MG TABLET (FP) PO SCH (21:19)
[2021-12-07] MEDS: SUVOREXANT 10 MG TABLET PO PRN (21:19)
[2021-12-07] MEDS: hydrOXYzine PAMOATE 50 MG CAPSULE (FP) PO SCH (21:19)
[2021-12-07] MEDS: MELATONIN 5 MG TABLETS PO SCH (21:50)
[2021-12-08] MEDS: DIVALPROEX SODIUM 500 MG TABLET E.C. PO SCH ×3 (06:13→21:07)
[2021-12-08] MEDS: methaDONE HCL 40 MG DISPERSABLE TABLET PO SCH (06:13)
[2021-12-08] MEDS: BUDESONIDE/FORMETEROL FUMARATE 80/4.5 mcg INHALER IH SCH ×2 (10:45→21:07)
[2021-12-08] MEDS: PRENATAL VITAMINS W/ FOLIC ACID TABLET (FP) PO SCH (10:45)
[2021-12-08] MEDS: VENLAFAXINE HCL 37.5 MG TABLET PO SCH (10:45)
[2021-12-08] MEDS: METHYL SALICYLATE/MENTHOL OINT 30 GM TUBE TP SCH ×2 (10:45→21:09)
[2021-12-08] MEDS: ALBUTEROL SO4 HFA INHALER IH PRN (10:46)
[2021-12-08] MEDS: NICOTINE 14 MG/24 HOURS TOPICAL PATCH TD SCH (10:47)
[2021-12-08] MEDS: amLODIPine BESYLATE 10 MG TABLET (FP) PO SCH (10:47)
[2021-12-08] MEDS: LISINOPRIL 20 MG TABLET PO SCH (10:47)
[2021-12-08] MEDS: MINERAL OIL/PETROLAT/WATER TOPICAL CREAM 113 GM JAR TP SCH (10:47)
[2021-12-08] MEDS: FAMOTIDINE 20 MG TABLET PO SCH ×2 (10:47→21:07)
[2021-12-08] MEDS: TOLNAFTATE 1% CREAM 15 GM TUBE TP SCH ×2 (10:48→21:09)
[2021-12-08] MEDS: NICOTINE 10 MG CARTRIDGE (INHALER) IH PRN ×4 (10:50→21:09)
[2021-12-08] MEDS: NICOTINE POLACRILEX 2 MG GUM BUC PRN (10:50)
[2021-12-08] MEDS: MELATONIN 5 MG TABLETS PO SCH (21:07)
[2021-12-08] MEDS: hydrOXYzine PAMOATE 50 MG CAPSULE (FP) PO SCH (21:07)
[2021-12-08] MEDS: QUEtiapine FUMARATE 100 MG TABLET (FP) PO SCH (21:07)
[2021-12-08] MEDS: SUVOREXANT 10 MG TABLET PO PRN (21:08)
[2021-12-08] MEDS: THIAMINE HCL 100 MG TABLET (FP) PO SCH (21:43)
[2021-12-09] MEDS: DIVALPROEX SODIUM 500 MG TABLET E.C. PO SCH ×3 (06:00→21:13)
[2021-12-09] MEDS: methaDONE HCL 40 MG DISPERSABLE TABLET PO SCH (06:00)
[2021-12-09] MEDS: amLODIPine BESYLATE 10 MG TABLET (FP) PO SCH (10:31)
[2021-12-09] MEDS: METHYL SALICYLATE/MENTHOL OINT 30 GM TUBE TP SCH ×2 (10:31→21:13)
[2021-12-09] MEDS: FAMOTIDINE 20 MG TABLET PO SCH ×2 (10:31→21:13)
[2021-12-09] MEDS: MINERAL OIL/PETROLAT/WATER TOPICAL CREAM 113 GM JAR TP SCH (10:31)
[2021-12-09] MEDS: PRENATAL VITAMINS W/ FOLIC ACID TABLET (FP) PO SCH (10:31)
[2021-12-09] MEDS: NICOTINE 14 MG/24 HOURS TOPICAL PATCH TD SCH (10:31)
[2021-12-09] MEDS: TOLNAFTATE 1% CREAM 15 GM TUBE TP SCH ×2 (10:32→21:13)
[2021-12-09] MEDS: LISINOPRIL 20 MG TABLET PO SCH (10:32)
[2021-12-09] MEDS: BUDESONIDE/FORMETEROL FUMARATE 80/4.5 mcg INHALER IH SCH ×2 (10:32→21:12)
[2021-12-09] MEDS: VENLAFAXINE HCL 37.5 MG TABLET PO SCH (10:32)
[2021-12-09] MEDS: NICOTINE 10 MG CARTRIDGE (INHALER) IH PRN (10:34)
[2021-12-09] MEDS: hydrOXYzine PAMOATE 50 MG CAPSULE (FP) PO SCH (21:12)
[2021-12-09] MEDS: THIAMINE HCL 100 MG TABLET (FP) PO SCH (21:13)
[2021-12-09] MEDS: MELATONIN 5 MG TABLETS PO SCH (21:13)
[2021-12-09] MEDS: QUEtiapine FUMARATE 100 MG TABLET (FP) PO SCH (21:13)
[2021-12-10] MEDS: methaDONE HCL 40 MG DISPERSABLE TABLET PO SCH (06:25)
[2021-12-10] MEDS: DIVALPROEX SODIUM 500 MG TABLET E.C. PO SCH (06:25)
[2021-12-10] MEDS: NICOTINE 10 MG CARTRIDGE (INHALER) IH PRN (06:54)
[2021-12-10 08:35] VITALS: BP 111/66; PULSE 70; TEMP 97.7
[2021-12-10] MEDS: PRENATAL VITAMINS W/ FOLIC ACID TABLET (FP) PO SCH (09:38)
[2021-12-10] MEDS: amLODIPine BESYLATE 10 MG TABLET (FP) PO SCH (09:39)
[2021-12-10] MEDS: NICOTINE 14 MG/24 HOURS TOPICAL PATCH TD SCH (09:39)
[2021-12-10] MEDS: FAMOTIDINE 20 MG TABLET PO SCH (09:39)
[2021-12-10] MEDS: BUDESONIDE/FORMETEROL FUMARATE 80/4.5 mcg INHALER IH SCH (09:39)
[2021-12-10] MEDS: METHYL SALICYLATE/MENTHOL OINT 30 GM TUBE TP SCH (09:40)
[2021-12-10] MEDS: MINERAL OIL/PETROLAT/WATER TOPICAL CREAM 113 GM JAR TP SCH (09:40)
[2021-12-10] MEDS: TOLNAFTATE 1% CREAM 15 GM TUBE TP SCH (09:40)
[2021-12-10] MEDS: VENLAFAXINE HCL 37.5 MG TABLET PO SCH (09:42)
[2021-12-10] MEDS: LISINOPRIL 20 MG TABLET PO SCH (09:44)
== END 2021-12-10 09:51 | disposition home or self-care (01) | DRG 772 ==
LOC: YASAS 14:11 → Y5N 19:03
PROVIDERS: ADMIT Allergy & Immunology; ATTEND Psychiatry & Neurology Pain Medicine
PROC: HZ42ZZZ Group Counseling for Substance Abuse Treatment, Cognitive-Behavioral (ICD-10-PCS; principal; 2021-11-18)
DX: F11.20 Opioid dependence, uncomplicated (principal); F10.20 Alcohol dependence, uncomplicated; F14.20 Cocaine dependence, uncomplicated; F12.20 Cannabis dependence, uncomplicated; F17.210 Nicotine dependence, cigarettes, uncomplicated; F31.9 Bipolar disorder, unspecified; F19.282 Other psychoactive substance dependence with psychoactive substance-induced sleep disorder; E03.9 Hypothyroidism, unspecified; I10 Essential (primary) hypertension; J45.909 Unspecified asthma, uncomplicated; L80 Vitiligo; M25.471 Effusion, right ankle; M25.472 Effusion, left ankle; M54.50 Low back pain, unspecified; G89.29 Other chronic pain; Z88.0 Allergy status to penicillin; Z91.018 Allergy to other foods
CPT/HCPCS: 36415; 80053; 81003; 85027; 86593; 86780; 86803; C9803-CS; J0735; U0003; U0005

== ENCOUNTER 2022-07-02 13:08 | Inpatient (IN) | payer OTHER ==
[2022-07-02 15:26] VITALS: BMI 28.9
[2022-07-02] MEDS ORDERED: ACETAMINOPHEN 325 MG TABLET (FP) PO PRN (16:18)
[2022-07-02] MEDS ORDERED: BENZONATATE 200 MG CAPSULE PO PRN (16:18)
[2022-07-02] MEDS ORDERED: DICYCLOMINE HCL 10 MG CAPSULE PO PRN (16:18)
[2022-07-02] MEDS ORDERED: chlordiazePOXIDE HCL 25 MG CAPSULE PO PRN (16:18)
[2022-07-02] MEDS ORDERED: MAGNESIUM HYDROX 2400MG/30ML ORAL SUSPENSION 30 ML CUP PO PRN (16:18)
[2022-07-02] MEDS ORDERED: NALOXONE HCL 0.4 MG/ML VIAL IM PRN (16:18)
[2022-07-02] MEDS ORDERED: MAG HYDROX/AL HYDROX/SIMETH 30 ML UNIT-DOSE CUP PO PRN (16:18)
[2022-07-02] MEDS ORDERED: LOPERAMIDE HCL 2 MG CAPSULE PO PRN (16:18)
[2022-07-02] MEDS ORDERED: POLYETHYLENE GLYCOL (HEALTHYLAX) 3350 17 GM PACKET PO PRN (16:18)
[2022-07-02] MEDS ORDERED: hydrOXYzine PAMOATE 25 MG CAPSULE (FP) PO PRN (16:18)
[2022-07-02] MEDS ORDERED: guaiFENesin 600 MG TABLET.ER (FP) PO PRN (16:18)
[2022-07-02] MEDS ORDERED: IBUPROFEN 600 MG TABLET (FP) PO PRN (16:18)
[2022-07-02] MEDS ORDERED: IBUPROFEN 400 MG TABLET (FP) PO PRN (16:18)
[2022-07-02] MEDS ORDERED: BENZOCAINE/MENTHOL (CHLORASEPTIC ) LOZENGE MM PRN (16:18)
[2022-07-02] MEDS ORDERED: ONDANSETRON *ODT* 4 MG TABLET SL PRN (16:18)
[2022-07-02] MEDS ORDERED: NALOXONE HCL (KLOXXADO) 8 MG SPRAY NS PRN (16:18)
[2022-07-02] MEDS ORDERED: BISMUTH SUBSALICYLATE 524 MG/30 ML PO PRN (16:18)
[2022-07-02] MEDS ORDERED: NICOTINE 10 MG CARTRIDGE (INHALER) IH PRN (16:18)
[2022-07-02] MEDS ORDERED: METHOCARBAMOL 500 MG TABLET PO PRN (16:18)
[2022-07-02] MEDS ORDERED: ALBUTEROL SO4 HFA INHALER IH PRN (16:21)
[2022-07-02] MEDS: chlordiazePOXIDE HCL 25 MG CAPSULE PO SCH ×2 (17:42→22:09)
[2022-07-02] MEDS ORDERED: cloNIDine HCL 0.1 MG TABLET PO ONE (18:08)
[2022-07-02] MEDS: PRENATAL VITAMINS W/ FOLIC ACID TABLET (FP) PO SCH (18:18)
[2022-07-02] MEDS ORDERED: methaDONE HCL 10 MG TABLET PO ONE (19:23)
[2022-07-02] MEDS ORDERED: methaDONE 40 MG, methaDONE 30 MG PO ONE (19:30)
[2022-07-02] MEDS ORDERED: MELATONIN 5 MG TABLETS PO SCH (22:00)
[2022-07-02] MEDS: THIAMINE HCL 100 MG TABLET (FP) PO SCH (22:09)
[2022-07-02] MEDS: cloNIDine HCL 0.1 MG TABLET PO SCH (22:09)
[2022-07-03] MEDS: chlordiazePOXIDE HCL 25 MG CAPSULE PO SCH ×4 (05:08→22:02)
[2022-07-03] MEDS: NICOTINE POLACRILEX 4 MG GUM BUC PRN ×4 (05:49→22:07)
[2022-07-03] MEDS ORDERED: methaDONE HCL 10 MG TABLET PO SCH (06:00)
[2022-07-03] MEDS: cloNIDine HCL 0.1 MG TABLET PO SCH ×2 (10:10→22:01)
[2022-07-03] MEDS: PRENATAL VITAMINS W/ FOLIC ACID TABLET (FP) PO SCH (10:10)
[2022-07-03] MEDS: amLODIPine BESYLATE 10 MG TABLET (FP) PO SCH (10:10)
[2022-07-03 13:20] LABS: HEMATOCRIT 35.4 % (32.4-45.2); HEMOGLOBIN 11.7 GM/dL (10.7-15.3); MCH 32.6 pg (25.7-33.7); MCHC 32.9 g/dl (32.0-36.0); MEAN CELL VOLUME 99.1 fl (80-96); MEAN PLT VOLUME 9.7 fl (7.5-11.1); PLATELET COUNT 205 10^3/uL (134-434); RBC 3.57 M/mm3 (3.60-5.2); RDW 15.6 % (11.6-15.6); WHITE BLOOD COUNT 5.6 K/mm3 (4.0-10.0)
[2022-07-03 13:31] LABS: ALBUMIN 3.4 g/dl (3.4-5.0); BLOOD UREA NITROGEN 19.1 mg/dL (7-18)
[2022-07-03 13:34] LABS: CREATININE 1.6 mg/dL (0.55-1.3)
[2022-07-03 13:35] LABS: BILIRUBIN,TOTAL 0.4 mg/dL (0.2-1); TOT PROT 7.8 g/dl (6.4-8.2)
[2022-07-03] MEDS ORDERED: MINERAL OIL/PETROLAT/WATER TOPICAL CREAM 113 GM JAR TP PRN (14:33)
[2022-07-03] MEDS: COLLOIDAL OATMEAL 1 BAR EACH TP PRN (16:02)
[2022-07-03] MEDS: ALBUTEROL SO4 HFA INHALER IH PRN ×2 (17:52→22:06)
[2022-07-03] MEDS: QUEtiapine FUMARATE 100 MG TABLET (FP) PO SCH (22:01)
[2022-07-03] MEDS: THIAMINE HCL 100 MG TABLET (FP) PO SCH (22:01)
[2022-07-03] MEDS: DIVALPROEX SODIUM 250 MG TABLET E.C. PO SCH (22:02)
[2022-07-04] MEDS: chlordiazePOXIDE HCL 25 MG CAPSULE PO SCH ×4 (05:33→22:17)
[2022-07-04] MEDS: NICOTINE POLACRILEX 4 MG GUM BUC PRN (05:38)
[2022-07-04] MEDS: VENLAFAXINE HCL 37.5 MG E.R. CAPSULE PO SCH (10:06)
[2022-07-04] MEDS: DIVALPROEX SODIUM 250 MG TABLET E.C. PO SCH ×2 (10:06→22:45)
[2022-07-04] MEDS: amLODIPine BESYLATE 10 MG TABLET (FP) PO SCH (10:07)
[2022-07-04] MEDS: cloNIDine HCL 0.1 MG TABLET PO SCH ×2 (10:07→22:17)
[2022-07-04] MEDS: PRENATAL VITAMINS W/ FOLIC ACID TABLET (FP) PO SCH (10:07)
[2022-07-04] MEDS: THIAMINE HCL 100 MG TABLET (FP) PO SCH (22:16)
[2022-07-04] MEDS: QUEtiapine FUMARATE 100 MG TABLET (FP) PO SCH (22:16)
[2022-07-05] MEDS ORDERED: chlordiazePOXIDE HCL 10 MG CAPSULE PO PRN
[2022-07-05] MEDS: chlordiazePOXIDE HCL 10 MG CAPSULE PO SCH ×4 (06:00→22:16)
[2022-07-05] MEDS: COLLOIDAL OATMEAL 1 BAR EACH TP PRN (08:55)
[2022-07-05] MEDS: DIVALPROEX SODIUM 250 MG TABLET E.C. PO SCH ×2 (09:44→22:16)
[2022-07-05] MEDS: VENLAFAXINE HCL 37.5 MG E.R. CAPSULE PO SCH (09:44)
[2022-07-05] MEDS: PRENATAL VITAMINS W/ FOLIC ACID TABLET (FP) PO SCH (09:45)
[2022-07-05] MEDS: amLODIPine BESYLATE 10 MG TABLET (FP) PO SCH (09:45)
[2022-07-05] MEDS: cloNIDine HCL 0.1 MG TABLET PO SCH ×2 (09:45→22:16)
[2022-07-05] MEDS: ALBUTEROL SO4 HFA INHALER IH PRN ×2 (17:43→22:25)
[2022-07-05] MEDS: QUEtiapine FUMARATE 100 MG TABLET (FP) PO SCH (22:16)
[2022-07-05] MEDS: THIAMINE HCL 100 MG TABLET (FP) PO SCH (22:16)
[2022-07-06] MEDS: chlordiazePOXIDE HCL 10 MG CAPSULE PO SCH ×2 (05:31→17:25)
[2022-07-06] MEDS: ALBUTEROL SO4 HFA INHALER IH PRN (05:36)
[2022-07-06] MEDS: DIVALPROEX SODIUM 250 MG TABLET E.C. PO SCH ×2 (10:30→22:07)
[2022-07-06] MEDS: cloNIDine HCL 0.1 MG TABLET PO SCH ×2 (10:31→22:07)
[2022-07-06] MEDS: VENLAFAXINE HCL 37.5 MG E.R. CAPSULE PO SCH (10:31)
[2022-07-06] MEDS: PRENATAL VITAMINS W/ FOLIC ACID TABLET (FP) PO SCH (10:31)
[2022-07-06] MEDS: amLODIPine BESYLATE 10 MG TABLET (FP) PO SCH (10:31)
[2022-07-06] MEDS: QUEtiapine FUMARATE 100 MG TABLET (FP) PO SCH (22:07)
[2022-07-06] MEDS: THIAMINE HCL 100 MG TABLET (FP) PO SCH (22:07)
[2022-07-07] MEDS ORDERED: chlordiazePOXIDE HCL 10 MG CAPSULE PO ONE (05:00)
[2022-07-07 06:21] VITALS: PULSE 79; RESP 18
[2022-07-07 09:12] VITALS: BP 141/81; TEMP 97.9
[2022-07-07] MEDS: cloNIDine HCL 0.1 MG TABLET PO SCH (11:34)
[2022-07-07] MEDS: DIVALPROEX SODIUM 250 MG TABLET E.C. PO SCH (11:34)
[2022-07-07] MEDS: PRENATAL VITAMINS W/ FOLIC ACID TABLET (FP) PO SCH (11:35)
[2022-07-07] MEDS: amLODIPine BESYLATE 10 MG TABLET (FP) PO SCH (11:35)
[2022-07-07] MEDS: VENLAFAXINE HCL 37.5 MG E.R. CAPSULE PO SCH (11:35)
== END 2022-07-07 11:15 | disposition home or self-care (01) | DRG 773 ==
LOC: YASAS 13:08 → Y3N 16:36
PROVIDERS: ADMIT Allergy & Immunology; ATTEND Surgery
PROC: HZ2ZZZZ Detoxification Services for Substance Abuse Treatment (ICD-10-PCS; principal; 2022-07-02)
DX: F10.230 Alcohol dependence with withdrawal, uncomplicated (principal); F11.20 Opioid dependence, uncomplicated; F14.20 Cocaine dependence, uncomplicated; F12.20 Cannabis dependence, uncomplicated; F17.210 Nicotine dependence, cigarettes, uncomplicated; F19.282 Other psychoactive substance dependence with psychoactive substance-induced sleep disorder; F31.77 Bipolar disorder, in partial remission, most recent episode mixed; E03.9 Hypothyroidism, unspecified; G40.909 Epilepsy, unspecified, not intractable, without status epilepticus; I10 Essential (primary) hypertension; K21.9 Gastro-esophageal reflux disease without esophagitis; J45.909 Unspecified asthma, uncomplicated; M54.50 Low back pain, unspecified; L80 Vitiligo; Z88.0 Allergy status to penicillin; Z86.19 Personal history of other infectious and parasitic diseases; Z91.018 Allergy to other foods
CPT/HCPCS: 36415; 80053; 80164; 82140; 85027; 86593; 86780; 87811; 93005; 93010; C9803-CS; U0003; U0005